=== PATIENT | male | born 1960 | race Caucasian/White ===

== ENCOUNTER 2023-06-09 08:07 | Outpatient (REF) | payer BC, SELFPAY ==
[2023-06-09] VITALS (11 sets, daily range): BP systolic 65–149; BP diastolic 70–89
[2023-06-09 08:32] LABS: % Basophils 0.7 % (0-2); % Eosinophils 7.8 % (0-6); % Immature Granulocytes 0.9 % (0-0.5); % Lymphocytes 23.5 % (20.5-51.1); % Monocytes 7.9 % (1.7-9.3); % Neutrophils 59.2 % (42.2-75.2); Absolute Basophils 0.1 10^3/uL (0-0.2); Absolute Eosinophils 0.7 10^3/uL (0-0.7); Absolute Immature Granulocytes 0.1 10^3/uL (0-0.05); Absolute Lymphocytes 2.2 10^3/uL (1.2-3.4); Absolute Monocytes 0.7 10^3/uL (0.1-0.6); Absolute Neutrophils 5.6 10^3/uL (1.4-6.5); Hematocrit 36.2 % (39.0-52.0); Hemoglobin 13.1 g/dL (13.0-18.0); Mean Corp Hgb Conc. 36.2 g/dL (33.0-37.0); Mean Corpuscular Hgb 31.4 pg (27.0-31.0); Mean Corpuscular Volume 86.8 fL (80.0-94.0); Mean Platelet Volume 8.8 fL (7.4-10.4); Nucleated Red Blood Cells % 0 % (-); Platelet Count 173 10^3/uL (130-400); Red Blood Cell Count 4.17 10^6/uL (4.70-6.10); Red Cell Dist. Width 15.1 % (11.5-14.5); White Blood Cell Count 9.4 10^3/uL (4.8-10.8)
[2023-06-09 08:39] LABS: INR 0.99; PT 13.1 Sec (11.4-14.6)
[2023-06-09 08:46] LABS: Blood Urea Nitrogen 52 mg/dl (9-20); Calcium 9.4 mg/dl (8.4-10.2); Carbon Dioxide 24 mmol/L (22-30); Chloride 100 mmol/L (98-107); Glucose 200 mg/dl (70-99); Potassium 4.1 mmol/L (3.5-5.1); Sodium 131 mmol/L (135-145); eGFR 25.68
[2023-06-09 10:41] LABS: Glucose - Point of Care 241 mg/dl (70-99)
[2023-06-09] MEDS: NON-FORMULARY ITEM 1 MG PO (12:41)
[2023-06-09 14:29] LABS: Glucose - Point of Care 311 mg/dl (70-99)
[2023-06-09 14:35] LABS: Hematocrit 34.4 % (39.0-52.0); Hemoglobin 12.8 g/dL (13.0-18.0)
== END 2023-06-09 15:23 | disposition home or self-care (01) ==
LOC: RADI 08:07
PROVIDERS: Radiology Diagnostic Radiology; ATTENDING PHYSICIAN Specialist; FAMILY PHYSICIAN Family Medicine
DX: E11.22 Type 2 diabetes mellitus with diabetic chronic kidney disease (principal); N18.4 Chronic kidney disease, stage 4 (severe)
CPT/HCPCS: 36415; 50200; 76942; 80048; 82962; 85014; 85018; 85025; 85610; 99152; 99153

== ENCOUNTER 2023-12-20 18:26 | Inpatient (IN) | payer BC, SELFPAY ==
[2023-12-20] VITALS (7 sets, daily range): BP systolic 107–162; BP diastolic 55–104; BMI 38.7
--- NOTE | 2023-12-20 12:32 | ED.GENMED ---
History of Present Illness
General
Chief Complaint: Chest Pain
Source: patient, records and physician (PCP)
Exam Limitations: none
Time Seen by Provider: 12/20/23 12:20
Nursing documentation reviewed up to this point in time: agreed with
History of Present Illness
History of Present Illness:
63-year-old male with a past medical history of hypertension, hyperlipidemia, diabetes, SKELTON and hepatic failure status post liver transplant (2021, through [facility]) who presents to the emergency department for evaluation of multiple complaints
primary complaining of abdominal pain, lethargy also chest pain. Patient reports that he is been feeling unwell for about 2 weeks. He says initially he thought he could have a cold because he was feeling 'foggy' and very fatigued and lethargic.
However, he says that he never developed URI symptoms and his lethargy and fogginess did not improve and instead his symptoms started to worsen. He says a little over a week ago he started having abdominal pain he describes lower abdominal pain
constant 5/10 in intensity with occasional sharper episodes of cramping pain. He reports that he started having intermittent chest pains he says worse laying flat at night usually about 2-3 episodes daily of sharp substernal chest pain radiating
towards the left. Aside from being slightly worse at night no other clear triggering factors. He has not had any nausea or vomiting. He has been markedly constipated over the past week. He has not noted any fevers or chills. He has not had any
urinary symptoms. He has not had any cough, shortness of breath. He denies any other complaints. He said that he spoke with his PCP who referred him to the ER for assessment.
Past History
Past History
ED Past Medical History: Other
ED Past Surgical History: Appendectomy and Other
Social History
Tobacco: Former smoker
Alcohol: None
Personal:
Living: with family
Review of Systems
Review of Systems
All Other Systems: ROS reviewed and negative except as documented in HPI and ROS
Constitutional: Reports fatigue; Denies fever or chills
EENT: Denies sore throat or runny nose
Respiratory: Denies cough or trouble breathing
Cardiac: Reports chest pain; Denies palpitations or syncope
ABD/GI: Reports abdominal pain and constipated; Denies nausea, vomiting or diarrhea
: Denies dysuria, frequency or flank pain
Musculoskeletal: Denies neck pain or back pain
Neurological: Reports dizzy; Denies headache
Phy Exam
Physical Exam
Physical Exam:
General: Awake, alert, oriented x3; no acute distress
Head: Normocephalic, atraumatic
Eyes: Conjunctiva normal, pupils equal round reactive to light bilaterally, sclera anicteric
Throat: Airway intact, handling secretions
Neck: Trachea midline, supple without meningismus
Lungs: Clear to auscultation bilaterally, no wheezing, rales, rhonchi
Heart: Tachycardia with regular rhythm, no murmurs, gallops, or rubs
Abd: Obese but soft, non distended, diffusely tender worse in the left lower quadrant
Neuro: No gross deficit
Skin: no rash
Extremities: Trace lower extremity edema, equal pulses in all extremities
Scores
Heart Failure Risk
Heart Failure Risk Score: Not Applicable
Heart Score for Chest Pain Patients
STEMI patient?: No
History: Slightly or Non-Suspicious
ECG: Normal
Age: >45 - <65 years
Risk Factors: >/= 3 Risk Factors or History of CAD
Troponin: </= Normal Limit
Heart Score for Chest Pain Patients: 3
Heart Score Risk: 2.5% MACE over next 6 weeks
Withdrawal Assessment of Alcohol
Withdrawal Assessment Completed?: Not applicable
Course
Orders/Labs/Results
Orders:
Orders
12/20/23 12:04
Electrocardiogram (*1) Urgent
Reason for Study: Chest Pain
EKG- Treatment ONCE
12/20/23 12:21
CR Chest - 2 Views Urgent
Comment:
Reason For Exam: cp
12/20/23 12:31
CT Abd/pel Without Iv Or Oral Urgent
Reason For Exam: LLQ abd pain,elevated labs
12/20/23 12:32
0.9% Sodium Chloride 500 ml [Nss] 500 ml IV BOLUS
12/20/23 12:40
COVID-19 Antigen Urgent
Source: Nasal Swab
Complete Blood Count/With Diff Urgent
Comprehensive Metabolic Panel Urgent
TSH Reflex To Free T4 Urgent
Troponin I Urgent
12/20/23 13:35
Bladder Scan- Treatment ONCE
12/20/23 13:51
Urinalysis Reflex To Culture Urgent
Date Specimen was Collected: 12/20/23
Time Specimen was Collected: 13:42
Urine Microscopic Reflex Cult Urgent
Urine Culture Urgent
MARISOL Source: U
Specimen Description:
Date Specimen was Collected: 12/20/23
Time Specimen was Collected: 13:42
12/20/23 15:18
Urine Protein/Creat Ratio (Random) [Protein/Creat Ratio (Random)] Urgent
Urine Sodium Urgent
0.9% Sodium Chloride 500 ml [Nss] 500 ml IV BOLUS
Potassium Chloride [KCl] 40 meq PO NOW STA
12/20/23 15:20
Add On- LAB Urgent
Tests Added?: urine protein, urine sodium
Abnormal Lab Results
12/20/23 12/20/23
12:40 13:51
WBC 12.8 H 10^3/uL
(4.8-10.8)
RBC 3.85 L 10^6/uL
(4.70-6.10)
Hgb 12.2 L g/dL
(13.0-18.0)
Hct 33.0 L %
(39.0-52.0)
MCH 31.7 H pg
(27.0-31.0)
RDW 14.7 H %
(11.5-14.5)
Abs Immat Gran (auto) 0.1 H 10^3/uL
(0-0.05)
Absolute Neuts (auto) 8.6 H 10^3/uL
(1.4-6.5)
Absolute Monos (auto) 0.9 H 10^3/uL
(0.1-0.6)
Immature Gran % 0.9 H %
(0-0.5)
Potassium 3.1 L mmol/L
(3.5-5.1)
BUN 33 H mg/dl
(9-20)
Creatinine 3.2 H mg/dL
(0.7-1.3)
Glucose 202 H mg/dl
(70-99)
Total Protein 5.9 L g/dl
(6.3-8.2)
Albumin 3.4 L g/dl
(3.5-5.0)
Ur Occult Blood Reflex 1+ A
(Negative)
Urine RBC 3-6 A /HPF
(0-2)
Urine Bacteria (Reflex) Many A
(Negative)
Urine Glucose 2+ A
(Negative)
Urine Albumin (Reflex) 3+ A
(Neg - Trace)
12/20/23 12:40
12/20/23 12:40
Vital Signs
Initial and Last Documented VS:
Initial Vital Signs
Temp Pulse Resp BP Pulse Ox
36.7 C 114 18 149/104 99
12/20/23 12:14 12/20/23 12:14 12/20/23 12:14 12/20/23 12:14 12/20/23 12:14
Last Documented Vital Signs
Temp Pulse Resp BP Pulse Ox
36.7 C 92 20 130/66 97
12/20/23 12:14 12/20/23 15:21 12/20/23 15:21 12/20/23 15:00 12/20/23 15:15
MDM/Problems Addressed
Differential Diagnosis Includes:
Fatigue: Viral syndrome, UTI, pneumonia, intra-abdominal infection, anemia, uremia, CHF
Chest pain: Costochondritis, gastritis/GERD, pneumonia, pericarditis, ACS less likely clinically
Abdominal pain: Colitis, diverticulitis, constipation, SBP, symptomatic ascites, bowel obstruction somewhat less likely
MDM/Problems Addressed:
63-year-old male with history as documented notable for cirrhosis status-post transplant who presents to the ER for evaluation of fatigue and lethargy over the past 2 weeks associated with lower abdominal pain and also occasional chest pains.
Hypertensive and tachycardic on arrival here. Physical exam as above. Place an IV check labs including a CBC and a CMP, thyroid studies, troponin. Swab for COVID. Check chest x-ray and urinalysis. Check CT abdomen pelvis. Will provide some
fluids. Monitor closely reassess after the above.
Labs reviewed: CBC shows leukocytosis 12.8 of unclear clinical significance. Hemoglobin stable at 12. Acceptable. CMP shows renal insufficiency with a creatinine of 3.2 and BUN of 33�renal function was normal in 2019, most recent creatinine was
in May baseline was 2.7. He has mild hypokalemia with a potassium of 3.1�will replete p.o. Troponin is undetectable, thyroid studies normal. Urinalysis no infection. Chest x-ray unremarkable, CT abdomen/pelvis unremarkable. Certainly brain
fog and fatigue/lethargy could be related to worsening renal function/uremia. We did bladder scan�no postvoid residual urine retention. Abdominal pain could be related to constipation. Will provide some IV fluids potassium admit for nephrology
consultation and trend labs. Discussed with hospitalist.
Chronic conditions affecting care:
Cirrhosis status-post transplant
Acute Exacerbation and/or Progression of Chronic Illness:
Acutely hypertensive
Acute Exacerbation and/or Progression of Chronic Illness: HTN
*Radiology
Radiology exam reviewed: radiology read reviewed
*Pulse Oximetry
Patient hypoxic: no
*EKG
Interpreted by ED Provider?: Yes
Heart Rate: 106
Rate: tachycardiac
Rhythm: sinus and sinus tachycardia
[place]: normal axis
Interval: normal interval
QRS Pattern: normal QRS
Ischemia: no ischemia
*Critical Care Note
Total Time (30-74mins, 75-104mins- exclusive of procedures): Not Applicable
Data Reviewed
Review of Other/Old Records Reveals: Labs and Records
Source: patient, records and physician
Patient Management
Discussion with other providers: Hospitalist (Discussed with hospitalist)
Escalation/DeEscalation of care consider admission/obs:
Admission indicated
ED Attending Note
-
Portions of this chart may have been created with voice recognition software.� Occasional wrong word or��sound alike� substitutions may have occurred due to the inherent limitations of voice recognition software.
Discharge Plan
Departure
Patient Disposition: Admit
Date of Disposition: 12/20/23
Time of Disposition: 15:23
Admit to doctor: Sander
Presentation/result/management discussed w/ accepting MD/DO: Hospitalist
Discharge Problem:
Renal insufficiency, Hypokalemia, Chest pain, Constipation
Prescriptions:
No Action
carvedilol 25 mg Tablet
25 mg PO BID
alprazolam 1 mg Tablet
1 mg PO BIDPRN PRN (Reason: Anxiety)
fexofenadine 180 mg Tablet
180 mg PO DAILY
aspirin 81 mg Tablet,Delayed Release (Dr/Ec)
81 mg PO DAILY
amlodipine 10 mg Tablet
10 mg PO DAILY
allopurinol 300 mg Tablet
300 mg PO DAILY
furosemide 20 mg Tablet
60 mg PO BID
gabapentin 100 mg Capsule
100 mg PO TID
tacrolimus 1 mg Capsule
1 mg PO Q12H
spironolactone 50 mg Tablet
50 mg PO BID
Centrum Silver Tablet
1 tab PO DAILY
ezetimibe 10 mg Tablet
10 mg PO DAILY
insulin glargine U-300 conc [Toujeo SoloStar U-300 Insulin] 300 unit/mL (1.5 mL) Insulin Pen
60 unit SC DAILY
levothyroxine [Synthroid] 88 mcg Tablet
88 mcg PO DAILY
sodium bicarbonate 650 mg Tablet
650 mg PO BID
Ozempic 1 mg/dose (4 mg/3 mL) Pen Injector
1 mg SC ZAMBRANO
famotidine [Pepcid] 20 mg Tablet
20 mg PO DAILY
insulin aspart U-100 [Novolog PenFill U-100 Insulin] 100 unit/mL Cartridge
22 sliding scale dose SC AC
Referrals:
Jaya English MD [Family Provider] -
Interventions
Interventions:
*Risk Screen - Suicide Last Done: 12/20/23 12:14
*General Assessment Last Done: 12/20/23 12:14
*Neglect/Abuse Screening Last Done: 12/20/23 12:14
ED- Fall Risk Assessment Last Done: 12/20/23 13:58
*ED COVID-19 Vaccine History Last Done: 12/20/23 12:14
ED- Cardiac Assessment Last Done: 12/20/23 13:58
ED- Neurological Assessment Last Done: 12/20/23 13:58
Discharge Date and Time
Print Language: CYMRO
[2023-12-20] MEDS: NSS 500 IV ×2 (12:42→16:03)
[2023-12-20 12:57] LABS: % Basophils 0.7 % (0-2); % Eosinophils 3.2 % (0-6); % Immature Granulocytes 0.9 % (0-0.5); % Lymphocytes 20.7 % (20.5-51.1); % Monocytes 7.1 % (1.7-9.3); % Neutrophils 67.4 % (42.2-75.2); Absolute Basophils 0.1 10^3/uL (0-0.2); Absolute Eosinophils 0.4 10^3/uL (0-0.7); Absolute Immature Granulocytes 0.1 10^3/uL (0-0.05); Absolute Lymphocytes 2.7 10^3/uL (1.2-3.4); Absolute Monocytes 0.9 10^3/uL (0.1-0.6); Absolute Neutrophils 8.6 10^3/uL (1.4-6.5); Hemoglobin 12.2 g/dL (13.0-18.0); Mean Corpuscular Hgb 31.7 pg (27.0-31.0); Mean Corpuscular Volume 85.7 fL (80.0-94.0); Nucleated Red Blood Cells % 0 % (-); Platelet Count 216 10^3/uL (130-400); Red Blood Cell Count 3.85 10^6/uL (4.70-6.10); Red Cell Dist. Width 14.7 % (11.5-14.5); White Blood Cell Count 12.8 10^3/uL (4.8-10.8)
[2023-12-20 13:08] LABS: COVID-19 Antigen Negative (Negative)
[2023-12-20 13:09] LABS: ALT (SGPT) 25 U/L (0-50); AST (SGOT) 29 U/L (17-59); Albumin 3.4 g/dl (3.5-5.0); Alkaline Phosphatase 108 U/L (38-126); Blood Urea Nitrogen 33 mg/dl (9-20); Calcium 8.6 mg/dl (8.4-10.2); Carbon Dioxide 26 mmol/L (22-30); Chloride 99 mmol/L (98-107); Glucose 202 mg/dl (70-99); Potassium 3.1 mmol/L (3.5-5.1); Sodium 137 mmol/L (135-145); Total Bilirubin 0.4 mg/dl (0.2-1.3); Total Protein 5.9 g/dl (6.3-8.2); eGFR 20.81
[2023-12-20 13:20] LABS: Troponin I < 0.012 ng/ml
[2023-12-20 13:40] LABS: TSH Reflex To Free T4 4.18 uIU/ml (0.47-4.68)
[2023-12-20 14:23] LABS: Urine Albumin 3+ (Neg - Trace); Urine Bilirubin Negative (Negative); Urine Character Clear (Clear); Urine Color Yellow; Urine Glucose 2+ (Negative); Urine Ketone Negative (Negative); Urine Leukocyte Negative (Negative); Urine Nitrite Negative (Negative); Urine Occult Blood 1+ (Negative); Urine Specific Gravity 1.015 (<1.030); Urine Urobilinogen Negative (Neg - 1+)
[2023-12-20 15:04] LABS: Urine Squamous Cell 0-2 /LPF (Few)
[2023-12-20 15:05] LABS: Urine White Cell 0-2 /HPF (0-5)
[2023-12-20 15:06] LABS: Urine Bacteria Many (Negative)
--- NOTE | 2023-12-20 15:51 | HPS.HSE ---
Family Physician
-
Family Physician: Jaya English
Chief Complaint
-
generalized bodyaches/pain
History of Present Illness
63M HTN, HLD, DM, SKELTON cirrhosis liver transplant 2021 Smooth p/w multiple complaints, primarily complaining of intermittent Abd pain, lethargy, chest pain, and dyspnea on exertion. Reports progressive general malaise 2 wks. Reported initially
consider he had a cold because he was feeling 'foggy,' very fatigued, and lethargic. Denied coughing sneezing. Abdominal pain started 1 wk ago 5/10 in intensity with occasional sharper episodes of cramping pain- associate intermittent nausea.
Denied vomiting. Endorsed poor oral intake appetite. He also reported intermittent chest pains worse laying flat at night, 2-3 episodes daily sharp substernal chest pain radiating towards the left. Pt also has been constipated over the past week.
Denies fever chills or urinary symptoms
Medical History
Past Medical History
Past Medical History: Reports Other (as above)
Past Surgical History: Reports Other (as above)
Social History
Tobacco: Non-smoker
Alcohol: Occasional
Drug: None
Personal:
Living: With Family
Family History
Family History: Not pertinent (reviewed)
Allergies / Home Medications
Allergies reflects when Allergies were last updated in [facility].
Home Medications with original date entered in [facility]
Allergy/Medication List:
Allergies
Allergy/AdvReac Type Severity Reaction Status Date / Time
atorvastatin calcium Allergy Unknown Verified 12/20/23 12:18
[From Lipitor]
codeine Allergy Unknown Verified 12/20/23 12:18
lisinopril Allergy Unknown Verified 12/20/23 12:18
simvastatin [From Zocor] Allergy Unknown Verified 12/20/23 12:18
Mwbtceb-GOU-TwI Reductase Allergy muscle Verified 12/20/23 12:18
Inhibitor cramps
[Qfhxonm-Dof-Ddb Reductase
Inhibitor]
Home Medications
allopurinol 300 mg tablet 300 mg PO DAILY gout 06/07/23
alprazolam 1 mg tablet 1 mg PO BIDPRN PRN Anxiety 06/07/23
amlodipine 10 mg tablet 10 mg PO DAILY Blood Pressure 06/07/23
aspirin 81 mg tablet,delayed release 81 mg PO DAILY Blood Clot Prevention/Tx 06/07/23
carvedilol 25 mg tablet 25 mg PO BID Blood Pressure 06/07/23
ezetimibe 10 mg tablet 10 mg PO DAILY High Cholesterol 06/07/23
fexofenadine 180 mg tablet 180 mg PO DAILY Allergies 06/07/23
furosemide 20 mg tablet 60 mg PO BID Fluid Retention/Swelling 06/07/23
gabapentin 100 mg capsule 100 mg PO TID pain 06/07/23
insulin glargine U-300 conc 300 unit/mL (1.5 mL) subcutaneous pen (Toujeo SoloStar U-300 Insulin) 60 unit SC DAILY diabetes 06/07/23
qpnhbdpvecbo-vruvnmwp-dcrlyd tablet 1 tab PO DAILY Supplement 06/07/23
spironolactone 50 mg tablet 50 mg PO BID Blood Pressure 06/07/23
tacrolimus 1 mg capsule, immediate-release 1 mg PO Q12H liver transplant 202106/07/23
famotidine 20 mg tablet (Pepcid) 20 mg PO DAILY Gastrointestinal Issue 12/20/23
insulin aspart U-100 100 unit/mL subcutaneous cartridge (Novolog PenFill U-100 Insulin aspart) 22 sliding scale dose SC AC diabetes 12/20/23
levothyroxine 88 mcg tablet (Synthroid) 88 mcg PO DAILY Thyroid 12/20/23
semaglutide 1 mg/dose (4 mg/3 mL) subcutaneous pen injector (Ozempic) 1 mg SC ZAMBRANO Diabetes 12/20/23
sodium bicarbonate 650 mg tablet 650 mg PO BID Electrolyte Repletion 12/20/23
Review of Systems
-
A 12 point ROS was completed and negative except as noted: Yes
Constitutional: Reports Other (as below)
Physical Exam
Vital Signs
Vital Signs
Temp Pulse Resp BP Pulse Ox
98.0 F 92 20 130/66 97
12/20/23 12:14 12/20/23 15:21 12/20/23 15:21 12/20/23 15:00 12/20/23 15:15
Physical Exam
General: Other (as below)
Laboratory Results
-
12/20/23 12:40
12/20/23 12:40
Laboratory Results
Total Bilirubin 0.4 mg/dl (0.2-1.3) 12/20/23 12:40
AST 29 U/L (17-59) 12/20/23 12:40
ALT 25 U/L (0-50) 12/20/23 12:40
Alkaline Phosphatase 108 U/L (38-126) 12/20/23 12:40
Troponin I < 0.012 ng/ml 12/20/23 12:40
Impression/Plan
-
ROS
General: Denies fever chills night sweats unexpected weight loss, reports weight gain since improved following increase in Lasix outpt
Neuro: Denies seizure shaking loss of consciousness dizziness vertigo
Psych: denies depression hallucinations confusion manic episodes
Endocrine: Denies polyuria polydipsia polyphagia heat/cold intolerance
HEENT: Denies blindness visual disturbances epistaxis
Pulmonary: denies coughing hemoptysis sneezing reports dyspnea on exertion
Cardiovascular: reports intermittent chest pain denies palpitations reports chronic leg swelling b/l but improved from prior
Hematology: denies signs symptoms of anemia easy bruising/bleeding
Gastrointestinal: reports constipation nausea loss of appetite denies vomiting diarrhea hematemesis hematochezia melena
Genito-Urinary: denies retention incontinence dysuria
Musculoskeletal: reports generalized body-aches pain
Dermatology: denies rash laceration bruising
Physical Exam
General: No pallor, cyanosis, or jaundice. Appears Obese
HEENT: Throat clear. PERRLA Normocephalic atraumatic
NECK: Supple. No JVD Carotid Bruits
RESPIRATORY: Lungs clear to auscultation. No crackles wheezes stridor
CVS: S1, S2 normal. RRR. No murmur, rub or gallop.
ABDOMEN: Soft, non-tender. No distension. BS+/normal.
EXTREMITIES: +1 pitting edema lower ext's b/l no calf tenderness
CONCAVER: AOx3. No focal deficits.
IMPRESSION:
63M HTN, HLD, DM, Gout, SKELTON cirrhosis liver transplant 2021 Smooth p/w multiple complaints, primarily complaining of intermittent Abd pain, lethargy, chest pain, and dyspnea on exertion. Reports progressive general malaise 2 wks. Reported
initially consider he had a cold because he was feeling 'foggy,' very fatigued, and lethargic. Denied coughing sneezing. Abdominal pain started 1 wk ago 5/10 in intensity with occasional sharper episodes of cramping pain- associate intermittent
nausea. Denied vomiting. Endorsed poor oral intake appetite. He also reported intermittent chest pains worse laying flat at night, 2-3 episodes daily sharp substernal chest pain radiating towards the left. Pt also has been constipated over the
past week. Denies fever chills or urinary symptoms
PLAN:
#Progressive EDUARDO/CKD
#possible symptomatic uremia
Tele admit
Received IVF bolus in ED, possible prerenal etiology EDUARDO (poor appetite continued home lasix use w/ dose recently increased)
hold off on further IVF or diuresis for now
monitor renal function
Nephro eval
daily weight I/O
Bladder scan prn
follow up Bladder renal ultrasound
#MOTTA
#Lower ext swelling pitting edema, chronic and improved as per patient
check D-Dimery
Venous duplex
#intermittent chest pain
initial trop neg, follow up repeat
EKG unremarkable
#HTN
Cont Amlodipine Spironolactone with holding parameters
Hold on Lasix as above
#DM
Relatively high insulin requirement home regimen noted
reduced dose for now given poor appetite
moderate sliding scale
Lantus 20U HS Novolog 5U AC
follow up A1c in AM
#SKELTON cirrhosis s/p Liver Transplant 2021 Smooth
LFTs wnl
cont home tacrolimus, check level
CT abd/pelvis unremarkable but limited d/t lack of contrast
#Gout
Uric acid wnl
hold home allopurinol for now
#Constipation
bowel regimen miralax senna docusate started
#GERD
home pepcid reduced to 10 mg daily d/t Cr clearance
dvt ppx heparin
Full Code
I spent a total of 80 minutes with the patient or on the floor. More than 50% of this time involved counseling and coordination of care.
[2023-12-20] MEDS: KCL 40 MEQ PO (16:03)
[2023-12-20 16:34] LABS: Uric Acid 5.8 mg/dl (3.5-8.5)
[2023-12-20 16:57] LABS: Urine Sodium 35 mmol/L (30-90)
[2023-12-20 18:38] LABS: Urine Protein > 2000 mg/dl (0-12)
[2023-12-20 18:40] LABS: Lipase 82 U/L (23-300)
[2023-12-20 19:34] LABS: NT-proBNP 394 pg/ml
[2023-12-20 20:18] LABS: D-Dimer 2.96 ug/mlFEU (0.00-0.50)
[2023-12-20 20:32] LABS: Troponin I 0.013 ng/ml
[2023-12-20] MEDS: COREG 25 MG PO (21:24)
[2023-12-20] MEDS: SENOKOT-S 1 TABLET PO (21:25)
[2023-12-20] MEDS: ALDACTONE 50 MG PO (21:25)
[2023-12-20 21:26] LABS: Glucose - Point of Care 242 mg/dl (70-99)
[2023-12-20] MEDS: LANTUS 0.2 UNITS SC (21:26)
[2023-12-20] MEDS: PROGRAF 1 MG PO (21:26)
[2023-12-20] MEDS: HEPARIN 5000 UNITS SC (21:27)
[2023-12-20] MEDS: NEURONTIN 100 MG PO (21:27)
[2023-12-20] MEDS: SODIUM BICARBONATE 650 MG PO (21:32)
[2023-12-20] MEDS: XANAX 1 MG PO (21:32)
--- NOTE | 2023-12-20 22:00 | PTCARENOTE ---
Patient received from ED via stretcher. Patient ambulated independently to bed, steady gait noted. Patient states he has occasional 'cramping' in abdomen but denies any discomfort at this time. Patient placed on tele monitor. Call gabriel with in
reach. Fall precautions reviewed along with room orientation. Care ongoing. Will monitor.
[2023-12-21] VITALS (7 sets, daily range): BP systolic 112–152; BP diastolic 57–84; PULSE 82–85
[2023-12-21] MEDS: SYNTHROID 88 MCG PO (05:15)
[2023-12-21 07:06] LABS: Glucose - Point of Care 157 mg/dl (70-99)
[2023-12-21 08:06] LABS: % Basophils 0.7 % (0-2); % Eosinophils 5.4 % (0-6); % Lymphocytes 25.8 % (20.5-51.1); % Monocytes 7.8 % (1.7-9.3); % Neutrophils 59.3 % (42.2-75.2); Absolute Basophils 0.1 10^3/uL (0-0.2); Absolute Eosinophils 0.4 10^3/uL (0-0.7); Absolute Immature Granulocytes 0.1 10^3/uL (0-0.05); Absolute Lymphocytes 1.9 10^3/uL (1.2-3.4); Absolute Monocytes 0.6 10^3/uL (0.1-0.6); Absolute Neutrophils 4.2 10^3/uL (1.4-6.5); Hematocrit 27.7 % (39.0-52.0); Hemoglobin 10.3 g/dL (13.0-18.0); Mean Corp Hgb Conc. 37.2 g/dL (33.0-37.0); Mean Corpuscular Hgb 32.8 pg (27.0-31.0); Mean Corpuscular Volume 88.2 fL (80.0-94.0); Mean Platelet Volume 9.2 fL (7.4-10.4); Nucleated Red Blood Cells % 0 % (-); Platelet Count 163 10^3/uL (130-400); Red Blood Cell Count 3.14 10^6/uL (4.70-6.10); Red Cell Dist. Width 14.7 % (11.5-14.5); White Blood Cell Count 7.2 10^3/uL (4.8-10.8)
[2023-12-21 08:07] LABS: Blood Urea Nitrogen 29 mg/dl (9-20); Carbon Dioxide 21 mmol/L (22-30); Chloride 105 mmol/L (98-107); Estimated Creatinine Clearance 36 ml/min; Glucose 141 mg/dl (70-99); Magnesium 1.4 mg/dl (1.6-2.3); Sodium 136 mmol/L (135-145); eGFR 23.42
[2023-12-21 08:19] LABS: Potassium 3.4 mmol/L (3.5-5.1)
--- NOTE | 2023-12-21 09:19 | W.PN.HOSP.TC ---
Today's Communication/Plan
-
monitor renal function
resume home PO lasix
glycemic control
replete K Mg
Assessment / Plan
Assessment / Plan
Physical Exam
General: No pallor, cyanosis, or jaundice. Appears Obese
HEENT: Throat clear. PERRLA Normocephalic atraumatic
NECK: Supple. No JVD Carotid Bruits
RESPIRATORY: Lungs clear to auscultation. No crackles wheezes stridor
CVS: S1, S2 normal. RRR. No murmur, rub or gallop.
ABDOMEN: Soft, non-tender. No distension. BS+/normal.
EXTREMITIES: +1 pitting edema lower ext's b/l no calf tenderness
DIRECTOR OF ACCOUNTS PAYABLE: AOx3. No focal deficits.
IMPRESSION:
63M HTN, HLD, DM, Gout, SKELTON cirrhosis liver transplant 2021 Smooth p/w multiple complaints, primarily complaining of intermittent Abd pain, lethargy, chest pain, and dyspnea on exertion. Reports progressive general malaise 2 wks. Reported
initially consider he had a cold because he was feeling 'foggy,' very fatigued, and lethargic. Denied coughing sneezing. Abdominal pain started 1 wk ago 5/10 in intensity with occasional sharper episodes of cramping pain- associate intermittent
nausea. Denied vomiting. Endorsed poor oral intake appetite. He also reported intermittent chest pains worse laying flat at night, 2-3 episodes daily sharp substernal chest pain radiating towards the left. Pt also has been constipated over the
past week. Denies fever chills or urinary symptoms
PLAN:
#Progressive EDUARDO/CKD
#intermittent 'fogginess' lightheadedness dizzy headache
#possible symptomatic uremia
Tele admit
Received IVF bolus in ED, possible prerenal etiology EDUARDO (poor appetite continued home lasix use w/ dose recently increased)
monitor renal function
Nephro eval appreciated
PO lasix 60 mg BID resumed
daily weight I/O
Bladder scan prn
follow up Bladder renal ultrasound
CT head appreciated no acute abn's
#MOTTA
#Lower ext swelling pitting edema, chronic and improved as per patient
D-Dimer elevated
Venous duplex neg for DVT, MISHA wrap compression therapy ordered for Lower ext's b/l
VQ scan low probability PE
#intermittent chest pain
initial trop neg, follow up repeat
EKG unremarkable
#HTN
Cont Amlodipine Spironolactone with holding parameters
Hold on Lasix as above
#DM
Relatively high insulin requirement home regimen noted
reduced dose for now given poor appetite
moderate sliding scale
Lantus 20U HS Novolog 5U AC
Updated A1c 6.6 Diabetes but at goal DM A1c <7
#SKELTON cirrhosis s/p Liver Transplant 2021 Smooth
LFTs wnl
cont home tacrolimus, check level
CT abd/pelvis unremarkable but limited d/t lack of contrast
#Gout
Uric acid wnl
hold home allopurinol for now d/t EDUARDO as above
#Constipation
bowel regimen miralax senna docusate started
#GERD
home pepcid reduced to 10 mg daily d/t Cr clearance
#Hypokalemia
#Hypomagnesemia
monitor and replete as necessary
dvt ppx heparin
Full Code
I spent a total of 55 minutes with the patient or on the floor. More than 50% of this time involved counseling and coordination of care.
Anticipated Discharge: > 48 hours
Subjective/Interval History
-
Date of Service: December 21, 2023
Notes some improvement in overall symptoms since admission. Continues to endorse intermittent lightheadedness 'fogginess'
Objective Data
-
Labs:
Laboratory Results
12/21/23
06:52
WBC 7.2
Hgb 10.3 L
Hct 27.7 L
Plt Count 163 D
Sodium 136
Potassium 3.4 L
Chloride 105
Carbon Dioxide 21 L
BUN 29 H
Creatinine 2.9 H
Glucose 141 H
Calcium 8.0 L
Vital Signs:
Vital Signs
Temp Pulse Resp BP Pulse Ox
97.9 F 83 17 135/71 96
12/21/23 07:42 12/21/23 07:42 12/21/23 07:42 12/21/23 07:42 12/21/23 07:42
I&O
12/20/23 12/21/23 12/22/23
06:59 06:59 06:59
Intake Total 480 / 480
Balance 480 / 480
[2023-12-21 09:27] LABS: Glycohemoglobin (HgbA1c) 6.6 % (4.0-5.6)
[2023-12-21] MEDS: NOVOLOG FLEXPEN 5 UNITS SC ×3 (09:34→17:51)
[2023-12-21] MEDS: NOVOLOG FLEXPEN-MODERATE RESISTANCE 1 UNITS SC ×2 (09:34→17:50)
[2023-12-21] MEDS: PROGRAF 1 MG PO ×2 (09:35→22:33)
[2023-12-21] MEDS: ZETIA 10 MG PO (09:35)
[2023-12-21] MEDS: SENOKOT-S 1 TABLET PO ×2 (09:35→22:41)
[2023-12-21] MEDS: CLARITIN 10 MG PO (09:35)
[2023-12-21] MEDS: SODIUM BICARBONATE 650 MG PO ×2 (09:35→23:26)
[2023-12-21] MEDS: MIRALAX 17 GRAMS PO (09:35)
[2023-12-21] MEDS: PEPCID 10 MG PO (09:35)
[2023-12-21] MEDS: ASPIR LOW (ENTERIC COATED) 81 MG PO (09:35)
[2023-12-21] MEDS: NEURONTIN 100 MG PO ×3 (09:35→22:33)
[2023-12-21] MEDS: HEPARIN 5000 UNITS SC ×3 (09:35→23:29)
[2023-12-21] MEDS: COREG 25 MG PO ×2 (09:36→22:34)
[2023-12-21] MEDS: ALDACTONE 50 MG PO ×2 (09:36→22:34)
[2023-12-21] MEDS: NORVASC 10 MG PO (09:36)
[2023-12-21] MEDS: THERAGRAN 1 TABLET PO (09:37)
--- NOTE | 2023-12-21 11:07 | CM ---
CM met with Soto at bedside to complete IA this morning. He lives with his in a 2 story townhouse; He is (I) amb and adl's.
History of liver transplant in 2021, admitted to for progressive EDUARDO/CKD with dyspnea.
CM to follow to determine needs for discharge baed on hospitalization.
PCP: Gopal Land
Pharm: [facility] in [place]
[2023-12-21] MEDS: KCL 40 MEQ PO (11:17)
[2023-12-21 11:18] LABS: Glucose - Point of Care 231 mg/dl (70-99)
[2023-12-21] MEDS: MAGNESIUM SULFATE 50 IV (11:18)
--- NOTE | 2023-12-21 12:53 | W.CON.NEPH ---
Consultation
-
Date/Time Consultation Requested: 12/20/23 1837
Date/Time Consultation Performed: 12/21/23 1030
Requesting Provider: Conrad Carrillo
Performing Provider: Maki Powell
Reason for Consultation: CKD4
Medical History
-
Chief Complaint: Gen weakness, body aches, abd pain
History of Present Illness:
63M HTN on coreg, Amlodpine, Spironolactone, CKD4 biopsy proven diabetic nephropathy follows Dr Gomez, baseline cr low 3 range, chr met acidosis on po bicarb therapy, IDDM on Ozempic, HLD/hypertriglyceridemia on Ezetimibe, RYAN cirrhosis s/p liver
transplant 2021 [place] p/w multiple complaints, primarily complaining of intermittent Abd pain, lethargy, chest pain, and dyspnea on exertion. Reports progressive general malaise 2-3 wks. Reported initially consider he had a cold. Denied
coughing sneezing or chills or dysuria. Abdominal pain started 1 wk ago 5/10 in intensity with occasional sharper episodes of cramping pain- associate intermittent nausea. Denied vomiting. Endorsed poor oral intake appetite. He also reported
intermittent bilat lower chest pains worse laying flat at night, 2-3 episodes daily sharp substernal chest pain radiating towards the left. Pt also has been constipated over the past week. CT abd with out contrast was with out acute findings. His
cr was at 3.2, s/p 1lit of NS in ER. cr down to 2.9. Lasix held since admit. Pt reports seeing Transplant service, nephro endo, recently while he was having symptoms. Saw PCP yesterday wh sent to ER for further eval.
Tac levels reportedly were in the range.
Past Medical History
CKD4
Diabetic nephropathy, biopsy-proven May 2023
Hyperlipidemia
History of gastric bypass with reversal At the time of liver transplant
Hypertension
Liver transplant-cirrhosis from [facility]
Complex left renal cyst
Osteopenia
Statin intolerance
Nephrotic range proteinuria
History of hepatocellular cancer prior liver transplant
Gout
Hypothyroidism
Obesity
Past Surgical History: Other ( appendectomy, left knee arthroscopic, lap band bariatric procedure 2010,LAFJI L4-L5 and S1, liver transplant April 2021, hepatic mass ablation, kidney biopsy May 2023)
Social History
former smoker, lives with and son, no alcohol
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
Tobacco: Former Smoker
Alcohol: None
Personal:
Living: With Family
Employment: Disabled
Family History
Father age of 64 with a heart failure, mother age of 84 with diabetes. Sister alive with ovarian cancer, another sister with type 2 diabetes and another sister with CHF
Allergies / Home Medications
Allergy/AdvReac Type Severity Reaction Status Date / Time
atorvastatin calcium Allergy Unknown Verified 12/20/23 12:18
[From Lipitor]
codeine Allergy Unknown Verified 12/20/23 12:18
lisinopril Allergy Unknown Verified 12/20/23 12:18
simvastatin [From Zocor] Allergy Unknown Verified 12/20/23 12:18
Ymuhapg-IBF-HfN Reductase Allergy muscle Verified 12/20/23 12:18
Inhibitor cramps
[Zvsbcpz-Ilg-Wxe Reductase
Inhibitor]
�Medication �Instructions �Recorded �Confirmed �Type
allopurinol 300 mg tablet 300 mg PO DAILY gout 06/07/23 12/20/23 History
alprazolam 1 mg tablet 1 mg PO BIDPRN PRN Anxiety 06/07/23 12/20/23 History
amlodipine 10 mg tablet 10 mg PO DAILY Blood Pressure 06/07/23 12/20/23 History
aspirin 81 mg tablet,delayed 81 mg PO DAILY Blood Clot 06/07/23 12/20/23 History
release Prevention/Tx
carvedilol 25 mg tablet 25 mg PO BID Blood Pressure 06/07/23 12/20/23 History
ezetimibe 10 mg tablet 10 mg PO DAILY High Cholesterol 06/07/23 12/20/23 History
fexofenadine 180 mg tablet 180 mg PO DAILY Allergies 06/07/23 12/20/23 History
furosemide 20 mg tablet 60 mg PO BID Fluid 06/07/23 12/20/23 History
Retention/Swelling
gabapentin 100 mg capsule 100 mg PO TID pain 06/07/23 12/20/23 History
insulin glargine U-300 conc 300 60 unit SC DAILY diabetes 06/07/23 12/20/23 History
unit/mL (1.5 mL) subcutaneous pen
(Toujeo SoloStar U-300 Insulin)
houcatvmpykz-xpebocgd-vemkhj tablet 1 tab PO DAILY Supplement 06/07/23 12/20/23 History
spironolactone 50 mg tablet 50 mg PO BID Blood Pressure 06/07/23 12/20/23 History
tacrolimus 1 mg capsule, 1 mg PO Q12H liver transplant 202106/07/23 12/20/23 History
immediate-release
famotidine 20 mg tablet (Pepcid) 20 mg PO DAILY Gastrointestinal 12/20/23 12/20/23 History
Issue
insulin aspart U-100 100 unit/mL 22 sliding scale dose SC AC 12/20/23 12/20/23 History
subcutaneous cartridge (Novolog diabetes
PenFill U-100 Insulin aspart)
levothyroxine 88 mcg tablet 88 mcg PO DAILY Thyroid 12/20/23 12/20/23 History
(Synthroid)
semaglutide 1 mg/dose (4 mg/3 mL) 1 mg SC ZAMBRANO Diabetes 12/20/23 12/20/23 History
subcutaneous pen injector (Ozempic)
sodium bicarbonate 650 mg tablet 650 mg PO BID Electrolyte Repletion 12/20/23 12/20/23 History
Review of Systems
-
All compelte 12 point ROS have been inquired and found negative other than state din HPI
Physical Exam
Vital Signs
Vital Signs
Temp Pulse Resp BP Pulse Ox
97.9 F 83 16 150/82 98
12/21/23 07:42 12/21/23 11:59 12/21/23 11:59 12/21/23 11:59 12/21/23 11:59
Lab Results
WBC 7.2 10^3/uL (4.8-10.8) 12/21/23 06:52
RBC 3.14 10^6/uL (4.70-6.10) L 12/21/23 06:52
Hgb 10.3 g/dL (13.0-18.0) L 12/21/23 06:52
Hct 27.7 % (39.0-52.0) L 12/21/23 06:52
Plt Count 163 10^3/uL (130-400) D 12/21/23 06:52
Sodium 136 mmol/L (135-145) 12/21/23 06:52
Potassium 3.4 mmol/L (3.5-5.1) L 12/21/23 06:52
Chloride 105 mmol/L (98-107) 12/21/23 06:52
Carbon Dioxide 21 mmol/L (22-30) L 12/21/23 06:52
BUN 29 mg/dl (9-20) H 12/21/23 06:52
Creatinine 2.9 mg/dL (0.7-1.3) H 12/21/23 06:52
eGFR 23.42 12/21/23 06:52
Glucose 141 mg/dl (70-99) H 12/21/23 06:52
Calcium 8.0 mg/dl (8.4-10.2) L 12/21/23 06:52
Eqg-M-Inrfhfumhes Pept 394 pg/ml 12/20/23 12:40
Albumin 3.4 g/dl (3.5-5.0) L 12/20/23 12:40
renal US:
There is only a small amount of urine within the bladder, with estimated volume of 33 cc. No focal abnormality of the bladder. Left ureteral jet is visualized. Right ureteral jet is not visualized.
Right kidney length is 13.2 cm and left kidney length is 13.9 cm. There is no evidence for pelvicalyceal dilation bilaterally. In the lateral mid right kidney, there is a small simple cyst, measuring 1.0 x 1.1 x 1.1 cm.
In the upper central left kidney, there is a parapelvic cyst measuring 3.2 x 2.6 x 2.1 cm.
There is no evidence for solid mass or calculus involving either kidney.
IMPRESSION: There is only a small amount of urine within the bladder, with no focal abnormality demonstrated. Left ureteral jet only is visualized.
Bilateral renal cysts. No evidence for pelvicalyceal dilation bilaterally.
CT abd .pelvis with out contrast:
IMPRESSION:
Small umbilical hernia containing fat, small volume fluid and mild stranding.
Limited evaluation of intestinal tract without oral or intravenous contrast with sigmoid diverticulosis noted. No intestinal obstruction or free air.
Small simple parapelvic left renal cyst. Symmetric renal excretion.
Mild splenomegaly.
Prior cholecystectomy.
CXR:
IMPRESSION:
No acute cardiopulmonary process.
Physical Exam
General: Awake, Alert, Oriented, AOx3, No Distress and Nontoxic
HEENT: EOMI, Anicteric, Conjunctivae Clear, Facial Symmetry, Neck Supple and Trachea Midline
Respiratory: Clear, Normal Excursion and Nonlabored Respirations
Cardiac: S1/S2 and Regular Rate/Rhythm
Breast: Deferred by me
Abdomen: Soft and Other (Obese abdomen, generalized TTP)
Musculoskeletal: No Cyanosis and Edema (left leg 1+, right leg 2+)
Skin: No Rash
Neuro: Nonfocal/Grossly Intact
Psych: Mood/afflect pleasant, Insight/judgement good and Appropriate
Assessment/Plan
-
IMP:
CKD4-baseline cr 3.2
Nephrotic range proteinuria(11grams/gm of cr) confirmed diabetic nephropathy on kidney biopsy May 2023
MOTTA
Lower ext swelling pitting edema, chronic and improved as per patient
intermittent chest pain
hypokalemia
Anemia
HTN
IDDM
RYAN cirrhosis s/p Liver Transplant 2021 [place]
Chr met acidosis on po bicarb
Gout
Constipation
GERD
Plan:
A/w gen weakness, aches, abd pain
no clear etiology, CT abd neg. UA with out UTI
cr seem to be at baseline
He is aware of future progression of CKD and likely need of HD
current symp likely not from uremia, BUN only 29
replace k
VQ scan pending, no DVT On US legs
cont IS meds for liver transplant
cont po bicarb for met acidosis
BP stable-cont anti HTN meds
would resume lasix as wt start to increase or edema worsens
replace mg
monitor h/h-decreasing
d/w pt
[2023-12-21] MEDS: NOVOLOG FLEXPEN-MODERATE RESISTANCE 3 UNITS SC (13:36)
[2023-12-21 16:34] LABS: Glucose - Point of Care 177 mg/dl (70-99)
[2023-12-21] MEDS: LASIX 60 MG PO (17:48)
[2023-12-21] MEDS: TYLENOL 650 MG PO (18:14)
--- NOTE | 2023-12-21 19:30 | PTCARENOTE ---
Pt c/o worsening 'fogginess', lightheadedness, blurry vision, facial numbness, facial flushing. Dr Cruz notified via [facility] @15:45. CT head, carotid US, ECHO ordered. Orthostatic VS taken.
[2023-12-21 21:28] LABS: Glucose - Point of Care 202 mg/dl (70-99)
[2023-12-21] MEDS: XANAX 1 MG PO (22:33)
[2023-12-21] MEDS: KCL 20 MEQ PO (22:34)
[2023-12-21] MEDS: LANTUS 0.2 UNITS SC (22:37)
[2023-12-22 03:00] VITALS: BP 111/51
[2023-12-22] MEDS: SYNTHROID 88 MCG PO (05:45)
[2023-12-22 06:00] VITALS: BMI 38.6
[2023-12-22 06:50] LABS: % Eosinophils 5.9 % (0-6); % Immature Granulocytes 1.1 % (0-0.5); % Lymphocytes 22.8 % (20.5-51.1); % Monocytes 8.2 % (1.7-9.3); Absolute Basophils 0.1 10^3/uL (0-0.2); Absolute Eosinophils 0.5 10^3/uL (0-0.7); Absolute Immature Granulocytes 0.1 10^3/uL (0-0.05); Absolute Lymphocytes 1.9 10^3/uL (1.2-3.4); Absolute Monocytes 0.7 10^3/uL (0.1-0.6); Absolute Neutrophils 5.1 10^3/uL (1.4-6.5); Hematocrit 32.2 % (39.0-52.0); Hemoglobin 11.8 g/dL (13.0-18.0); Mean Corp Hgb Conc. 36.6 g/dL (33.0-37.0); Mean Corpuscular Hgb 32.8 pg (27.0-31.0); Mean Corpuscular Volume 89.4 fL (80.0-94.0); Mean Platelet Volume 9.4 fL (7.4-10.4); Nucleated Red Blood Cells % 0 % (-); Platelet Count 181 10^3/uL (130-400); Red Cell Dist. Width 14.7 % (11.5-14.5); White Blood Cell Count 8.3 10^3/uL (4.8-10.8)
[2023-12-22 06:51] LABS: Lactic Acid 0.7 mmol/L (0.7-2.0)
[2023-12-22 07:03] LABS: Troponin I 0.012 ng/ml
--- NOTE | 2023-12-22 07:23 | W.PN.HOSP.TC ---
Today's Communication/Plan
-
discharge
Assessment / Plan
Assessment / Plan
Physical Exam
General: No pallor, cyanosis, or jaundice. Appears Obese
HEENT: Throat clear. PERRLA Normocephalic atraumatic
NECK: Supple. No JVD Carotid Bruits
RESPIRATORY: Lungs clear to auscultation. No crackles wheezes stridor
CVS: S1, S2 normal. RRR. No murmur, rub or gallop.
ABDOMEN: Soft, non-tender. No distension. BS+/normal.
EXTREMITIES: +1 pitting edema lower ext's b/l no calf tenderness
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 No focal deficits.
IMPRESSION:
63M HTN, HLD, DM, Gout, SKELTON cirrhosis liver transplant 2021 [place] p/w multiple complaints, primarily complaining of intermittent Abd pain, lethargy, chest pain, and dyspnea on exertion. Reports progressive general malaise 2 wks. Reported
initially consider he had a cold because he was feeling 'foggy,' very fatigued, and lethargic. Denied coughing sneezing. Abdominal pain started 1 wk ago 5/10 in intensity with occasional sharper episodes of cramping pain- associate intermittent
nausea. Denied vomiting. Endorsed poor oral intake appetite. He also reported intermittent chest pains worse laying flat at night, 2-3 episodes daily sharp substernal chest pain radiating towards the left. Pt also has been constipated over the
past week. Denies fever chills or urinary symptoms
PLAN:
#Progressive EDUARDO/CKD
#intermittent 'fogginess' lightheadedness dizzy headache
#possible symptomatic uremia
Tele admit
Received IVF bolus in ED, possible prerenal etiology EDUARDO (poor appetite continued home lasix use w/ dose recently increased)
monitor renal function
Nephro eval appreciated
PO lasix 60 mg BID to resume next day following discharge.
daily weight I/O
Bladder scan prn
Bladder Renal US appreciated no acute abn's
CT head appreciated no acute abn's
Carotid US appreciated no acute abn's
ECHO appreciated EF 60-65% no significant valve abn's noted
#MOTTA
#Lower ext swelling pitting edema, chronic and improved as per patient
D-Dimer elevated
Venous duplex neg for DVT, MISHA wrap compression therapy ordered for Lower ext's b/l
VQ scan low probability PE
#intermittent chest pain
trop neg x3
EKG unremarkable
Cardio eval appreciated outpt follow up for possible benefit stress test atypical chest pain
#HTN
Cont Amlodipine Spironolactone with holding parameters
Hold on Lasix as above (resume next day following discharge)
#DM
Relatively high insulin requirement home regimen noted
reduced dose for now given poor appetite
moderate sliding scale
Lantus 20U HS Novolog 5U AC
Updated A1c 6.6 Diabetes but at goal DM A1c <7
#SKELTON cirrhosis s/p Liver Transplant 2021 [place]
LFTs wnl
cont home tacrolimus, check level
CT abd/pelvis unremarkable but limited d/t lack of contrast
#Gout
Uric acid wnl
hold home allopurinol for now d/t EDUARDO as above
cont hold on home allopurinol follow up with nephrology or primary care provider to determine when safe to resume
#Constipation
bowel regimen miralax senna docusate started
#GERD
home pepcid reduced to 10 mg daily d/t Cr clearance
#Hypokalemia
#Hypomagnesemia
monitor and replete as necessary
dvt ppx heparin
Full Code
Medically stable for discharge home with outpatient follow up recommendations.
I spent a total of 50 minutes with the patient or on the floor. More than 50% of this time involved counseling and coordination of care.
Anticipated Discharge: Today
Subjective/Interval History
-
Date of Service: December 22, 2023
Overall reports improvement in symptoms. Denies new acute issues. eager to go home.
Objective Data
-
Labs:
Laboratory Results
12/21/23 12/22/23
15:49 06:19
WBC 8.3
Hgb 11.8 L
Hct 32.2 L
Plt Count 181
Sodium Cancelled Pending
Potassium Cancelled Pending
Chloride Cancelled Pending
Carbon Dioxide Cancelled Pending
BUN Cancelled Pending
Creatinine Cancelled Pending
Glucose Cancelled Pending
Calcium Cancelled Pending
Vital Signs:
Vital Signs
Temp Pulse Resp BP Pulse Ox
98.1 F 79 18 111/51 96
12/22/23 03:00 12/22/23 03:00 12/22/23 03:00 12/22/23 03:00 12/22/23 03:00
I&O
12/21/23 12/22/23 12/23/23
06:59 06:59 06:59
Intake Total 480 / 480 1200 / 1200
Balance 480 / 480 1200 / 1200
[2023-12-22 07:29] LABS: Blood Urea Nitrogen 30 mg/dl (9-20); Calcium 8.7 mg/dl (8.4-10.2); Carbon Dioxide 24 mmol/L (22-30); Chloride 103 mmol/L (98-107); Estimated Creatinine Clearance 35 ml/min; Glucose 139 mg/dl (70-99); Magnesium 1.8 mg/dl (1.6-2.3); Phosphorus 3.6 mg/dl (2.5-4.5); Potassium 4.1 mmol/L (3.5-5.1); Sodium 139 mmol/L (135-145); eGFR 22.49
[2023-12-22 07:51] VITALS: BP 144/82
[2023-12-22 08:09] LABS: Glucose - Point of Care 225 mg/dl (70-99)
[2023-12-22] MEDS: NOVOLOG FLEXPEN 5 UNITS SC ×2 (09:02→12:29)
[2023-12-22] MEDS: NOVOLOG FLEXPEN-MODERATE RESISTANCE 3 UNITS SC (09:03)
[2023-12-22] MEDS: CLARITIN 10 MG PO (09:07)
[2023-12-22] MEDS: MIRALAX 17 GRAMS PO (09:07)
[2023-12-22] MEDS: THERAGRAN 1 TABLET PO (09:08)
[2023-12-22] MEDS: KCL 20 MEQ PO (09:08)
[2023-12-22] MEDS: SENOKOT-S 1 TABLET PO (09:08)
[2023-12-22] MEDS: PEPCID 10 MG PO (09:08)
[2023-12-22] MEDS: SODIUM BICARBONATE 650 MG PO (09:08)
[2023-12-22] MEDS: ALDACTONE 50 MG PO (09:08)
[2023-12-22] MEDS: NEURONTIN 100 MG PO ×2 (09:08→17:23)
[2023-12-22] MEDS: ZETIA 10 MG PO (09:08)
[2023-12-22] MEDS: COREG 25 MG PO (09:22)
[2023-12-22] MEDS: LASIX 60 MG PO (09:22)
[2023-12-22] MEDS: ASPIR LOW (ENTERIC COATED) 81 MG PO (09:22)
[2023-12-22] MEDS: HEPARIN 5000 UNITS SC (09:22)
[2023-12-22] MEDS: PROGRAF 1 MG PO (09:23)
[2023-12-22] MEDS: NORVASC 10 MG PO (09:23)
[2023-12-22] MEDS: XANAX 1 MG PO (09:43)
[2023-12-22 11:41] LABS: Glucose - Point of Care 185 mg/dl (70-99)
[2023-12-22 11:44] VITALS: BP 144/87
--- NOTE | 2023-12-22 12:09 | W.PN.NEPH.PH ---
Today's Communication / Plan
-
follow labs, ortho vitals-TEDs
likely resume lasix soon
Assessment/Plan
-
IMP:
CKD4-baseline cr 3.2
Nephrotic range proteinuria(11grams/gm of cr) confirmed diabetic nephropathy on kidney biopsy May 2023
MOTTA
Lower ext swelling pitting edema, chronic and improved as per patient
intermittent chest pain
hypokalemia
Anemia
HTN
IDDM
SKELTON cirrhosis s/p Liver Transplant 2021 [place]
Chr met acidosis on po bicarb
Gout
Constipation
GERD
Plan:
A/w gen weakness, aches, abd pain
no clear etiology, CT abd neg. UA with out UTI
cr seem to be at baseline
He is aware of future progression of CKD and likely need of HD
current symp likely not from uremia, BUN only 30
VQ scan low probability, no DVT On US legs
edema still which seem chronic-currently lasix on hold-resume soon
reportedly felt facial numbness and dizzy last night-carotid US, echo pending, CT head neg
cont IS meds for liver transplant
cont po bicarb for met acidosis
BP stable-cont anti HTN meds , mild orthostatic, cont TEDs
d/w pt
-
-
Date of Service: December 22, 2023
CC / HPI / ROS
-
Chief Complaint:
CKD
History of Present Illness:
cr stable 3, wt same
hb stable 11.8
mild ortho vitals last night.
no fever
Review of Systems:
improving lower cp, no sob
edema still
over all feels better today and wants to go home
Labs
-
Labs:
WBC 8.3 10^3/uL (4.8-10.8) 12/22/23 06:19
RBC 3.60 10^6/uL (4.70-6.10) L 12/22/23 06:19
Hgb 11.8 g/dL (13.0-18.0) L 12/22/23 06:19
Hct 32.2 % (39.0-52.0) L 12/22/23 06:19
Plt Count 181 10^3/uL (130-400) 12/22/23 06:19
Sodium 139 mmol/L (135-145) 12/22/23 06:19
Potassium 4.1 mmol/L (3.5-5.1) 12/22/23 06:19
Chloride 103 mmol/L (98-107) 12/22/23 06:19
Carbon Dioxide 24 mmol/L (22-30) 12/22/23 06:19
BUN 30 mg/dl (9-20) H 12/22/23 06:19
Creatinine 3.0 mg/dL (0.7-1.3) H 12/22/23 06:19
eGFR 22.49 12/22/23 06:19
Glucose 139 mg/dl (70-99) H 12/22/23 06:19
Calcium 8.7 mg/dl (8.4-10.2) 12/22/23 06:19
Phosphorus 3.6 mg/dl (2.5-4.5) 12/22/23 06:19
Oie-U-Pwllbfhoipd Pept 394 pg/ml 12/20/23 12:40
Albumin 3.4 g/dl (3.5-5.0) L 12/20/23 12:40
Physical Exam
-
Vital Signs:
Vital Signs
Temp Pulse Resp BP Pulse Ox
97.5 F 79 18 144/87 98
12/22/23 11:44 12/22/23 11:44 12/22/23 11:44 12/22/23 11:44 12/22/23 11:44
Cardiovascular:: Regular rate and rhythm
Respiratory:: Bilateral: CTA
Lung Excursion:: Normal
Abdomen:: Nontender and Soft
Extremity Edema:: +1: Bilateral:
Baptiste Catheter: No
[2023-12-22 12:11] LABS: Glucose - Point of Care 194 mg/dl (70-99)
[2023-12-22] MEDS: NOVOLOG FLEXPEN-MODERATE RESISTANCE 1 UNITS SC (12:30)
[2023-12-22 12:35] VITALS: O2SAT 98
--- NOTE | 2023-12-22 13:11 | CON.CAR ---
Addendum entered and electronically signed by Jesus Israel MD (Ellie) 12/22/23 14:47:
I saw and examined the patient.
The APPLIQUE CUTTER's note was reviewed and I agree with the note.
Comment:
63-year-old male with multiple risk factors including hypertension, dyslipidemia, diabetes, SKELTON status post liver transplant, and CKD 4 who is hospitalized for abdominal pain. Cardiology is consulted for chest pain. Patient reports that he has
paroxysms of chest pain up to 10 times per day. They are stabbing in nature, left-sided and last a few seconds. They resolve on their own. They are not associated with exertion. There is no radiation, shortness of breath, palpitations,
presyncope, or syncope associated. He has had multiple troponins checked which are negative. His ECG is nonischemic.
He should have outpatient follow-up with cardiology with possible stress test for his atypical chest pain. Pain does not sound anginal in nature but he does have many risk factors for coronary artery disease. He also needs help with lipid
management given that he is unable to take statins due to history of liver transplant. We will schedule follow-up with our office.
Original Note:
Consultation
Consultation Request
Date/Time Consultation Requested: 12/22/23 1231
Date/Time Consultation Performed: 12/22/23 1300
Requesting Provider: Dr. Cruz
Performing Provider: Pennie LENNON for Dr. Israel
Reason for Consultation: chest pain
Medical History
-
Chief Complaint: chest pain
History of Present Illness:
63 y/o male with hypertension, dyslipidemia, diabetes, SKELTON with liver failure s/p transplant 2021 ([facility]), CKD4, and anxiety who is here for evaluation of 3 weeks of light-headedness and abdominal pain that became severe. He was also have chest
pains intermittently. He was sent to the ER by his primary physician. Abdominal symptoms improved. We are consulted for chest discomfort. It is sharp and intermittent and lasts seconds. In fact, it happened while I was in the room, then resolved. It
happens in different spots on his chest. It is not associated with exertion. It happens about 3-4 times per day for the past 3 weeks. EKG and troponin are unremarkable. Echo showed normal LV function.
Past Medical History
Past Medical History: HTN, Hypercholesterolemia, IDDM (type 2), Renal Failure and Other (as above)
Past Surgical History: Other (liver tx)
Social History
Tobacco: Former Smoker (25 years ago)
Family History
Family History: CAD (sister of [place])
Allergies / Home Medications
Allergy/AdvReac Type Severity Reaction Status Date / Time
atorvastatin calcium Allergy Unknown Verified 12/20/23 12:18
[From Lipitor]
codeine Allergy Unknown Verified 12/20/23 12:18
lisinopril Allergy Unknown Verified 12/20/23 12:18
simvastatin [From Zocor] Allergy Unknown Verified 12/20/23 12:18
Bdoeexs-FBU-KqL Reductase Allergy muscle Verified 12/20/23 12:18
Inhibitor cramps
[Qyczedr-Bqp-Dxm Reductase
Inhibitor]
�Medication �Instructions �Recorded �Confirmed �Type
allopurinol 300 mg tablet 300 mg PO DAILY gout 06/07/23 12/20/23 History
alprazolam 1 mg tablet 1 mg PO BIDPRN PRN Anxiety 06/07/23 12/20/23 History
amlodipine 10 mg tablet 10 mg PO DAILY Blood Pressure 06/07/23 12/20/23 History
aspirin 81 mg tablet,delayed 81 mg PO DAILY Blood Clot 06/07/23 12/20/23 History
release Prevention/Tx
carvedilol 25 mg tablet 25 mg PO BID Blood Pressure 06/07/23 12/20/23 History
ezetimibe 10 mg tablet 10 mg PO DAILY High Cholesterol 06/07/23 12/20/23 History
fexofenadine 180 mg tablet 180 mg PO DAILY Allergies 06/07/23 12/20/23 History
furosemide 20 mg tablet 60 mg PO BID Fluid 06/07/23 12/20/23 History
Retention/Swelling
gabapentin 100 mg capsule 100 mg PO TID pain 06/07/23 12/20/23 History
insulin glargine U-300 conc 300 60 unit SC DAILY diabetes 06/07/23 12/20/23 History
unit/mL (1.5 mL) subcutaneous pen
(Toujeo SoloStar U-300 Insulin)
dhmncxnohcvv-ptzjtfnx-rhzmtf tablet 1 tab PO DAILY Supplement 06/07/23 12/20/23 History
spironolactone 50 mg tablet 50 mg PO BID Blood Pressure 06/07/23 12/20/23 History
tacrolimus 1 mg capsule, 1 mg PO Q12H liver transplant 202106/07/23 12/20/23 History
immediate-release
famotidine 20 mg tablet (Pepcid) 20 mg PO DAILY Gastrointestinal 12/20/23 12/20/23 History
Issue
insulin aspart U-100 100 unit/mL 22 sliding scale dose SC AC 12/20/23 12/20/23 History
subcutaneous cartridge (Novolog diabetes
PenFill U-100 Insulin aspart)
levothyroxine 88 mcg tablet 88 mcg PO DAILY Thyroid 12/20/23 12/20/23 History
(Synthroid)
semaglutide 1 mg/dose (4 mg/3 mL) 1 mg SC ZAMBRANO Diabetes 12/20/23 12/20/23 History
subcutaneous pen injector (Ozempic)
sodium bicarbonate 650 mg tablet 650 mg PO BID Electrolyte Repletion 12/20/23 12/20/23 History
Review of Systems
-
History Source: Patient
All other systems: Negative unless noted
Constitutional: Other (light-headedness)
Cardiac: Chest Pain
Abdomen/GI: Abdominal Pain
Musculoskeletal: Edema (mild BLE edema)
Physical Exam
Vital Signs
Temp Pulse Resp BP Pulse Ox
97.5 F 79 18 144/87 98
12/22/23 11:44 12/22/23 11:44 12/22/23 11:44 12/22/23 11:44 12/22/23 11:44
Lab Results
12/22/23 06:19
12/22/23 06:19
Troponin I 0.012 ng/ml 12/22/23 06:19
Ngq-L-Virofcibgxn Pept 394 pg/ml 12/20/23 12:40
Physical Exam
General: Well Developed, Well Nourished and No Apparent Distress
HEENT: Normocephalic and Anicteric
Respiratory: Clear and Non Labored Respirations
Cardiac: Regular Rhythm, Murmur (II/ systolic) and Peripheral Edema (mild BLE edema)
Musculoskeletal: Edema
Skin: Warm and Dry
Neuro: AO x 3
Psych: Calm
Impression / Plan
-
Chest pain:
-CP is atypical and EKG, troponin, tele unremarkable
-does not sound cardiac, but plenty of risk factors- can consider OP stress. He reports his stress two years ago was fine.
Mild :
-monitor over time
HTN:
-stable overall
-continue meds and monitor
Hx liver tx:
-per IM
-on anti-rejection meds
-continue to follow with transplant team
DM:
-on insulin
CKD4:
-nephrology is following
LE edema:
-managed with Lasix as OP, held- per nephro- to resume soon
Dyslipidemia:
-reports he is intolerant to statin, also on anti-rejection meds
-he is on Zetia
-OP follow-up
Data Reviewed
-
EKG: Tracing Personally Visualized and interpreted (ST at 106 BPM)
Radiology: Report Reviewed by me (CXR: No acute cardiopulmonary process.)
Medical Tests (Nuc Med, Echo etc): Report Reviewed by me (echo : Normal left ventricular size and systolic function. LVEF 60-65%. Mild LV concentric hypertrophy. Normal RV size and function. Mild aortic stenosis (peak/mean gradient
28/16 mmHg, URIEL 1.4 cm2). Top normal aortic root (SOV 3.8 cm). )
Labs: Labs Reviewed by me
[2023-12-22 15:24] VITALS: BP 137/76
[2023-12-22 16:35] LABS: Glucose - Point of Care 158 mg/dl (70-99)
[2023-12-22] MEDS: NOVOLOG FLEXPEN SC (17:26)
[2023-12-22] MEDS: NOVOLOG FLEXPEN-MODERATE RESISTANCE SC (17:26)
[2023-12-22] MEDS: HEPARIN SC (17:26)
--- NOTE | 2023-12-22 17:26 | W.DCSUMMARY ---
Discharge Summary
Discharge Data
Date of Admission: 12/20/23
Date of Discharge: 12/22/23
-
Pending Results: No
Discharge Plan
-
Patient Disposition: Home (Routine Discharge)
Discharge Diagnosis/Procedures: Acute Kidney Injury vs progressive Chronic Kidney Disease
Atypical Chest Pain
Hypertension
Diabetes
History SKELTON cirrhosis status post Liver Transplant 2021 Smooth
Gout
GERD
Hypokalemia
Hypomagnesemia
Condition: Fair
Diet: Low Cholesterol, 2 Gram Sodium and Diabetic, Carb Controlled
Activity: As tolerated
Driving Restrictions: Not until seen by your Dr
Bathing Restrictions: None
Blood Work: Repeat BMP and Magnesium Level 1 day after discharge (Tuesday) and on Tuesday, results to be forwarded to primary care provider and your Cloth Bin Packer. Scripts have been provided to facilitate.
Other Services: PT
Specialty Instructions: Weigh Daily- Call MD for wt gain/loss 3 lbs overnight/5 lbs in 1 week
Activity Restrictions/Additional Instructions:
Follow up with primary care provider and Nephrology in 1 week of discharge. Follow up with Cardiology in 2-4 weeks of discharge.
Pepcid has been reduced to 10 mg due to worsening kidney function.
Allopurinol also on hold due to worsening kidney function, follow up with Nephrology or Primary care provider to determine when safe to resume.
Given GI discomfort, hold ozempic for now and follow up with Endocrinology or your primary care provider to determine when safe to resume.
Please take medications as prescribed/recommended and follow up with primary care provider and/or other healthcare provider involved in your care for refills and/or further adjustment to your medication regimen as necessary.
Referrals:
Jesus Israel MD (Ellie) [Active] - in two to four weeks
Jaya English MD [Family Provider] - in one week
Nadia Gomez MD [Active] - in one week
Prescriptions:
New
famotidine 20 mg Tablet
10 mg PO DAILY 30 Days Qty: 15 0RF
Continued
carvedilol 25 mg Tablet
25 mg PO BID
alprazolam 1 mg Tablet
1 mg PO BIDPRN PRN (Reason: Anxiety)
fexofenadine 180 mg Tablet
180 mg PO DAILY
aspirin 81 mg Tablet,Delayed Release (Dr/Ec)
81 mg PO DAILY
amlodipine 10 mg Tablet
10 mg PO DAILY
gabapentin 100 mg Capsule
100 mg PO TID
tacrolimus 1 mg Capsule
1 mg PO Q12H
spironolactone 50 mg Tablet
50 mg PO BID
rgclalecpenj-wvwzccrl-bdhgjs Tablet
1 tab PO DAILY
ezetimibe 10 mg Tablet
10 mg PO DAILY
insulin glargine U-300 conc [Toujeo SoloStar U-300 Insulin] 300 unit/mL (1.5 mL) Insulin Pen
60 unit SC DAILY
levothyroxine [Synthroid] 88 mcg Tablet
88 mcg PO DAILY
sodium bicarbonate 650 mg Tablet
650 mg PO BID
insulin aspart U-100 [Novolog PenFill U-100 Insulin] 100 unit/mL Cartridge
22 sliding scale dose SC AC
Held
allopurinol 300 mg Tablet
300 mg PO DAILY
Hold Instructions: Follow up with Nephrology or Primary care provider to determine when safe to resume.
furosemide 20 mg Tablet
60 mg PO BID
Hold Instructions: Resume on 12/23/23.
Ozempic 1 mg/dose (4 mg/3 mL) Pen Injector
1 mg SC ZAMBRANO
Hold Instructions: Follow up with your Realty Loan Specialist or Primary care provider to determine when safe to resume
Discontinued
famotidine [Pepcid] 20 mg Tablet
20 mg PO DAILY
Discharge Orders:
Discharge Patient (As Directed); Ordered 12/22/23
Ordered By: Paulie-Willy Sheu
Discharge Date and Time
Print Language: ERITREAN
== END 2023-12-22 18:18 | disposition home or self-care (01) | DRG 699 ==
LOC: 3 WEST ACU 18:26
PROVIDERS: ADMITTING PHYSICIAN Internal Medicine; CONSULT PHYSICIAN Student in an Organized Health Care Education/Training Program; EMERGENCY PHYSICIAN Emergency Medicine; FAMILY PHYSICIAN Family Medicine; OTHER PHYSICIAN Internal Medicine
DX: E11.22 Type 2 diabetes mellitus with diabetic chronic kidney disease (principal); E87.20 Acidosis, unspecified; Z94.4 Liver transplant status; Z87.891 Personal history of nicotine dependence; N17.9 Acute kidney failure, unspecified; N18.4 Chronic kidney disease, stage 4 (severe); Z11.52 Encounter for screening for COVID-19; K59.00 Constipation, unspecified; E87.6 Hypokalemia; N28.1 Cyst of kidney, acquired; K74.60 Unspecified cirrhosis of liver; K75.81 Nonalcoholic steatohepatitis (NASH); M10.9 Gout, unspecified; K21.9 Gastro-esophageal reflux disease without esophagitis; E83.42 Hypomagnesemia; Z98.84 Bariatric surgery status
CPT/HCPCS: 70450; 71046; 74176; 76770; 78582; 80048; 80053; 80197; 81003; 81015; 82962; 83036; 83605; 83690; 83735; 83880; 84100; 84156; 84300; 84443; 84484; 84550; 85025; 85379; 87086; 87811; 93005; 93306; 93880; 93970; 96360; 96361; 97116; 97163; 97167; 99285; A9540; A9567

== ENCOUNTER 2024-01-04 17:17 | Inpatient (IN) | payer BC, SELFPAY ==
[2024-01-04 13:42] VITALS: BP 175/94
--- NOTE | 2024-01-04 13:58 | ED.GENMED ---
ED Provider Triage
-
Attestation: A medical screening examination has been initiated by a qualified medical provider. Based on the assessment performed at this time, it has been determined that an emergent medical condition may exist and the patient has been informed
that further medical evaluation and possible additional diagnostic testing may be needed.
HPI: 63 yo male sent in from PCP office for swelling of extremities and 15 lb weight gain. Had liver transplant 2021.
GENERAL: Alert , in no apparent distress
EYE: No visual abnormalities.
ENT: No visible abnormalities.
LUNGS: No acute respiratory distress
NEUROLOGICAL: Alert and oriented
SKIN: Skin intact. No visible changes.
MUSCULOSKELETAL: Swelling bilateral LE's and hands noted.
PSYCH: Normal and appropriate interaction.
This is a medical evaluation conducted in person to initiate diagnostic evaluation and provide initial therapeutics. Please see further documentation by the treating clinician.
History of Present Illness
General
Chief Complaint: Swelling
Source: patient
Exam Limitations: none
Time Seen by Provider: 01/04/24 13:58
Nursing documentation reviewed up to this point in time: agreed with
History of Present Illness
History of Present Illness:
63 yo male w h/o HTN, HLD, ascites, esophageal varices, IDDM, hepatocellular carcinoma with liver transplant 2021, lap band surgery, appendectomy sent in from Cardiology office for swelling of extremities, abdomen and 15 lb weight gain. States on
discharge 12/21 he taken off Lasix due to his kidney functions and no replacement diuretic. He re started his Lasix 8 days ago due to his swelling. He denies CP, SOB.
Past History
Past History
ED Past Medical History: Cancer (Hepatocellular carcinoma), HTN, Hypercholesterolemia, IDDM and Psychiatric (Anxiety)
ED Past Surgical History: Appendectomy, Orthopedic, Tonsilectomy and Other (Liver transplant 2021, Lap-Band surgery 2010)
Social History
Tobacco: Former smoker
Alcohol: None
Personal:
Living: with family
Review of Systems
Review of Systems
Allergies reviewed?: Yes
All Other Systems: ROS reviewed and negative except as documented in HPI and ROS
Constitutional: Reports fatigue; Denies fever
Respiratory: Denies trouble breathing
Cardiac: Denies chest pain
ABD/GI: Reports other (post liver transplant saw surgeon at [place] 3 weeks ago, MRI was 'good'); Denies abdominal pain, nausea, vomiting, diarrhea, constipated or anorexia
: Denies dysuria or difficulty voiding
Musculoskeletal: Reports edema
Skin: Reports no symptoms
Neurological: Reports no symptoms
Phy Exam
Physical Exam
Physical Exam:
GENERAL: No acute distress. A&Ox3.
CONSTITUTIONAL: Afebrile.
EYES: Clear, conjunctivae normal
ENMT: moist mucus membranes, Pharynx nl
RESPIRATORY: Regular respirations, nonlabored, lungs clear.
CARDIOVASCULAR: Regular rate and rhythm, no murmurs, no rubs.
GI: Obese, semi firm, nontender, normal BS
MUSCULOSKELETAL: Hands puffy, bilateral +1-2 pitting edema LEs. Well perfused.
SKIN: Warm, dry, pink
PSYCH: Normal mood and affect. Well kept, interactive and appropriate
NEUROLOGIC: Awake, alert and oriented. No focal neurological deficits
Scores
Heart Failure Risk
Heart Failure Risk Score: Not Applicable
Course
Orders/Labs/Results
Orders:
Orders
01/04/24 Lunch
Cholesterol Lowering
At Your Request: Full Participation
Does patient need a safe tray?: No
Fluid Restriction: 1200 mL/day (40 oz)
Cholesterol Lowering: Sodium, 2 Gram
Potassium, 2 gram
01/04/24 13:49
EKG [Electrocardiogram (*1)] Urgent
Reason for Study: Fatigue / Weakness
EKG- Treatment ONCE
01/04/24 13:56
Chest [CR Chest - 2 Views ] Urgent
Comment:
Reason For Exam: SOB
01/04/24 14:00
Complete Blood Count/With Diff Urgent
Comprehensive Metabolic Panel Urgent
NT-proBNP Urgent
Troponin I Urgent
01/04/24 15:53
Furosemide [Lasix] 60 mg IV NOW STA
01/04/24 16:35
Admit/Transfer Patient As Directed
Co-Sign Provider:
Level of Care: Inpatient admission
Assign to:: Telemetry
Physician / Group: [email or web address]
Diagnosis: Progressive CKD,Proven Diabetic Nephropathy HX Nephrotic syndromme
Reason for Telemetry: Subacute Heart Failure
Date to Stop Telemetry: 01/06/24
Time to Stop Telemetry: 11:00
Reason for Hospitalization: Progressive CKD, Proven Diabetic Nephropathy HX Nephrotic syndrome
Volume overload
Expected length of stay greater than two midnights?: Yes
ELOS- Estimated Length of Stay in days: 5
I certify the patient meets the requirements for IP care: Yes
01/04/24 16:39
Code Status As Directed
Resuscitation Status: Full Code
01/04/24 18:27
Acetaminophen [Tylenol] 650 mg PO Q4HPRN PRN
Bisacodyl [Dulcolax] 10 mg RECTAL [id number] PRN
Docusate W/Senna [Senokot-S] 1 tablet PO BIDPRN PRN
Polyethylene Glycol Powder [Miralax] 17 grams PO DAILYPRN PRN
01/04/24 18:27
NEPHROLOGY CONSULT Routine
Consulting Provider: Casper Love V.
Was physician already notified: Yes
Reason for consult: Progressive CKD,Proven Diabetic Nephropathy HX Nephrotic syndromme
Activity As Directed
Activity Level: With Assistance
Intake/ Output As Directed
Frequency: Per unit guidelines
Vital Signs As Directed
Frequency: Per unit guidelines
Weight As Directed
Frequency: Daily
DX Deep Vein Thrombosis Video Routine
01/04/24 19:01
Artificial Tears (Pf) [Refresh Eye Drops (Pf)] 1 drops BOTH EYES TIDPRN PRN
01/04/24 20:00
Alprazolam [Xanax] 1 mg PO BID
Carvedilol [Coreg] 12.5 mg PO BID
Heparin 5,000 units SC Q12
Sodium Bicarbonate 650 mg PO BID
Tacrolimus [Prograf] 1 mg PO Q12
01/04/24 22:00
Gabapentin [Neurontin] 100 mg PO TID
01/05/24 06:00
Basic Metabolic Panel IN AM
Cardiovascular Evaluation IN AM
Complete Blood Count/No Diff IN AM
TSH IN AM
Levothyroxine [Synthroid] 88 mcg PO DAILY @ 0600
01/05/24 08:00
Amlodipine [Norvasc] 10 mg PO DAILY
Aspirin Low Dose EC [Aspir Low (Enteric Coated)] 81 mg PO DAILY
Ezetimibe [Zetia] 10 mg PO DAILY
Famotidine [Pepcid] 20 mg PO DAILY
Furosemide [Lasix] 80 mg IV DAILY
Loratadine [Claritin] 10 mg PO DAILY
Multivitamin [Theragran] 1 tablet PO DAILY
insulin degludec [Tresiba FlexTouch U-100] 30 unit SC DAILY
01/06/24 06:00
Basic Metabolic Panel IN AM
01/06/24 11:00
DC Protocol for Telemetry ONCE
01/07/24 06:00
Basic Metabolic Panel IN AM
Abnormal Lab Results
01/04/24
14:00
RBC 3.27 L 10^6/uL
(4.70-6.10)
Hgb 10.8 L g/dL
(13.0-18.0)
Hct 29.7 L %
(39.0-52.0)
MCH 33.0 H pg
(27.0-31.0)
Abs Immat Gran (auto) 0.1 H 10^3/uL
(0-0.05)
Immature Gran % 1.3 H %
(0-0.5)
Eosinophils % 7.0 H %
(0-6)
BUN 35 H mg/dl
(9-20)
Creatinine 3.3 H mg/dL
(0.7-1.3)
Glucose 226 H mg/dl
(70-99)
Total Protein 5.8 L g/dl
(6.3-8.2)
Albumin 3.3 L g/dl
(3.5-5.0)
01/04/24 14:00
01/04/24 14:00
Vital Signs
Initial and Last Documented VS:
Initial Vital Signs
Temp Pulse Resp BP Pulse Ox
98.1 F 81 18 175/94 99
01/04/24 13:42 01/04/24 13:42 01/04/24 13:42 01/04/24 13:42 01/04/24 13:42
Last Documented Vital Signs
Temp Pulse Resp BP Pulse Ox
97.8 F 87 17 171/88 98
01/04/24 18:28 01/04/24 20:32 01/04/24 18:28 01/04/24 20:32 01/04/24 18:28
MDM/Problems Addressed
Differential Diagnosis Includes:
CHF,
MDM/Problems Addressed:
63 yo male w h/o HTN, HLD, ascites, esophageal varices, IDDM, hepatocellular carcinoma with liver transplant 2021, lap band surgery, appendectomy sent in from Cardiology office for swelling of extremities, abdomen and 15 lb weight gain. States on
discharge 12/21 he taken off Lasix due to his kidney functions and no replacement diuretic. He re started his Lasix 8 days ago due to his swelling. He denies CP, SOB.
Afebrile, NAD
CBC: No clinically significant abnormality
CMP: BUN/creat trending up 35/3.3. Close to his baseline. Glucose 226 otherwise unremarkable
Troponin within normal limits
BNP 665
CXR: Unremarkable
3:40 p.m.
Consulted Nephrology Dr. Love who recommends restarting Lasix
Will admit to monitor kidney function
Hospitalist notified of admission.
Case discussed with Dr. Rosario who agrees with plan
Dr. Love in to see pt. ]
*Critical Care Note
Total Time (30-74mins, 75-104mins- exclusive of procedures): Not Applicable
ED Attending Note
-
Portions of this chart may have been created with voice recognition software.� Occasional wrong word or��sound alike� substitutions may have occurred due to the inherent limitations of voice recognition software.
Discharge Plan
Departure
Patient Disposition: Admit
Date of Disposition: 01/04/24
Time of Disposition: 15:50
Presentation/result/management discussed w/ accepting MD/DO: Hospitalist
Condition: Fair
Discharge Problem:
Volume overload
Interventions
Interventions:
*Risk Screen - Suicide Last Done: 01/04/24 13:47
*General Assessment Last Done: 01/04/24 13:47
*Neglect/Abuse Screening Last Done: 01/04/24 13:47
ED- Fall Risk Assessment Last Done: 01/04/24 17:42
*ED COVID-19 Vaccine History Last Done: 01/04/24 13:48
*Nursing Disposition Last Done: 01/04/24 18:17
ED- Cardiac Assessment Last Done: 01/04/24 14:45
ED- Pulmonary Assessment Last Done: 01/04/24 14:45
ED-Skin Assessment Last Done: 01/04/24 14:45
Discharge Date and Time
Discharge Date/Time: 01/04/24 18:17
[2024-01-04 14:10] LABS: % Basophils 0.7 % (0-2); % Immature Granulocytes 1.3 % (0-0.5); % Lymphocytes 20.7 % (20.5-51.1); % Monocytes 6.4 % (1.7-9.3); % Neutrophils 63.9 % (42.2-75.2); Absolute Basophils 0.1 10^3/uL (0-0.2); Absolute Eosinophils 0.6 10^3/uL (0-0.7); Absolute Immature Granulocytes 0.1 10^3/uL (0-0.05); Absolute Lymphocytes 1.7 10^3/uL (1.2-3.4); Absolute Monocytes 0.5 10^3/uL (0.1-0.6); Absolute Neutrophils 5.3 10^3/uL (1.4-6.5); Hematocrit 29.7 % (39.0-52.0); Hemoglobin 10.8 g/dL (13.0-18.0); Mean Corp Hgb Conc. 36.4 g/dL (33.0-37.0); Mean Corpuscular Volume 90.8 fL (80.0-94.0); Mean Platelet Volume 9.1 fL (7.4-10.4); Nucleated Red Blood Cells % 0 % (-); Platelet Count 178 10^3/uL (130-400); Red Blood Cell Count 3.27 10^6/uL (4.70-6.10); Red Cell Dist. Width 14.2 % (11.5-14.5); White Blood Cell Count 8.3 10^3/uL (4.8-10.8)
[2024-01-04 14:30] LABS: ALT (SGPT) 21 U/L (0-50); AST (SGOT) 22 U/L (17-59); Albumin 3.3 g/dl (3.5-5.0); Alkaline Phosphatase 89 U/L (38-126); Blood Urea Nitrogen 35 mg/dl (9-20); Calcium 8.5 mg/dl (8.4-10.2); Carbon Dioxide 23 mmol/L (22-30); Chloride 104 mmol/L (98-107); Glucose 226 mg/dl (70-99); Potassium 4.3 mmol/L (3.5-5.1); Sodium 138 mmol/L (135-145); Total Bilirubin 0.3 mg/dl (0.2-1.3); Total Protein 5.8 g/dl (6.3-8.2); eGFR 20.06
[2024-01-04 14:31] LABS: NT-proBNP 665 pg/ml; Troponin I < 0.012 ng/ml
[2024-01-04 14:45] VITALS: BP 148/82
[2024-01-04 15:00] VITALS: BP 143/81
--- NOTE | 2024-01-04 16:07 | W.CON.NEPH ---
Consultation
-
Date/Time Consultation Requested: 01/04/24 3:45 PM
Date/Time Consultation Performed: 01/04/24, 4:00 PM
Requesting Provider: Stacie Villela
Performing Provider: Dr. Love
Reason for Consultation: CKD 4
Medical History
-
Chief Complaint: Chronic kidney disease stage IV/volume overload
History of Present Illness:
63M HTN on coreg, Amlodpine, Spironolactone, CKD4 biopsy proven diabetic nephropathy follows Dr Gomez, baseline cr low 3 range, chr met acidosis on po bicarb therapy, IDDM on Ozempic, HLD/hypertriglyceridemia on Ezetimibe, RYAN cirrhosis s/p liver
transplant 2021 Smooth The patient was just admitted to the hospital at the end of November 2023 with congestive heart failure exacerbation at which point he was given diuresis and then discharged on 60 mg twice daily of Lasix. He is now
gaining 15 pounds and cardiology sent him over to the emergency room from their office for volume overload. His creatinine is at 3.3 off its previous 3.0 baseline from 12/22/23 and we were asked to see the patient.He denies shortness of breath. He
has extensive pitting edema.
Past Medical History
CKD4
Diabetic nephropathy, biopsy-proven May 2023
Hyperlipidemia
History of gastric bypass with reversal At the time of liver transplant
Hypertension
Liver transplant-cirrhosis from [facility]
Complex left renal cyst
Osteopenia
Statin intolerance
Nephrotic range proteinuria
History of hepatocellular cancer prior liver transplant
Gout
Hypothyroidism
Obesity
Past Surgical History: Other ( appendectomy, left knee arthroscopic, lap band bariatric procedure 2010,LAFJI L4-L5 and S1, liver transplant April 2021, hepatic mass ablation, kidney biopsy May 2023)
Social History
former smoker, lives with and son, no alcohol
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
Tobacco: Former Smoker
Alcohol: None
Personal:
Living: With Family
Employment: Disabled
Family History
Father age of 64 with a heart failure, mother age of 84 with diabetes. Sister alive with ovarian cancer, another sister with type 2 diabetes and another sister with CHF
Allergies / Home Medications
Allergy/AdvReac Type Severity Reaction Status Date / Time
atorvastatin calcium Allergy Unknown Verified 01/04/24 13:48
[From Lipitor]
codeine Allergy Unknown Verified 01/04/24 13:48
lisinopril Allergy Unknown Verified 01/04/24 13:48
simvastatin [From Zocor] Allergy Unknown Verified 01/04/24 13:48
Qzfemgp-WXQ-DyU Reductase Allergy muscle Verified 01/04/24 13:48
Inhibitor cramps
[Xhkejtw-Rab-Qbg Reductase
Inhibitor]
�Medication �Instructions �Recorded �Confirmed �Type
allopurinol 300 mg tablet 150 mg PO DAILY gout 06/07/23 01/04/24 History
alprazolam 1 mg tablet 1 mg PO BID 06/07/23 01/04/24 History
amlodipine 10 mg tablet 10 mg PO DAILY Blood Pressure 06/07/23 01/04/24 History
aspirin 81 mg tablet,delayed 81 mg PO DAILY Blood Clot 06/07/23 01/04/24 History
release Prevention/Tx
carvedilol 25 mg tablet 12.5 mg PO BID Blood Pressure 06/07/23 01/04/24 History
ezetimibe 10 mg tablet 10 mg PO DAILY High Cholesterol 06/07/23 01/04/24 History
fexofenadine 180 mg tablet 180 mg PO DAILY Allergies 06/07/23 01/04/24 History
furosemide 20 mg tablet 60 mg PO BID Fluid 06/07/23 01/04/24 History
Retention/Swelling
gabapentin 100 mg capsule 100 mg PO TID pain 06/07/23 01/04/24 History
ymaqgpmofskt-zlmklfcd-oyruox tablet 1 tab PO DAILY Supplement 06/07/23 01/04/24 History
spironolactone 50 mg tablet 50 mg PO BID Blood Pressure 06/07/23 01/04/24 History
tacrolimus 1 mg capsule, 1 mg PO Q12H liver transplant 202106/07/23 01/04/24 History
immediate-release
insulin aspart U-100 100 unit/mL 22 sliding scale dose SC AC 12/20/23 01/04/24 History
subcutaneous cartridge (Novolog diabetes
PenFill U-100 Insulin aspart)
levothyroxine 88 mcg tablet 88 mcg PO DAILY Thyroid 12/20/23 01/04/24 History
(Synthroid)
sodium bicarbonate 650 mg tablet 650 mg PO BID Electrolyte Repletion 12/20/23 01/04/24 History
acetaminophen 500 mg tablet 1,000 mg PO Q6HPRN PRN mild pain 01/04/24 01/04/24 History
(Tylenol Extra Strength)
famotidine 20 mg tablet 20 mg PO DAILY 01/04/24 01/04/24 History
fluticasone propionate 50 2 spray intranasal DAILYPRN PRN 01/04/24 01/04/24 History
mcg/actuation nasal congestion
spray,suspension
insulin degludec 100 unit/mL (3 60 unit SC DAILY 01/04/24 01/04/24 History
mL) subcutaneous pen (Tresiba
FlexTouch U-100 insulin)
polyvinyl alcohol-povidone 0.5 1 drp BOTH EYES TIDPRN PRN dry eyes 01/04/24 01/04/24 History
%-0.6 % eye drops (Clear Eyes
Natural Tears)
Review of Systems
-
History Source: Patient
All other systems: Negative unless noted
Constitutional: Other (15 pound weight gain)
Musculoskeletal: Edema
Physical Exam
Vital Signs
Vital Signs
Temp Pulse Resp BP Pulse Ox
98.1 F 77 16 148/82 98
01/04/24 13:42 01/04/24 14:45 01/04/24 14:47 01/04/24 14:45 01/04/24 14:47
Lab Results
01/04/24 14:00
01/04/24 14:00
WBC 8.3 10^3/uL (4.8-10.8) 01/04/24 14:00
RBC 3.27 10^6/uL (4.70-6.10) L 01/04/24 14:00
Hgb 10.8 g/dL (13.0-18.0) L 01/04/24 14:00
Hct 29.7 % (39.0-52.0) L 01/04/24 14:00
Plt Count 178 10^3/uL (130-400) 01/04/24 14:00
Sodium 138 mmol/L (135-145) 01/04/24 14:00
Potassium 4.3 mmol/L (3.5-5.1) 01/04/24 14:00
Chloride 104 mmol/L (98-107) 01/04/24 14:00
Carbon Dioxide 23 mmol/L (22-30) 01/04/24 14:00
BUN 35 mg/dl (9-20) H 01/04/24 14:00
Creatinine 3.3 mg/dL (0.7-1.3) H 01/04/24 14:00
eGFR 20.06 01/04/24 14:00
Glucose 226 mg/dl (70-99) H 01/04/24 14:00
Calcium 8.5 mg/dl (8.4-10.2) 01/04/24 14:00
Zfd-G-Nqxgtqqgmho Pept 665 pg/ml 01/04/24 14:00
Albumin 3.3 g/dl (3.5-5.0) L 01/04/24 14:00
Physical Exam
General: Awake, Alert, Oriented, AOx3, No Distress and Nontoxic,obese
HEENT: EOMI, Anicteric, Conjunctivae Clear, Facial Symmetry, Neck Supple and Trachea Midline
Respiratory: Clear, Normal Excursion and Nonlabored Respirations
Cardiac: S1/S2 and Regular Rate/Rhythm
Breast: Deferred by me
Abdomen: Soft and Other (Obese abdomen, generalized TTP)
Musculoskeletal: No Cyanosis and Edema (left leg 2+, right leg 2+)
Skin: No Rash
Neuro: Nonfocal/Grossly Intact, no asterixis
Psych: Mood/afflect pleasant, Insight/judgement good and Appropriate
Data Reviewed
-
Radiology: Image Personally Visualized and interpreted (Chest x-ray reviewed by myself no evidence of congestive heart failure)
Labs: Labs Reviewed by me (. BMP, CBC)
Old Records: Reviewed ( reviewed. Creatinine from date 12/22/23, creatinine 3, Nephrology consultation reviewed from date 12/21/23)
Assessment/Plan
-
Impression:
CKD4-baseline cr 3.2
Nephrotic range proteinuria(11grams/gm of cr) confirmed diabetic nephropathy on kidney biopsy May 2023
MOTTA
Lower ext swelling pitting edema, chronic and improved as per patient
intermittent chest pain
hypokalemia
Anemia
HTN
IDDM
RYAN cirrhosis s/p Liver Transplant 2021 Smooth
Chr met acidosis on po bicarb
Gout
Constipation
GERD
Plan:
Patient with obvious hypervolemia.
Initiate Lasix 80 mg IV twice a day
Worsening edema, likely a function of advancing diabetic nephropathy
He is aware of future progression of CKD and likely need of HD, possibly even this admission iff IV diuresis is ineffective and or kidney function worsens
current symptoms likely not from uremia, BUN only 35
Daily weights. Accurate I's and O's
continue Immunosuppression meds for liver transplant
cont po bicarb for met acidosis
BP stable-continue anti HTN meds
monitor h/h, we'll provide CLIFFORD if hemoglobin drops below 10
--- NOTE | 2024-01-04 16:30 | HPS.HSE ---
Family Physician
-
Family Physician: Jaya English
Chief Complaint
-
wt gain and Leg swelling
History of Present Illness
63M HTN, HLD, DM, Gout, Ascites, Esophagea; varices, SKELTON cirrhosis liver, transplant 2021 [facility] for [facility] sent in from PCP/ Card office to ER for mickey Arguello;
- Worsening swelling of extremities
- Noted 15 lb weight gain over last 13-14 days
- He was admiited on 12/19 , discharged 12/21 , Lasix DC'd due to kidney function, he restarted it 8 days ago
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
- HX Bipsy proven diabetic nephropathy
ROS
He denies CP, SOB.
Afebrile, NAD
Medical History
Past Medical History
Past Medical History: Reports Other (as above)
Past Surgical History: Reports Other (as above)
Social History
Tobacco: Non-smoker
Alcohol: Occasional
Drug: None
Personal:
Living: With Family
Family History
Family History: Not pertinent (reviewed)
Allergies / Home Medications
Allergies reflects when Allergies were last updated in [facility] [facility]
Home Medications with original date entered in [facility]
Allergy/Medication List:
Allergies
Allergy/AdvReac Type Severity Reaction Status Date / Time
atorvastatin calcium Allergy Unknown Verified 12/20/23 12:18
[From Lipitor]
codeine Allergy Unknown Verified 12/20/23 12:18
lisinopril Allergy Unknown Verified 12/20/23 12:18
simvastatin [From Zocor] Allergy Unknown Verified 12/20/23 12:18
Kcotnhz-HYX-VjT Reductase Allergy muscle Verified 12/20/23 12:18
Inhibitor cramps
[Gppbrkr-Vse-Twm Reductase
Inhibitor]
Home Medications
allopurinol 300 mg tablet 300 mg PO DAILY gout 06/07/23
alprazolam 1 mg tablet 1 mg PO BIDPRN PRN Anxiety 06/07/23
amlodipine 10 mg tablet 10 mg PO DAILY Blood Pressure 06/07/23
aspirin 81 mg tablet,delayed release 81 mg PO DAILY Blood Clot Prevention/Tx 06/07/23
carvedilol 25 mg tablet 25 mg PO BID Blood Pressure 06/07/23
ezetimibe 10 mg tablet 10 mg PO DAILY High Cholesterol 06/07/23
fexofenadine 180 mg tablet 180 mg PO DAILY Allergies 06/07/23
furosemide 20 mg tablet 60 mg PO BID Fluid Retention/Swelling 06/07/23
gabapentin 100 mg capsule 100 mg PO TID pain 06/07/23
insulin glargine U-300 conc 300 unit/mL (1.5 mL) subcutaneous pen (Toujeo SoloStar U-300 Insulin) 60 unit SC DAILY diabetes 06/07/23
ynrfkmetamgn-uoydknuw-rcirqy tablet 1 tab PO DAILY Supplement 06/07/23
spironolactone 50 mg tablet 50 mg PO BID Blood Pressure 06/07/23
tacrolimus 1 mg capsule, immediate-release 1 mg PO Q12H liver transplant 202106/07/23
famotidine 20 mg tablet (Pepcid) 20 mg PO DAILY Gastrointestinal Issue 12/20/23
insulin aspart U-100 100 unit/mL subcutaneous cartridge (Novolog PenFill U-100 Insulin aspart) 22 sliding scale dose SC AC diabetes 12/20/23
levothyroxine 88 mcg tablet (Synthroid) 88 mcg PO DAILY Thyroid 12/20/23
semaglutide 1 mg/dose (4 mg/3 mL) subcutaneous pen injector (Ozempic) 1 mg SC ZAMBRANO Diabetes 12/20/23
sodium bicarbonate 650 mg tablet 650 mg PO BID Electrolyte Repletion 12/20/23
Review of Systems
-
A 12 point ROS was completed and negative except as noted: Yes
Constitutional: Reports Other (as below)
Physical Exam
Vital Signs
Vital Signs
Temp Pulse Resp BP Pulse Ox
98.1 F 77 16 148/82 98
01/04/24 13:42 01/04/24 14:45 01/04/24 14:47 01/04/24 14:45 01/04/24 14:47
Physical Exam
General: No Apparent Distress and Conversant; No Respiratory Distress
HEENT: Anicteric and Moist mucous membranes
Respiratory: Clear; No Wheezes
Cardiac: S1/S2 and Regular Rhythm; No Murmur
Breast: Deferred by me
GI: Soft and Non Tender
Genito-urinary: Deferred by me
Musculoskeletal: Edema, Left Upper Extremity (puffy hand ), Edema, Right Upper Extremity (puffy hand ), Edema, Left Lower Extremity, Edema, Right Lower Extremity and Other (Hands puffy, bilateral +1-2 pitting edema LEs. Well perfused.)
Neuro: AO x 3
Psych: Calm and Intact Judgment/Insight
Laboratory Results
-
01/04/24 14:00
01/04/24 14:00
Laboratory Results
Total Bilirubin 0.3 mg/dl (0.2-1.3) 01/04/24 14:00
AST 22 U/L (17-59) 01/04/24 14:00
ALT 21 U/L (0-50) 01/04/24 14:00
Alkaline Phosphatase 89 U/L (38-126) 01/04/24 14:00
Troponin I < 0.012 ng/ml 01/04/24 14:00
Data Reviewed
-
Diagnostic Radiology: Report Reviewed by me
Medical Tests (Nuc Med, Echo, EKG etc): Report Reviewed by me
Lab Data: Labs Reviewed by me
Old Records: Reviewed
Impression/Plan
-
Reviewed VS: unremarkable VS
Gained 6.5 kg over 13- 14 days ( 129.047 kg ==> 135.5 kg)
Selected Entries
10/31/24
06:00 01/04/24
14:45
Actual Weight 129.047 kg 135.5 kg
Laboratory Tests
12/21/23 12/22/23 01/04/24
06:52 06:19 14:00
Hgb 10.3 L 11.8 L 10.8 L
MCV 90.8
Potassium 4.3
Carbon Dioxide 23
BUN 35 H
Creatinine 3.0 H 3.3 H
Troponin I < 0.012
Wwx-V-Lyvfhyzsfrq Pept 665
Albumin 3.3 L
CXR: unremarkable
EKG
NORMAL SINUS RHYTHM
NORMAL ECG
WHEN COMPARED WITH ECG OF 20-DEC-2023 12:08,
NO SIGNIFICANT CHANGE WAS FOUND
Confirmed by DANIEL MARTINEZ MD ([id number]) on 01/04/2024 3:04:25 PM
12/22/23: TTE
Normal LVEF 60-65%.
Mild LV concentric hypertrophy.
Normal RV size and function.
Mild aortic stenosis (peak/mean gradient 28/16 mmHg, URIEL 1.4 cm2).
Top normal aortic root (SOV 3.8 cm). )
Last hospitalist admission: Date of Admission: 12/20/23 -Date of Discharge: 12/22/23
DC DX:
Acute Kidney Injury vs progressive Chronic Kidney Disease
Atypical Chest Pain
Hypertension
Diabetes
History SKELTON cirrhosis status post Liver Transplant 2021 [facility]
Gout
GERD
Hypokalemia
Hypomagnesemia
ASSESSMENT & PLAN
Volume overload with Motta with anasarca
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
Proven Diabetic Nephropathy
HX Nephrotic range proteinuria(11grams/gm of cr) confirmed diabetic nephropathy on kidney biopsy May 2023
Lower ext swelling pitting edema, chronic
Patient is aware of future progression of CKD and likely need of HD
Normokalemia, Nl HCO3 on Na HCO3
- Renal consulted
- IV Lasix 80 daily
- f/u Wt and IOs
- Daily BMP
MOTTA
Lower ext swelling pitting edema, chronic and improved as per patient
- Recent NEG Venous duplex neg for DVT
- Recent VQ scan low probability PE
- MISHA wrap compression
HX intermittent chest pain
NEG TPNI
EKG unremarkable
[facility] HTN
Cont Amlodipine Spironolactone with holding parameters
Hold on Lasix as above (resume next day following discharge)
IDDM : Updated A1c 6.6 Diabetes but at goal DM A1c <7
- Relatively high insulin requirement home regimen noted
- moderate ISS
SKELTON cirrhosis s/p Liver Transplant 2021 [facility]
LFTs wnl
- cont home tacrolimus, check level
Gout
- hold home allopurinol for now d/t EDUARDO as above
HX Constipation
bowel regimen miralax senna docusate started
HX GERD
home pepcid reduced to 10 mg daily d/t Cr clearance
DVT Px: SQH
Full code
IP MS
[2024-01-04] MEDS: LASIX 60 MG IV (17:19)
[2024-01-04 18:28] VITALS: BP 174/90
[2024-01-04 18:52] LABS: Glucose - Point of Care 300 mg/dl (70-99)
[2024-01-04] MEDS: NOVOLOG FLEXPEN-MODERATE RESISTANCE 7 UNITS SC (20:18)
[2024-01-04] MEDS: HEPARIN 5000 UNITS SC (20:32)
[2024-01-04] MEDS: COREG 12.5 MG PO (20:32)
[2024-01-04] MEDS: SODIUM BICARBONATE 650 MG PO (20:33)
[2024-01-04] MEDS: XANAX 1 MG PO (20:33)
[2024-01-04] MEDS: PROGRAF 1 MG PO (20:33)
[2024-01-04] MEDS: NEURONTIN 100 MG PO (22:23)
[2024-01-04 22:38] LABS: Glucose - Point of Care 286 mg/dl (70-99)
[2024-01-04 23:21] VITALS: BP 148/88
[2024-01-05 03:25] VITALS: BP 139/77
[2024-01-05 03:53] LABS: Glucose - Point of Care 205 mg/dl (70-99)
[2024-01-05 06:00] VITALS: BMI 39.7
[2024-01-05] MEDS: SYNTHROID 88 MCG PO (06:28)
[2024-01-05 07:20] LABS: Hematocrit 31.7 % (39.0-52.0); Hemoglobin 11.3 g/dL (13.0-18.0); Mean Corp Hgb Conc. 35.6 g/dL (33.0-37.0); Mean Corpuscular Hgb 32.7 pg (27.0-31.0); Mean Corpuscular Volume 91.6 fL (80.0-94.0); Mean Platelet Volume 9.2 fL (7.4-10.4); Platelet Count 223 10^3/uL (130-400); Red Blood Cell Count 3.46 10^6/uL (4.70-6.10); Red Cell Dist. Width 14.4 % (11.5-14.5); White Blood Cell Count 7.4 10^3/uL (4.8-10.8)
[2024-01-05 07:23] LABS: Blood Urea Nitrogen 36 mg/dl (9-20); Calcium 8.9 mg/dl (8.4-10.2); Carbon Dioxide 22 mmol/L (22-30); Chloride 105 mmol/L (98-107); Estimated Creatinine Clearance 31 ml/min; Glucose 170 mg/dl (70-99); HDL Cholesterol 28 mg/dl; Potassium 4.1 mmol/L (3.5-5.1); Sodium 139 mmol/L (135-145); Total Cholesterol 233 mg/dl (50-199); eGFR 20.06
[2024-01-05 07:24] LABS: Triglyceride 470 mg/dl (10-149)
[2024-01-05 07:46] LABS: LDL Cholesterol, Direct 118 mg/dl
[2024-01-05 07:49] LABS: Glucose - Point of Care 195 mg/dl (70-99)
[2024-01-05 07:51] LABS: TSH 4.34 uIU/ml (0.47-4.68)
[2024-01-05 08:13] VITALS: BP 159/79
--- NOTE | 2024-01-05 08:47 | W.PN.HOSP.TC ---
Today's Communication/Plan
-
see A/P
Assessment / Plan
Assessment / Plan
HPI: 63 yo M PMH HTN, HLD, DM, Gout, Ascites, Esophagea, varices, SKELTON cirrhosis transplant in 2021 [facility] for HCC; sent in from PCP/ Card office for worsening swelling of extremities.
He also had weight gain 15 lb over the last 13-14 days.
He is here for progression of CKD 4/5.
HX Biopsy proven diabetic nephropathy
A/P:
# Volume overload with anasarca due to EDUARDO on CKD stage 4/5
# Acute on chronic Lower ext swelling
# h/o Diabetic Nephropathy with proteinuria
Recent BL LE US negative for DVT, Recent VQ scan low probability PE
Cont IV Lasix 80 daily, follow Wt and I/Os, daily BMP
Renal consult
Cont MISHA wrap compression
# intermittent chest pain
NEG Troponin
EKG unremarkable
# [facility] HTN
Cont PIECE DYEING MACHINE TENDER Amlodipine, Coreg with holding parameters
Holding PIECE DYEING MACHINE TENDER Spironolactone with EDUARDO/CKD
Renal CS as above
# IDDM
Recent A1c 6.6%
Continue decreased dose Insulin: Lantus 30 units daily
moderate ISS
# SKELTON cirrhosis s/p Liver Transplant 2021 [facility]
cont home tacrolimus, check level
# Gout
hold home allopurinol for now d/t EDUARDO as above
# HX Constipation
bowel regimen miralax senna docusate started
# HX GERD
home pepcid reduced to 10 mg daily d/t Cr clearance
DVT Px: SQH
Full code
Anticipated Discharge: > 48 hours
Subjective/Interval History
-
Date of Service: January 05, 2024
Objective Data
-
Labs:
Laboratory Results
01/05/24
06:19
WBC 7.4
Hgb 11.3 L
Hct 31.7 L
Plt Count 223 D
Sodium 139
Potassium 4.1
Chloride 105
Carbon Dioxide 22
BUN 36 H
Creatinine 3.3 H
Glucose 170 H
Calcium 8.9
Vital Signs:
Vital Signs
Temp Pulse Resp BP Pulse Ox
36.6 C 73 18 159/79 99
01/05/24 08:13 01/05/24 08:13 01/05/24 03:25 01/05/24 08:13 01/05/24 08:13
I&O
01/04/24 01/05/24 01/06/24
06:59 06:59 06:59
Intake Total 480 / 480
Output Total 275 / 275
Balance 205 / 205
Review of Systems
-
All other systems: Reviewed and negative
Physical Exam
-
General: Well Developed, Well Nourished, No Apparent Distress, Comfortable, Conversant and Morbidly Obese; Negative Respiratory Distress
HEENT: Normocephalic, Atraumatic, Nose Appears Normal and Ears Appear Normal; Negative Oxygen
Respiratory: Clear to Auscultation and Non Labored Respirations; Negative Accessory Resp Muscle Use
Cardiac: Regular Rhythm and S1/S2
GI: Soft, Nontender, Nondistended and Normal Bowel Sounds
Musculoskeletal: Edema, Right Lower Extrem and Edema, Left Lower Extrem
Skin: Warm and Dry
Neuro: Awake, Alert, Oriented and AO x 3
Psych: Calm and Intact Judgement/Insight
Data Reviewed
-
Labs: Labs Reviewed by me
[2024-01-05] MEDS: NOVOLOG FLEXPEN-MODERATE RESISTANCE 1 UNITS SC (09:51)
[2024-01-05] MEDS: ASPIR LOW (ENTERIC COATED) 81 MG PO (09:53)
[2024-01-05] MEDS: PROGRAF 1 MG PO ×2 (09:57→21:37)
[2024-01-05] MEDS: NEURONTIN 100 MG PO ×3 (09:58→21:37)
[2024-01-05] MEDS: CLARITIN 10 MG PO (09:59)
[2024-01-05] MEDS: PEPCID 20 MG PO (10:00)
[2024-01-05] MEDS: HEPARIN 5000 UNITS SC ×2 (10:01→21:38)
[2024-01-05] MEDS: SODIUM BICARBONATE 650 MG PO ×2 (10:01→21:37)
[2024-01-05] MEDS: XANAX 1 MG PO ×2 (10:03→21:38)
[2024-01-05] MEDS: ZETIA 10 MG PO (10:03)
[2024-01-05] MEDS: THERAGRAN 1 TABLET PO (10:03)
[2024-01-05] MEDS: LANTUS 0.3 UNITS SC (10:04)
[2024-01-05] MEDS: LASIX 80 MG IV ×2 (10:05→17:01)
[2024-01-05] MEDS: NORVASC 10 MG PO (10:07)
[2024-01-05] MEDS: COREG 12.5 MG PO ×2 (10:08→21:37)
[2024-01-05 11:30] VITALS: BP 153/95
[2024-01-05 11:37] LABS: Glucose - Point of Care 258 mg/dl (70-99)
--- NOTE | 2024-01-05 11:44 | W.PN.NEPH.PH ---
Today's Communication / Plan
-
Escalate diuresis to Lasix 80 mg IV twice daily
Assessment/Plan
-
Impression:
CKD4-baseline cr 3.2
Nephrotic range proteinuria(11grams/gm of cr) confirmed diabetic nephropathy on kidney biopsy May 2023
MOTTA
Lower ext swelling pitting edema, chronic and improved as per patient
intermittent chest pain
hypokalemia
Anemia
HTN
IDDM
SKELTON cirrhosis s/p Liver Transplant 2021 [facility]
Chr met acidosis on po bicarb
Gout
Constipation
GERD
Plan:
Patient with obvious hypervolemia.
increase Lasix 80 mg IV twice a day
Worsening edema, likely a function of advancing diabetic nephropathy
He is aware of future progression of CKD and likely need of HD, possibly even this admission iff IV diuresis is ineffective and or kidney function worsens
current symptoms likely not from uremia, BUN only 35
Daily weights. Accurate I's and O's
continue Immunosuppression meds for liver transplant
continue po bicarb for met acidosis
BP stable-continue anti HTN meds
monitor h/h, we'll provide CLIFFORD if hemoglobin drops below 10
-
-
Date of Service: January 05, 2024
CC / HPI / ROS
-
Chief Complaint:
Chronic kidney disease stage IV
History of Present Illness:
Creatinine unchanged at 3.3
Hemodynamically stable
Weights down with IV diuresis
Review of Systems:
Nonoliguric
Weights down
Continued edema without resting shortness of breath or chest
Labs
-
Labs:
WBC 7.4 10^3/uL (4.8-10.8) 01/05/24 06:19
RBC 3.46 10^6/uL (4.70-6.10) L 01/05/24 06:19
Hgb 11.3 g/dL (13.0-18.0) L 01/05/24 06:19
Hct 31.7 % (39.0-52.0) L 01/05/24 06:19
Plt Count 223 10^3/uL (130-400) D 01/05/24 06:19
Sodium 139 mmol/L (135-145) 01/05/24 06:19
Potassium 4.1 mmol/L (3.5-5.1) 01/05/24 06:19
Chloride 105 mmol/L (98-107) 01/05/24 06:19
Carbon Dioxide 22 mmol/L (22-30) 01/05/24 06:19
BUN 36 mg/dl (9-20) H 01/05/24 06:19
Creatinine 3.3 mg/dL (0.7-1.3) H 01/05/24 06:19
eGFR 20.06 01/05/24 06:19
Glucose 170 mg/dl (70-99) H 01/05/24 06:19
Calcium 8.9 mg/dl (8.4-10.2) 01/05/24 06:19
Tdw-B-Bgfckbfxgmx Pept 665 pg/ml 01/04/24 14:00
Albumin 3.3 g/dl (3.5-5.0) L 01/04/24 14:00
Physical Exam
-
Vital Signs:
Vital Signs
Temp Pulse Resp BP Pulse Ox
97.9 F 73 18 159/79 99
01/05/24 08:13 01/05/24 08:13 01/05/24 03:25 01/05/24 08:13 01/05/24 08:13
Cardiovascular:: Regular rate and rhythm
Respiratory:: Bilateral: CTA
Lung Excursion:: Normal
Abdomen:: Nontender
Bowel Sounds:: Normal
Extremity Edema:: +2: Bilateral:
Baptiste Catheter: No
[2024-01-05] MEDS: NOVOLOG FLEXPEN-MODERATE RESISTANCE 5 UNITS SC ×2 (12:35→16:59)
[2024-01-05 15:49] VITALS: BP 170/92
--- NOTE | 2024-01-05 16:05 | CM ---
Alert awake oriented patient who lives with his Anabel who lives in a 2 story home with 0 step to enter and 11 steps to bed and bathroom. He is independent in driving and in all activities of daily living.He was offered VN he declined need.
No VN hx / [facility] history
Pharmacy [facility] - [place], [place]
PCP DR English
PLAN Home Declined VN
[2024-01-05 16:39] LABS: Glucose - Point of Care 279 mg/dl (70-99)
[2024-01-05 19:15] VITALS: BP 165/85
[2024-01-05 21:36] LABS: Glucose - Point of Care 197 mg/dl (70-99)
[2024-01-05 23:06] VITALS: BP 167/86
[2024-01-06 03:05] VITALS: BP 141/79
[2024-01-06 05:45] LABS: Blood Urea Nitrogen 36 mg/dl (9-20); Calcium 8.4 mg/dl (8.4-10.2); Carbon Dioxide 24 mmol/L (22-30); Chloride 106 mmol/L (98-107); Estimated Creatinine Clearance 31 ml/min; Glucose 162 mg/dl (70-99); Potassium 3.8 mmol/L (3.5-5.1); Sodium 139 mmol/L (135-145); eGFR 20.06
[2024-01-06] MEDS: SYNTHROID 88 MCG PO (05:54)
[2024-01-06 06:00] VITALS: BMI 38.9
[2024-01-06 07:23] LABS: Glucose - Point of Care 165 mg/dl (70-99)
[2024-01-06 07:47] VITALS: BP 180/89
--- NOTE | 2024-01-06 07:59 | PN.CDI ---
CDI
- -
CDI:
Physician Documentation Request
Admit Date: 01/04/24 17:17
Dear Doctor Sp,
Please review the following and provide your response in the progress notes.
Clinical Indicators:
Documentation in the record on _01/04 PN_ includes the diagnosis of EDUARDO.
- 01/04 Nephrology 'CKD 4-baseline 3.2'
- 01/04 PN 'Volume overload with anasarca due to EDUARDO on CKD stage 4/5'
Laboratory Tests
01/04/24 01/05/24 01/06/24
14:00 06:19 05:11
Creatinine 3.3 H 3.3 H 3.3 H
eGFR 20.06 20.06 20.06
Please clarify in the Progress Notes which of the following most accurately represents the patient's renal status:
CKD 4/5, EDUARDO ruled out
Other (please specify)
Criteria for EDUARDO*
1 Increase in serum creatinine by > or = to 0.3 mg/dL (> or = to 26.5 micromol/L) within 48 hours, OR
2 Increase in serum creatinine to > or = to 1.5 times baseline, which is known or presumed to have occurred within 7 days, OR
3 Urine volume < 0.5 nL/kg/hour for six hours
Stages of Chronic Kidney Disease*
Level Description GFR
G1 Normal or High >90
G2 Mildly decreased 60-89
G3a Mildly to moderately decreased 45-59
G3b Moderately to severely decreased 30-44
G4 Severely decreased 15-29
G5 Kidney failure <15
Use of terms such as suspected, likely, concern for, or probable (associated with a specific diagnosis that is being evaluated, monitored, or treated as if it exists) are acceptable and can be coded in the inpatient setting, when documented at the
time of discharge.
Thank you,
Juan Francisco Nova RN
CDI Specialist
Please use your independent medical judgment in providing your response.
*Source: Kidney Disease: Improving Global Outcomes (KDIGO) 2012
[2024-01-06] MEDS: COREG 12.5 MG PO ×2 (08:03→20:38)
[2024-01-06] MEDS: NEURONTIN 100 MG PO ×3 (08:03→21:37)
[2024-01-06] MEDS: ASPIR LOW (ENTERIC COATED) 81 MG PO (08:03)
[2024-01-06] MEDS: NORVASC 10 MG PO (08:03)
[2024-01-06] MEDS: THERAGRAN 1 TABLET PO (08:03)
[2024-01-06] MEDS: XANAX 1 MG PO ×2 (08:03→20:39)
[2024-01-06] MEDS: ZETIA 10 MG PO (08:03)
[2024-01-06] MEDS: SODIUM BICARBONATE 650 MG PO ×2 (08:03→20:39)
[2024-01-06] MEDS: CLARITIN 10 MG PO (08:04)
[2024-01-06] MEDS: HEPARIN 5000 UNITS SC ×2 (08:04→20:39)
[2024-01-06] MEDS: PEPCID 20 MG PO (08:04)
[2024-01-06] MEDS: PROGRAF 1 MG PO ×2 (08:04→20:39)
[2024-01-06] MEDS: LASIX 80 MG IV ×2 (08:06→17:33)
--- NOTE | 2024-01-06 08:07 | PN.CDI ---
CDI
- -
CDI:
Physician Documentation Request
Admit Date: 01/04/24 17:17
Dear Doctor Sp,
Please review the following and provide your response in the progress notes.
Clinical Indicators:
- per 01/03 H&P pmh liver transplant 2021
- Home medication tacrolimus
- 01/04 Nephrology 'continue Immunosuppression meds for liver transplant'
Please clarify a diagnosis associated with use of immunosuppression meds:
Immunosuppressed
Not immunosuppressed
Other (please specify)
Use of terms such as suspected, likely, concern for, or probable (associated with a specific diagnosis that is being evaluated, monitored, or treated as if it exists) are acceptable and can be coded in the inpatient setting, when documented at the
time of discharge.
Thank you,
Juan Francisco Nova RN
CDI Specialist
Please use your independent medical judgment in providing your response.
[2024-01-06] MEDS: LANTUS 0.3 UNITS SC (08:08)
[2024-01-06] MEDS: NOVOLOG FLEXPEN-MODERATE RESISTANCE 1 UNITS SC (08:10)
--- NOTE | 2024-01-06 09:40 | W.PN.NEPH.PH ---
Today's Communication / Plan
-
diurese
Assessment/Plan
-
Impression:
CKD4-baseline cr 3.2
Nephrotic range proteinuria(11grams/gm of cr) confirmed diabetic nephropathy on kidney biopsy May 2023
MOTTA
Lower ext swelling pitting edema, chronic and improved as per patient
intermittent chest pain
hypokalemia
Anemia
HTN
DM2
SKELTON cirrhosis s/p Liver Transplant 2021 [facility]
Chr met acidosis on po bicarb
Gout
Constipation
GERD
Plan:
continue lasix IV 80mg BID
follow BMP
needs another 10# off
continue Immunosuppression meds for liver transplant
continue po bicarb for met acidosis
discussed dietary restrictions with patient at length
-
-
Date of Service: January 06, 2024
CC / HPI / ROS
-
Chief Complaint:
Chronic kidney disease stage IV
History of Present Illness:
Creatinine unchanged at 3.3
Hemodynamically stable
Weights down with IV diuresis for hypervolemia
Review of Systems:
Nonoliguric
Weights down
Continued edema
Labs
-
Labs:
WBC 7.4 10^3/uL (4.8-10.8) 01/05/24 06:19
RBC 3.46 10^6/uL (4.70-6.10) L 01/05/24 06:19
Hgb 11.3 g/dL (13.0-18.0) L 01/05/24 06:19
Hct 31.7 % (39.0-52.0) L 01/05/24 06:19
Plt Count 223 10^3/uL (130-400) D 01/05/24 06:19
Sodium 139 mmol/L (135-145) 01/06/24 05:11
Potassium 3.8 mmol/L (3.5-5.1) 01/06/24 05:11
Chloride 106 mmol/L (98-107) 01/06/24 05:11
Carbon Dioxide 24 mmol/L (22-30) 01/06/24 05:11
BUN 36 mg/dl (9-20) H 01/06/24 05:11
Creatinine 3.3 mg/dL (0.7-1.3) H 01/06/24 05:11
eGFR 20.06 01/06/24 05:11
Glucose 162 mg/dl (70-99) H 01/06/24 05:11
Calcium 8.4 mg/dl (8.4-10.2) 01/06/24 05:11
Igk-J-Biidefeizun Pept 665 pg/ml 01/04/24 14:00
Albumin 3.3 g/dl (3.5-5.0) L 01/04/24 14:00
Physical Exam
-
Vital Signs:
Vital Signs
Temp Pulse Resp BP Pulse Ox
98.2 F 77 16 180/89 98
01/06/24 07:47 01/06/24 07:47 01/06/24 07:47 01/06/24 07:47 01/06/24 07:47
Cardiovascular:: Regular rate and rhythm
Respiratory:: Bilateral: CTA
Lung Excursion:: Normal
Abdomen:: Nontender and Soft
Bowel Sounds:: Normal
Extremity Edema:: +3: Bilateral:
--- NOTE | 2024-01-06 10:01 | W.PN.HOSP.TC ---
Addendum entered and electronically signed by Jasmin Snowden MD 01/06/24 13:57:
# CKD 4/5, EDUARDO ruled out
# Immunosuppressed state
Original Note:
Today's Communication/Plan
-
see A/P
Assessment / Plan
Assessment / Plan
HPI: 63 yo M PMH HTN, HLD, DM, Gout, Ascites, Esophagea, varices, SKELTON cirrhosis transplant in 2021 [facility] for HCC; sent in from PCP/ Card office for worsening swelling of extremities.
He also had weight gain 15 lb over the last 13-14 days.
He is here for progression of CKD 4/5.
HX Biopsy proven diabetic nephropathy
A/P:
# Volume overload with anasarca due to EDUARDO on CKD stage 4/5
# Acute on chronic Lower ext swelling
# h/o Diabetic Nephropathy with proteinuria
Recent BL LE US negative for DVT, Recent VQ scan low probability PE
Cont IV Lasix now 80 mg BID, follow Wt and I/Os, daily BMP
Renal on board
Cont MISHA wrap compression
# intermittent chest pain
NEG Troponin
EKG unremarkable
# [facility] HTN
Cont MAILING MACHINE OPERATOR Amlodipine, Coreg with holding parameters
IV hydralazine PRN for SBP > 160
Holding MAILING MACHINE OPERATOR Spironolactone with EDUARDO/CKD
Renal on board
# IDDM
Recent A1c 6.6%
Continue decreased dose Insulin: Lantus 30 units daily
moderate ISS
# SKELTON cirrhosis s/p Liver Transplant 2021 [facility]
cont home tacrolimus, check level
# Gout
hold home allopurinol for now d/t EDUARDO as above
# HX Constipation
bowel regimen miralax senna docusate started
# HX GERD
home pepcid reduced to 10 mg daily d/t Cr clearance
DVT Px: SQH
Full code
Anticipated Discharge: > 48 hours
Subjective/Interval History
-
Date of Service: January 06, 2024
Objective Data
-
Labs:
Laboratory Results
01/06/24
05:11
Sodium 139
Potassium 3.8
Chloride 106
Carbon Dioxide 24
BUN 36 H
Creatinine 3.3 H
Glucose 162 H
Calcium 8.4
Vital Signs:
Vital Signs
Temp Pulse Resp BP Pulse Ox
36.8 C 77 16 180/89 98
01/06/24 07:47 01/06/24 07:47 01/06/24 07:47 01/06/24 07:47 01/06/24 07:47
I&O
01/05/24 01/06/24 01/07/24
06:59 06:59 06:59
Intake Total 1919 / 1919
Output Total 275 / 275
Balance 1645 / 1645
Review of Systems
-
All other systems: Reviewed and negative
Physical Exam
-
General: Well Developed, Well Nourished, No Apparent Distress, Comfortable, Conversant and Morbidly Obese; Negative Respiratory Distress
HEENT: Normocephalic, Atraumatic, Nose Appears Normal and Ears Appear Normal; Negative Oxygen
Respiratory: Clear to Auscultation and Non Labored Respirations; Negative Accessory Resp Muscle Use
Cardiac: Regular Rhythm and S1/S2
GI: Soft, Nontender, Nondistended and Normal Bowel Sounds
Musculoskeletal: Edema, Right Lower Extrem (improved) and Edema, Left Lower Extrem (improved)
Skin: Warm and Dry
Neuro: Awake, Alert, Oriented and AO x 3
Psych: Calm and Intact Judgement/Insight
Data Reviewed
-
Labs: Labs Reviewed by me
[2024-01-06 11:15] LABS: Glucose - Point of Care 249 mg/dl (70-99)
[2024-01-06 11:26] VITALS: BP 184/93
[2024-01-06] MEDS: APRESOLINE 10 MG IV ×2 (11:33→17:15)
[2024-01-06] MEDS: NOVOLOG FLEXPEN-MODERATE RESISTANCE 3 UNITS SC ×2 (11:57→17:33)
[2024-01-06 15:39] VITALS: BP 170/94
[2024-01-06 16:48] LABS: Glucose - Point of Care 244 mg/dl (70-99)
--- NOTE | 2024-01-06 17:43 | CM ---
Pt remains on IV Lasix . Pt said his swelling has decreased.
Pt said will drive him home at dc.
Offered VN again He declined need for VN at dc.
PLAN Home no needs
[2024-01-06 19:45] VITALS: BP 147/87
[2024-01-06] MEDS: TYLENOL 650 MG PO (20:46)
[2024-01-06 21:22] LABS: Glucose - Point of Care 253 mg/dl (70-99)
[2024-01-06 23:37] VITALS: BP 117/65
[2024-01-07] MEDS: SYNTHROID 88 MCG PO (05:00)
[2024-01-07 05:04] VITALS: BP 142/80
[2024-01-07 06:00] VITALS: BMI 38.6
[2024-01-07 06:14] LABS: Blood Urea Nitrogen 36 mg/dl (9-20); Carbon Dioxide 24 mmol/L (22-30); Chloride 103 mmol/L (98-107); Estimated Creatinine Clearance 31 ml/min; Glucose 185 mg/dl (70-99); Magnesium 1.6 mg/dl (1.6-2.3); Potassium 3.9 mmol/L (3.5-5.1); Sodium 139 mmol/L (135-145); eGFR 20.06
[2024-01-07 07:55] LABS: Glucose - Point of Care 197 mg/dl (70-99)
[2024-01-07 08:01] VITALS: BP 163/85
[2024-01-07] MEDS: MAGNESIUM SULFATE 50 IV (08:49)
[2024-01-07] MEDS: LANTUS 0.3 UNITS SC (08:50)
[2024-01-07] MEDS: NOVOLOG FLEXPEN-MODERATE RESISTANCE 1 UNITS SC (08:50)
[2024-01-07] MEDS: THERAGRAN 1 TABLET PO (08:51)
[2024-01-07] MEDS: PROGRAF 1 MG PO (08:51)
[2024-01-07] MEDS: NEURONTIN 100 MG PO (08:51)
[2024-01-07] MEDS: SODIUM BICARBONATE 650 MG PO (08:51)
[2024-01-07] MEDS: ASPIR LOW (ENTERIC COATED) 81 MG PO (08:51)
[2024-01-07] MEDS: NORVASC 10 MG PO (08:51)
[2024-01-07] MEDS: CLARITIN 10 MG PO (08:51)
[2024-01-07] MEDS: COREG 12.5 MG PO (08:51)
[2024-01-07] MEDS: PEPCID 20 MG PO (08:51)
[2024-01-07] MEDS: ZETIA 10 MG PO (08:51)
[2024-01-07] MEDS: HEPARIN 5000 UNITS SC (08:52)
[2024-01-07] MEDS: XANAX 1 MG PO (08:52)
[2024-01-07] MEDS: LASIX 80 MG IV (08:56)
[2024-01-07] MEDS: APRESOLINE 10 MG IV (08:57)
--- NOTE | 2024-01-07 09:59 | W.PN.HOSP.TC ---
Addendum entered and electronically signed by Jasmin Snowden MD 01/07/24 15:00:
total DC time 36 min
Original Note:
Today's Communication/Plan
-
see A/P
Assessment / Plan
Assessment / Plan
HPI: 63 yo M PMH HTN, HLD, DM, Gout, Ascites, Esophagea, varices, SKELTON cirrhosis transplant in 2021 [facility] for HCC; sent in from PCP/ Card office for worsening swelling of extremities.
He also had weight gain 15 lb over the last 13-14 days.
He is here for progression of CKD 4/5.
HX Biopsy proven diabetic nephropathy
A/P:
# Volume overload with anasarca due CKD stage 4/5
# Acute on chronic Lower ext swelling
# h/o Diabetic Nephropathy with proteinuria
Recent BL LE US negative for DVT, Recent VQ scan low probability PE
Cont IV Lasix 80 mg BID, follow Wt and I/Os, daily BMP
Renal on board
Cont MISHA wrap compression
# intermittent chest pain
NEG Troponin
EKG unremarkable
# [facility] HTN
Cont NURSE PRACTITIONER PHYSICIANS ASSISTANT Amlodipine, Coreg with holding parameters
IV hydralazine PRN for SBP > 160
Cont NURSE PRACTITIONER PHYSICIANS ASSISTANT Spironolactone at 25 mg BID following discharge (NURSE PRACTITIONER PHYSICIANS ASSISTANT 50 BID)
Renal on board
# IDDM
Recent A1c 6.6%
Continue decreased dose Insulin: Adjust Lantus to 40 units daily (NURSE PRACTITIONER PHYSICIANS ASSISTANT 60 mg daily), Add Aspart 10 units AC
Cont moderate ISS
# SKELTON cirrhosis s/p Liver Transplant 2021 [facility]
cont home tacrolimus, tacrolimus level at 10
# Gout
hold home allopurinol for now d/t EDUARDO as above
# HX Constipation
bowel regimen miralax senna docusate started
# HX GERD
home pepcid reduced to 10 mg daily d/t Cr clearance
DVT Px: SQH
Full code
Dispo: outpt therapy per PT
DW Renal
Anticipated Discharge: Today
Subjective/Interval History
-
Date of Service: January 07, 2024
Objective Data
-
Labs:
Laboratory Results
01/07/24
05:21
Sodium 139
Potassium 3.9
Chloride 103
Carbon Dioxide 24
BUN 36 H
Creatinine 3.3 H
Glucose 185 H
Calcium 9.0
Vital Signs:
Vital Signs
Temp Pulse Resp BP Pulse Ox
36.6 C 80 16 163/85 96
01/07/24 08:01 01/07/24 08:01 01/07/24 08:01 01/07/24 08:01 01/07/24 08:01
I&O
01/06/24 01/07/24 01/08/24
06:59 06:59 06:59
Intake Total 1920 / 1920 1560 / 1560
Output Total 275 / 275
Balance 1645 / 1645 1560 / 1560
Review of Systems
-
All other systems: Reviewed and negative
Physical Exam
-
General: Well Developed, Well Nourished, No Apparent Distress, Comfortable, Conversant and Obese; Negative Respiratory Distress
HEENT: Normocephalic, Atraumatic, Nose Appears Normal and Ears Appear Normal; Negative Oxygen
Respiratory: Clear to Auscultation and Non Labored Respirations; Negative Accessory Resp Muscle Use
Cardiac: Regular Rhythm and S1/S2
GI: Soft, Nontender, Nondistended and Normal Bowel Sounds
Musculoskeletal: Edema, Right Lower Extrem (continue to improve) and Edema, Left Lower Extrem (continue to improve)
Skin: Warm and Dry
Neuro: Awake, Alert, Oriented and AO x 3
Psych: Calm and Intact Judgement/Insight
Data Reviewed
-
Labs: Labs Reviewed by me
--- NOTE | 2024-01-07 10:45 | W.PN.NEPH.PH ---
Today's Communication / Plan
-
po lasix
Assessment/Plan
-
Impression:
CKD4-baseline cr 3.2
Nephrotic range proteinuria(11grams/gm of cr) confirmed diabetic nephropathy on kidney biopsy May 2023
MOTTA
Lower ext swelling pitting edema, chronic and improved as per patient
intermittent chest pain
hypokalemia
Anemia
HTN
DM2
SKELTON cirrhosis s/p Liver Transplant 2021 [facility]
Chr met acidosis on po bicarb
Gout
Constipation
GERD
Plan:
convert to po lasix 80mg BID
follow BMP
needs another 10# off
continue Immunosuppression meds for liver transplant
continue po bicarb for met acidosis
restart lower spironolactone 25mg BID for now
dc planning
-
-
Date of Service: January 07, 2024
CC / HPI / ROS
-
Chief Complaint:
Chronic kidney disease stage IV
History of Present Illness:
Creatinine unchanged at 3.3
Hemodynamically stable
Weights down with IV diuresis for hypervolemia
K stable
Review of Systems:
Nonoliguric
Weights down
Continued edema
Labs
-
Labs:
WBC 7.4 10^3/uL (4.8-10.8) 01/05/24 06:19
RBC 3.46 10^6/uL (4.70-6.10) L 01/05/24 06:19
Hgb 11.3 g/dL (13.0-18.0) L 01/05/24 06:19
Hct 31.7 % (39.0-52.0) L 01/05/24 06:19
Plt Count 223 10^3/uL (130-400) D 01/05/24 06:19
Sodium 139 mmol/L (135-145) 01/07/24 05:21
Potassium 3.9 mmol/L (3.5-5.1) 01/07/24 05:21
Chloride 103 mmol/L (98-107) 01/07/24 05:21
Carbon Dioxide 24 mmol/L (22-30) 01/07/24 05:21
BUN 36 mg/dl (9-20) H 01/07/24 05:21
Creatinine 3.3 mg/dL (0.7-1.3) H 01/07/24 05:21
eGFR 20.06 01/07/24 05:21
Glucose 185 mg/dl (70-99) H 01/07/24 05:21
Calcium 9.0 mg/dl (8.4-10.2) 01/07/24 05:21
Xga-G-Dgdqmhyiwcy Pept 665 pg/ml 01/04/24 14:00
Albumin 3.3 g/dl (3.5-5.0) L 01/04/24 14:00
Physical Exam
-
Vital Signs:
Vital Signs
Temp Pulse Resp BP Pulse Ox
98 F 80 16 163/85 96
01/07/24 08:01 01/07/24 08:01 01/07/24 08:01 01/07/24 08:01 01/07/24 08:01
Cardiovascular:: Regular rate and rhythm
Respiratory:: Bilateral: Coarse
Lung Excursion:: Normal
Abdomen:: Nontender and Soft
Bowel Sounds:: Normal
Extremity Edema:: +2: Bilateral:
[2024-01-07] MEDS: LANTUS 0.1 UNITS SC (11:00)
[2024-01-07 11:30] LABS: Glucose - Point of Care 292 mg/dl (70-99)
[2024-01-07 11:36] VITALS: BP 164/79
--- NOTE | 2024-01-07 14:42 | W.DCSUMMARY ---
Discharge Summary
Discharge Data
Date of Admission: 01/04/24
Date of Discharge: 01/07/24
-
Pending Results: No
Hospital Course
Principal Diagnosis:
Acute on chronic lower extremities swelling due to volume overload with anasarca, secondary to chronic kidney disease stage 4/5
Chronic Diagnoses:�
History of diabetic nephropathy with proteinuria
Essential hypertension
Insulin-dependent diabetes
SKELTON cirrhosis s/p Liver Transplant 2021 at [place]
Gout
History of GERD
Consultations:�
Nephrology
Procedures:�
None
Clinical course:�
This is a 63-year-old male, with past medical history as stated above, who presented with worsening lower extremity edema, associated with weight gain of 15 pounds.
Problem 1:
Acute on chronic lower extremities swelling due to volume overload with anasarca, secondary to chronic kidney disease stage 4/5.
His recent lower extremity ultrasound was negative for deep vein thrombosis.
His recent VQ scan showed low probability of PE.
His was treated with IV Lasix 80 mg twice daily while in the hospital, and he can continue with oral Lasix 80 mg twice daily following discharge.
He can check repeat BMP outpatient with result to his PCP/managing principal.
He can continue Jak wrap compression to help with his leg swelling.
As for the rest of his medical problems, they were stable during his hospital stay.
Discharge Plan
-
Patient Disposition: Home with Home Care
Discharge Diagnosis/Procedures: Volume overload with anasarca due chronic kidney disease stage 4/5 with acute on chronic lower extremity swelling
Condition: Fair
Diet: As tolerated
Activity: As tolerated
Driving Restrictions: As prior to admission
Blood Work: BMP in 3 days with result to your PCP/managing principal
Referrals:
Jaya English MD [Family Provider] - in less than 1 week
Additional Discharge Medication Instructions: Continue Lasix at 80 mg twice daily (from 60 mg twice daily)
Continue Spironolactone at 25 mg twice daily (from 50 mg twice daily)
Prescriptions:
New
furosemide [Lasix] 80 mg tablet
80 mg PO BID Qty: 60 0RF
spironolactone [Aldactone] 25 mg tablet
25 mg PO BID Qty: 60 0RF
Continued
carvedilol 25 mg Tablet
12.5 mg PO BID
alprazolam 1 mg Tablet
1 mg PO BID
fexofenadine 180 mg Tablet
180 mg PO DAILY
aspirin 81 mg Tablet,Delayed Release (Dr/Ec)
81 mg PO DAILY
amlodipine 10 mg Tablet
10 mg PO DAILY
allopurinol 300 mg Tablet
150 mg PO DAILY
gabapentin 100 mg Capsule
100 mg PO TID
tacrolimus 1 mg Capsule
1 mg PO Q12H
binrxeiapqep-ysrltwrd-zbffog Tablet
1 tab PO DAILY
ezetimibe 10 mg Tablet
10 mg PO DAILY
levothyroxine [Synthroid] 88 mcg Tablet
88 mcg PO DAILY
sodium bicarbonate 650 mg Tablet
650 mg PO BID
insulin aspart U-100 [Novolog PenFill U-100 Insulin] 100 unit/mL Cartridge
22 sliding scale dose SC AC
acetaminophen [Tylenol Extra Strength] 500 mg Tablet
1,000 mg PO Q6HPRN PRN (Reason: mild pain)
fluticasone propionate 50 mcg/actuation [place],Suspension
2 spray INTRANASAL DAILYPRN PRN (Reason: congestion)
Clear Eyes Natural Tears 0.5-0.6 % Drops
1 drp BOTH EYES TIDPRN PRN (Reason: dry eyes)
insulin degludec [Tresiba FlexTouch U-100] 100 unit/mL (3 mL) Insulin Pen
60 unit SC DAILY
famotidine 20 mg tablet
20 mg PO DAILY
Discontinued
furosemide 20 mg Tablet
60 mg PO BID
spironolactone 50 mg Tablet
50 mg PO BID
Discharge Orders:
Discharge Patient (As Directed); Ordered 01/07/24
Ordered By: Jasmin Snowden
Discharge Date and Time
Discharge Date/Time: 01/07/24 12:39
Print Language: CHINESE
--- NOTE | 2024-01-07 16:53 | CM ---
Met with patient who was preparing for discharge.
The patient says he feels ready for discharge home today.
He says he uses a Jhonatan 3 to monitor his blood sugar levels at home.
The patient plans on driving himself home today.
No CM d/c needs identified.
Plan home today.
== END 2024-01-07 12:39 | disposition home or self-care (01) | DRG 699 ==
LOC: 3 WEST ACU 17:17
PROVIDERS: Emergency Medicine; ADMITTING PHYSICIAN Internal Medicine; ATTENDING PHYSICIAN Internal Medicine; CONSULT PHYSICIAN Specialist; EMERGENCY PHYSICIAN Emergency Medicine; FAMILY PHYSICIAN Family Medicine
DX: E11.22 Type 2 diabetes mellitus with diabetic chronic kidney disease (principal); D84.821 Immunodeficiency due to drugs; E87.20 Acidosis, unspecified; I13.0 Hypertensive heart and chronic kidney disease with heart failure and stage 1 through stage 4 chronic kidney disease, or unspecified chronic kidney disease; Z94.4 Liver transplant status; N18.4 Chronic kidney disease, stage 4 (severe); Z87.891 Personal history of nicotine dependence; E87.6 Hypokalemia; K75.81 Nonalcoholic steatohepatitis (NASH); K74.60 Unspecified cirrhosis of liver; Z79.60 Long term (current) use of unspecified immunomodulators and immunosuppressants; M10.9 Gout, unspecified; I50.9 Heart failure, unspecified; M79.89 Other specified soft tissue disorders; E87.70 Fluid overload, unspecified
CPT/HCPCS: 71046; 80048; 80053; 80061; 80197; 82962; 83721; 83735; 83880; 84443; 84484; 85025; 85027; 93005; 96374; 99285

== ENCOUNTER 2024-05-17 13:21 | Inpatient (IN) | payer BC, SELFPAY ==
[2024-05-17] VITALS (12 sets, daily range): BP systolic 83–168; BP diastolic 63–116
--- NOTE | 2024-05-17 09:10 | ED.GENMED ---
History of Present Illness
General
Chief Complaint: Swelling
Time Seen by Provider: 05/17/24 08:41
History of Present Illness
History of Present Illness:
63-year-old male with history of end-stage renal disease and high blood pressure presenting to the emergency department for concern of fluid retention. Notes that for the past several weeks he has had increased swelling to his legs, abdomen. Also
notes dyspnea. Feels like his right lower extremity is more swollen than his left. He follows with nephrology, Dr. Gomez, who told him to come to the hospital for admission to start dialysis. Patient does not have a graft, notes that he has an
appointment coming up with vascular to start the workup. Denies chest pain. Denies fever or cough. Reports compliance with his medications. Denies additional acute medical complaints
Past History
Past History
ED Past Medical History: Cancer (Hepatocellular carcinoma), HTN, Hypercholesterolemia, IDDM and Psychiatric (Anxiety)
ED Past Surgical History: Appendectomy, Orthopedic, Tonsilectomy and Other (Liver transplant 2021, Lap-Band surgery 2010)
Social History
Tobacco: Former smoker
Alcohol: None
Personal:
Living: with family
Phy Exam
Physical Exam
Physical Exam:
General: Well-appearing, no clinical signs of dehydration, nontoxic and in no acute distress
HEENT: protecting airway
Neck: appears supple
CV: Normal heart rate, regular rhythm
Resp: No accessory muscle use, no increased work of breathing, lungs clear to auscultation bilaterally
Abd: Soft and non-distended, no tenderness to palpation
Extremities: No deformities, moderate swelling bilaterally, right greater than left. No erythema or warmth.
Neuro: alert, no focal neurologic deficit
: deferred
Rectal: deferred
Psych: Normal affect
Skin: Intact
Scores
Heart Failure Risk
Heart Failure Risk Score: Not Applicable
Course
Orders/Labs/Results
Orders:
Orders
05/17/24
Electrocardiogram (*1) Stat
Reason for Study: Chest Pain
05/17/24 09:00
Legs, Right US [US Periph Venous LOWER Ext RT] Urgent
Comment:
Reason For Exam: swelling
05/17/24 09:01
CR Chest - 2 Views Urgent
Comment:
Reason For Exam: SOB
05/17/24 09:19
Electrocardiogram (*1) Urgent
Reason for Study: Chest Pain
EKG- Treatment ONCE
05/17/24 09:35
Complete Blood Count/With Diff Urgent
Comprehensive Metabolic Panel Urgent
NT-proBNP Urgent
05/17/24 12:21
Consult Interventional Radiology [IRAD CONSULT] Routine
Consulting Provider: Tam Sinha
Was physician already notified: Yes
Reason for Consult/Procedure: Permacath placement
Acknowledgement that appropriate orders are entered: Yes
05/17/24 12:36
Furosemide [Lasix] 160 mg IV NOW STA
05/17/24 12:37
Hemodialysis treatment As Directed
Treatment date:: 05/18/24
Treatment type: Hemodialysis
Ultrafiltration (kg): 2-3
Treatment time (duration): 2 hours 30 minutes
Use dialysis access:: Tunneled Cath
Dialyzer:: Optiflux 160
Blood flow rate minimum: 250
Blood flow rate maximum: 300
Dialysis flow rate: Other
Dialysis flow rate other:: 500
Dialysate temperature: 37 degrees Celsius
Sodium (Na): 135
Potassium (K): 2
Calcium (Ca): 2.5
Bicarbonate (HCO3): 35
05/17/24 12:43
Admit/Transfer Patient As Directed
Co-Sign Provider:
Level of Care: Inpatient admission
Assign to:: Telemetry
Physician / Group: jes/hospitalist
Diagnosis: anasarca/new onset HD
Reason for Telemetry: Other
Other Reason for Telemetry: BP/new onset of HD/Electrolyte abnormality expected
Date to Stop Telemetry: 05/19/24
Time to Stop Telemetry: 11:00
Reason for Hospitalization: anasarca/new onset HD
Expected length of stay greater than two midnights?: Yes
ELOS- Estimated Length of Stay in days: 3
I certify the patient meets the requirements for IP care: Yes
PRN Pain Medication Management As Directed
May give lesser potent ordered pain med per pt: Yes
preference::
Protocol:: Medication orders for pain may be administered in a
manner that supports deferring to patient preference
when the pt is:
- Requesting an ordered lesser potent pain medication.
Least to most potent pain medications are defined
as: acetaminophen < NSAID < tramadol < opioids
(morphine, oxycodone, hydromorphone).
- Requesting a lesser dose of the same medication IF
ORDERED.
- Requesting a less intrusive route of administration
if both routes are prescribed by the provider (PO <
IV).
05/17/24 12:47
Code Status As Directed
Resuscitation Status: Full Code
05/17/24 12:50
cycloSPORINE [SandIMMUNE] 100 mg PO NOW STA
05/18/24 06:00
Iron IN AM
Total Iron Binding IN AM
05/18/24 08:00
Epoetin Leroy-Epbx [Retacrit] 10,000 units IV HD-ONCE ONE
Mannitol 25% 12.5 grams IV HD-Q1HPRN PRN
05/19/24 11:00
DC Protocol for Telemetry ONCE
Abnormal Lab Results
05/17/24
09:35
RBC 2.62 L 10^6/uL
(4.70-6.10)
Hgb 8.5 L g/dL
(13.0-18.0)
Hct 24.4 L %
(39.0-52.0)
MCH 32.4 H pg
(27.0-31.0)
Abs Immat Gran (auto) 0.3 H 10^3/uL
(0-0.05)
Absolute Neuts (auto) 7.3 H 10^3/uL
(1.4-6.5)
Absolute Monos (auto) 0.7 H 10^3/uL
(0.1-0.6)
Immature Gran % 3.1 H %
(0-0.5)
Lymphocytes % 13.6 L %
(20.5-51.1)
Potassium 5.3 H mmol/L
(3.5-5.1)
Carbon Dioxide 19 L mmol/L
(22-30)
BUN 93 H mg/dl
(9-20)
Creatinine 7.2 H* mg/dL
(0.7-1.3)
Glucose 178 H mg/dl
(70-99)
05/17/24 09:35
05/17/24 09:35
Vital Signs
Initial and Last Documented VS:
Initial Vital Signs
Temp Pulse Resp BP Pulse Ox
97.8 F 84 16 168/78 96
05/17/24 08:35 05/17/24 08:35 05/17/24 08:35 05/17/24 08:35 05/17/24 08:35
Last Documented Vital Signs
Temp Pulse Resp BP Pulse Ox
98.0 F 83 16 145/71 97
05/17/24 14:20 05/17/24 14:20 05/17/24 14:20 05/17/24 14:20 05/17/24 14:20
MDM/Problems Addressed
MDM/Problems Addressed:
63-year-old male with history of chronic kidney disease and hypertension presenting for concern of volume overload state. Vital signs on arrival significant for hypertension.
On exam patient is resting comfortably, no acute distress or discomfort. He does have significant swelling to the lower extremities, without any signs of respiratory distress. Suspect chronic issue, known chronic kidney disease. Will obtain
laboratory analysis, chest x-ray imaging, EKG. Right lower extremity is more swollen than the left, so for this reason we will screen with ultrasound imaging to ensure no DVT. No infectious findings. Will discuss with nephrology
10:20 -Labs show significantly worsened renal disease. Chest x-ray without significant signs of pulmonary edema. Patient with anemia, suspect anemia from chronic kidney disease. No indication for transfusion. Nephrology to bedside. Plan for
admission for tunneled catheter and likely initiation of hemodialysis
*Critical Care Note
Total Time (30-74mins, 75-104mins- exclusive of procedures): Not Applicable
ED Attending Note
-
Portions of this chart may have been created with voice recognition software.� Occasional wrong word or��sound alike� substitutions may have occurred due to the inherent limitations of voice recognition software.
Discharge Plan
Departure
Patient Disposition: Admit
Date of Disposition: 05/17/24
Time of Disposition: 10:23
Presentation/result/management discussed w/ accepting MD/DO: Hospitalist
Condition: Fair
Discharge Problem:
Acute on chronic kidney failure, Volume overload
Interventions
Interventions:
*Risk Screen - Suicide Last Done: 05/17/24 08:35
*General Assessment Last Done: 05/17/24 08:52
*Neglect/Abuse Screening Last Done: 05/17/24 08:35
*ED- Fall Risk Assessment Last Done: 05/17/24 08:54
*ED COVID-19 Vaccine History Last Done: 05/17/24 08:54
ED- Cardiac Assessment Last Done: 05/17/24 08:55
ED- Pulmonary Assessment Last Done: 05/17/24 08:55
ED-Skin Assessment Last Done: 05/17/24 08:55
[2024-05-17 09:51] LABS: % Basophils 0.8 % (0-2); % Eosinophils 5.4 % (0-6); % Immature Granulocytes 3.1 % (0-0.5); % Lymphocytes 13.6 % (20.5-51.1); % Monocytes 6.9 % (1.7-9.3); % Neutrophils 70.2 % (42.2-75.2); Absolute Basophils 0.1 10^3/uL (0-0.2); Absolute Eosinophils 0.6 10^3/uL (0-0.7); Absolute Immature Granulocytes 0.3 10^3/uL (0-0.05); Absolute Lymphocytes 1.4 10^3/uL (1.2-3.4); Absolute Monocytes 0.7 10^3/uL (0.1-0.6); Absolute Neutrophils 7.3 10^3/uL (1.4-6.5); Hematocrit 24.4 % (39.0-52.0); Hemoglobin 8.5 g/dL (13.0-18.0); Mean Corp Hgb Conc. 34.8 g/dL (33.0-37.0); Mean Corpuscular Hgb 32.4 pg (27.0-31.0); Mean Corpuscular Volume 93.1 fL (80.0-94.0); Mean Platelet Volume 9.3 fL (7.4-10.4); Nucleated Red Blood Cells % 0 % (-); Platelet Count 186 10^3/uL (130-400); Red Blood Cell Count 2.62 10^6/uL (4.70-6.10); Red Cell Dist. Width 14.3 % (11.5-14.5); White Blood Cell Count 10.4 10^3/uL (4.8-10.8)
[2024-05-17 10:02] LABS: NT-proBNP 1640 pg/ml
[2024-05-17 10:05] LABS: ALT (SGPT) 15 U/L (0-50); AST (SGOT) 17 U/L (17-59); Albumin 4.1 g/dl (3.5-5.0); Alkaline Phosphatase 111 U/L (38-126); Blood Urea Nitrogen 93 mg/dl (9-20); Calcium 9.2 mg/dl (8.4-10.2); Carbon Dioxide 19 mmol/L (22-30); Chloride 100 mmol/L (98-107); Glucose 178 mg/dl (70-99); Potassium 5.3 mmol/L (3.5-5.1); Sodium 136 mmol/L (135-145); Total Bilirubin 0.5 mg/dl (0.2-1.3); Total Protein 6.7 g/dl (6.3-8.2); eGFR 7.87
--- NOTE | 2024-05-17 12:25 | W.CON.NEPH ---
Consultation
-
Date/Time Consultation Requested: 05/17/2024 at 9 AM
Date/Time Consultation Performed: 05/17/2024 at 10
Requesting Provider: Dr. Solorzano
Performing Provider: Dr. Sinha
Reason for Consultation: Progressive end-stage renal disease
Medical History
-
Chief Complaint: End-stage renal disease volume overload
History of Present Illness:
63M HTN CKD4 biopsy proven diabetic nephropathy follows Dr Gomez, , chr met acidosis on po bicarb therapy, IDDM , HLD/hypertriglyceridemia, RYAN cirrhosis s/p liver transplant 2021 [facility] The patient was just admitted to the hospital at the
end of November 2023 with congestive heart failure exacerbation at which point he was given diuresis and then discharged on 60 mg twice daily of Lasix. He had another admission December 2023 with CHF again. He is on high doses of torsemide and now
presents the hospital with volume overload unresponsive to current diuretics with a creatinine of 6 he was sent from our office for initiation of hemodialysis.
Past Medical History
CKD4
Diabetic nephropathy, biopsy-proven May 2023
Hyperlipidemia
History of gastric bypass with reversal At the time of liver transplant
Hypertension
Liver transplant-cirrhosis from [facility]
Complex left renal cyst
Osteopenia
Statin intolerance
Nephrotic range proteinuria
History of hepatocellular cancer prior liver transplant
Gout
Hypothyroidism
Obesity
Past Surgical History: Other ( appendectomy, left knee arthroscopic, lap band bariatric procedure 2010,LAFJI L4-L5 and S1, liver transplant April 2021, hepatic mass ablation, kidney biopsy May 2023)
Social History
former smoker, lives with and son, no alcohol
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
Tobacco: Former Smoker
Alcohol: None
Personal:
Living: With Family
Employment: Disabled
Family History
Father age of 64 with a heart failure, mother age of 84 with diabetes. Sister alive with ovarian cancer, another sister with type 2 diabetes and another sister with CHF
Allergies / Home Medications
Allergy/AdvReac Type Severity Reaction Status Date / Time
atorvastatin calcium Allergy Unknown Verified 05/17/24 08:37
[From Lipitor]
codeine Allergy Unknown Verified 05/17/24 08:37
lisinopril Allergy Unknown Verified 05/17/24 08:37
simvastatin [From Zocor] Allergy Unknown Verified 05/17/24 08:37
Eckpbht-CTB-UzS Reductase Allergy muscle Verified 05/17/24 08:37
Inhibitor cramps
[Beisudb-Yav-Jeu Reductase
Inhibitor]
�Medication �Instructions �Recorded �Confirmed �Type
allopurinol 300 mg tablet 150 mg PO DAILY gout 06/07/23 05/17/24 History
alprazolam 1 mg tablet 1 mg PO BIDPRN PRN anxiety 06/07/23 05/17/24 History
amlodipine 10 mg tablet 10 mg PO DAILY Blood Pressure 06/07/23 05/17/24 History
aspirin 81 mg tablet,delayed 81 mg PO DAILY Blood Clot 06/07/23 05/17/24 History
release Prevention/Tx
carvedilol 25 mg tablet 12.5 mg PO BID Blood Pressure 06/07/23 05/17/24 History
ezetimibe 10 mg tablet 10 mg PO DAILY High Cholesterol 06/07/23 05/17/24 History
fexofenadine 180 mg tablet 180 mg PO DAILY Allergies 06/07/23 05/17/24 History
gabapentin 100 mg capsule 100 mg PO TID pain 06/07/23 05/17/24 History
insulin aspart U-100 100 unit/mL 19 - 20 sliding scale dose SC AC 12/20/23 05/17/24 History
subcutaneous cartridge (Novolog diabetes
PenFill U-100 Insulin aspart)
sodium bicarbonate 650 mg tablet 650 mg PO BID Electrolyte Repletion 12/20/23 05/17/24 History
famotidine 20 mg tablet 20 mg PO DAILY Gastrointestinal 01/04/24 05/17/24 History
Issue
fluticasone propionate 50 2 spray intranasal DAILYPRN PRN 01/04/24 05/17/24 History
mcg/actuation nasal congestion
spray,suspension
insulin degludec 100 unit/mL (3 60 unit SC DAILY Diabetes 01/04/24 05/17/24 History
mL) subcutaneous pen (Tresiba
FlexTouch U-100 insulin)
polyvinyl alcohol-povidone 0.5 1 drp BOTH EYES TIDPRN PRN dry eyes 01/04/24 05/17/24 History
%-0.6 % eye drops (Clear Eyes
Natural Tears)
cyclosporine modified 50 mg capsule 100 mg PO BID 05/17/24 05/17/24 History
furosemide 40 mg tablet 120 mg PO BID 05/17/24 05/17/24 History
levothyroxine 88 mcg tablet 88 mcg PO DAILY 05/17/24 05/17/24 History
metolazone 5 mg tablet 5 mg PO SUWE 05/17/24 05/17/24 History
spironolactone 50 mg tablet 25 mg PO BID 05/17/24 05/17/24 History
therapeutic multivitamin 1 tab PO DAILY 05/17/24 05/17/24 History
Review of Systems
-
Significant lower extremity swelling and abdominal swelling mild shortness of breath
All other systems: Negative unless noted
Physical Exam
Vital Signs
Vital Signs
Temp Pulse Resp BP Pulse Ox
97.8 F 84 19 149/83 98
05/17/24 08:35 05/17/24 12:01 05/17/24 11:45 05/17/24 12:01 05/17/24 12:01
Lab Results
WBC 10.4 10^3/uL (4.8-10.8) 05/17/24 09:35
RBC 2.62 10^6/uL (4.70-6.10) L 05/17/24 09:35
Hgb 8.5 g/dL (13.0-18.0) L 05/17/24 09:35
Hct 24.4 % (39.0-52.0) L 05/17/24 09:35
Plt Count 186 10^3/uL (130-400) 05/17/24 09:35
Sodium 136 mmol/L (135-145) 05/17/24 09:35
Potassium 5.3 mmol/L (3.5-5.1) H 05/17/24 09:35
Chloride 100 mmol/L (98-107) 05/17/24 09:35
Carbon Dioxide 19 mmol/L (22-30) L 05/17/24 09:35
BUN 93 mg/dl (9-20) H 05/17/24 09:35
Creatinine 7.2 mg/dL (0.7-1.3) H* 05/17/24 09:35
eGFR 7.87 05/17/24 09:35
Glucose 178 mg/dl (70-99) H 05/17/24 09:35
Calcium 9.2 mg/dl (8.4-10.2) 05/17/24 09:35
Egi-D-Ffjwzagrisa Pept 1640 pg/ml 05/17/24 09:35
Albumin 4.1 g/dl (3.5-5.0) 05/17/24 09:35
Physical Exam
General no acute distress
HEENT no cephalic atraumatic extraocular muscle intact no scleral icterus no JVD neck supple
lungs clear to auscultation bilateral
heart regular S1-S2 positive
abdomen soft nontender positive bowel sounds
extremities bilateral edema +3
Neurologically nonfocal alert and oriented x 3
Skin no lesions no abrasions no petechiae
Psych normal affect no bizarre behavior
Data Reviewed
-
Labs: Labs Reviewed by me, Discussed with Physician and Discussed with Patient
Assessment/Plan
-
Impression:
CKD 5/ESRD
Nephrotic range proteinuria(11grams/gm of cr) confirmed diabetic nephropathy on kidney biopsy May 2023
MOTTA
Hyperkalemia
Anemia
HTN
DM2
RYAN cirrhosis s/p Liver Transplant 2021 [facility]
Metabolic acidosis
Plan:
Patient will need to be started on dialysis via PermCath. Consult placed to interventional radiology.
I will give 160 mg IV Lasix now.
As discussed with interventional radiology on likely will be able to do a permacath today but will do tomorrow and first treatment and then.
There is no acute need for dialysis today from a electrolyte standpoint he is a volume overloaded but his lungs are clear and he is nonoliguric so should respond to high-dose IV diuretics.
Renal diet with 2 g potassium.
He will be going to [facility] to believe he has been already accepted but will need to correspond with social work.
Discussed with patient in detail and is comfortable with proceeding with the above plan with all questions answered.
Discussed the case with Dr. Gomez as well
Total Time Spent with Patient (in minutes): 35
--- NOTE | 2024-05-17 12:51 | HPS.HSE ---
Family Physician
-
Family Physician: Jaya English
Chief Complaint
-
SWELLING
History of Present Illness
64 male past medical history as below who is presenting from home with anasarca. Patient states of significant lower extremity swelling. States of significant joint pains associated with swelling. States of abdominal distention. States with
decreased appetite. Denies any nausea or vomiting. Denies any lightheadedness or dizziness. States of increasing urinary frequency overnight. States the amount of urination has decreased. States he has been in touch with his primary
physical instructor and has been recommended come to the ER for HD initiation for some time and patient finally decided to come in today. Also has been following outpatient with vascular surgery for AV graft/fistula. Also has been discussing outpatient
with hemodialysis coordination social work instructor. Currently staying with joint pains. Denies any headache, nausea, vomiting, lightheadedness, dizziness. States he did not take his a.m. medication. States he has been in touch with his transplant
nephrology and hepatology at [place] who recommended patient to be continued on cyclosporine for now. Patient was taken off tacrolimus.
Medical History
Past Medical History
Past Medical History: Reports Other
Additional Past Medical History:
Primary hypertension
CKD stage V
Metabolic acidosis
Hypothyroidism
Hyperlipidemia
Gout
Osteoarthritis
Past Surgical History: Reports Other
Additional Past Surgical History:
Liver transplant
Orthopedic surgery
Social History
Tobacco: Former Smoker
Alcohol: None
Family History
Family History: Not pertinent
Allergies / Home Medications
Allergies reflects when Allergies were last updated in [employer]
Home Medications with original date entered in [employer]
Allergy/Medication List:
Allergies
Allergy/AdvReac Type Severity Reaction Status Date / Time
atorvastatin calcium Allergy Unknown Verified 05/17/24 08:37
[From Lipitor]
codeine Allergy Unknown Verified 05/17/24 08:37
lisinopril Allergy Unknown Verified 05/17/24 08:37
simvastatin [From Zocor] Allergy Unknown Verified 05/17/24 08:37
Avquoxn-TIL-CiK Reductase Allergy muscle Verified 05/17/24 08:37
Inhibitor cramps
[Dzmnssl-Qqn-Axl Reductase
Inhibitor]
Home Medications
allopurinol 300 mg tablet 150 mg PO DAILY gout 06/07/23
alprazolam 1 mg tablet 1 mg PO BIDPRN PRN anxiety 06/07/23
amlodipine 10 mg tablet 10 mg PO DAILY Blood Pressure 06/07/23
aspirin 81 mg tablet,delayed release 81 mg PO DAILY Blood Clot Prevention/Tx 06/07/23
carvedilol 25 mg tablet 12.5 mg PO BID Blood Pressure 06/07/23
ezetimibe 10 mg tablet 10 mg PO DAILY High Cholesterol 06/07/23
fexofenadine 180 mg tablet 180 mg PO DAILY Allergies 06/07/23
gabapentin 100 mg capsule 100 mg PO TID pain 06/07/23
insulin aspart U-100 100 unit/mL subcutaneous cartridge (Novolog PenFill U-100 Insulin aspart) 19 - 20 sliding scale dose SC AC diabetes 12/20/23
sodium bicarbonate 650 mg tablet 650 mg PO BID Electrolyte Repletion 12/20/23
famotidine 20 mg tablet 20 mg PO DAILY Gastrointestinal Issue 01/04/24
fluticasone propionate 50 mcg/actuation nasal spray,suspension 2 spray intranasal DAILYPRN PRN congestion 01/04/24
insulin degludec 100 unit/mL (3 mL) subcutaneous pen (Tresiba FlexTouch U-100 insulin) 60 unit SC DAILY Diabetes 01/04/24
polyvinyl alcohol-povidone 0.5 %-0.6 % eye drops (Clear Eyes Natural Tears) 1 drp BOTH EYES TIDPRN PRN dry eyes 01/04/24
cyclosporine modified 50 mg capsule 100 mg PO BID 05/17/24
furosemide 40 mg tablet 120 mg PO BID 05/17/24
levothyroxine 88 mcg tablet 88 mcg PO DAILY 05/17/24
metolazone 5 mg tablet 5 mg PO SUWE 05/17/24
spironolactone 50 mg tablet 25 mg PO BID 05/17/24
therapeutic multivitamin 1 tab PO DAILY 05/17/24
Review of Systems
-
History Source: Patient
Constitutional: Reports Fatigue
EENT: Reports No Symptoms
Respiratory: Reports No Symptoms
Cardiac: Reports No Symptoms
Abdomen/GI: Reports See HPI
: Reports Frequency
Musculoskeletal: Reports Joint Pain, Joint Swelling and Edema
Skin: Denies Itching or Rash
Neurological: Reports No Symptoms
Endocrine: Reports No Symptoms
Hematologic/Lymphatic: Reports No Symptoms
Psych: Reports No Symptoms
Physical Exam
Vital Signs
Vital Signs
Temp Pulse Resp BP Pulse Ox
97.8 F 84 19 149/83 98
05/17/24 08:35 05/17/24 12:01 05/17/24 11:45 05/17/24 12:01 05/17/24 12:01
Physical Exam
General: Well Developed, Well Nourished and No Apparent Distress
HEENT: NormoCephalic, Moist mucous membranes and Atraumatic
Respiratory: Clear
Cardiac: S1/S2 and Regular Rhythm; No Murmur or Rub
GI: Soft, Non Tender, Normal Bowel Sounds and Distended; No Organomegaly
Rectal: Deferred by Provider
Musculoskeletal: No Clubbing, No Cyanosis, Edema, Left Lower Extremity and Edema, Right Lower Extremity
Skin: No Rash
Neuro: Awake, Alert, Oriented, AO x 3, No Motor Deficits and Nonfocal/grossly intact
Psych: Calm
Laboratory Results
-
05/17/24 09:35
05/17/24 09:35
Laboratory Results
Total Bilirubin 0.5 mg/dl (0.2-1.3) 05/17/24 09:35
AST 17 U/L (17-59) 05/17/24 09:35
ALT 15 U/L (0-50) 05/17/24 09:35
Alkaline Phosphatase 111 U/L (38-126) 05/17/24 09:35
Impression/Plan
-
#CKD 5/end-stage renal disease
#Diabetic nephropathy status post kidney biopsy
Anasarca secondary to above
Mild hyperkalemia
Plan for HD catheter placement by interventional radiology
Plan to start HD and monitor in the hospital
Case management for outpatient hemodialysis center
EPO and IV iron per physical instructor
Daily weights
Volume removal should help significant with anasarca
2 g potassium diet
Nephrology following
#Primary hypertension
Continue with carvedilol
Will defer diuretics to nephrology as patient getting started on hemodialysis (Lasix, Aldactone, Zaroxolyn)
#Diabetes mellitus
Reduce basal/bolus regimen as needed to dialysis.
Can increase dose of insulin as needed
Continue with insulin sliding scale
#SKELTON cirrhosis/liver lesion status post ablation status post liver transplant 2021 at [place]
Continue with cyclosporine
#Obesity due to excess calories
Affects all aspects of medical care
#Hyperlipidemia
Continue with Zetia
Continue with aspirin
#Neuropathy
Continue with gabapentin
On low-dose
#History of gout
On allopurinol. May need to be renally adjusted.
Hypothyroidism
Continue with Synthroid
DVT prophylaxis with heparin subcu
Full code
I spent a total of 80 minutes with the patient or on the floor. More than 50% of this time involved counseling and coordination of care.
[2024-05-17] MEDS: ANCEF 10 IV (15:05)
[2024-05-17] MEDS: LASIX 16 MG IV (16:19)
[2024-05-17] MEDS: SandIMMUNE 100 MG PO (16:22)
[2024-05-17 18:00] LABS: Glucose - Point of Care 210 mg/dl (70-99)
[2024-05-17] MEDS: NEURONTIN 100 MG PO ×2 (18:00→20:34)
[2024-05-17] MEDS: ZETIA 10 MG PO (18:00)
[2024-05-17] MEDS: NOVOLOG FLEXPEN 5 UNITS SC (18:03)
[2024-05-17] MEDS: NOVOLOG FLEXPEN-LOW RESISTANCE 2 UNITS SC (18:03)
--- NOTE | 2024-05-17 18:18 | PTCARENOTE ---
Patient admitted to . S. Patient AAOx3, self. Oriented to floor. at bedside.
[2024-05-17] MEDS: COREG 12.5 MG PO (20:31)
[2024-05-17] MEDS: HEPARIN 5000 UNITS SC (20:32)
[2024-05-17] MEDS: NEORAL 100 MG PO (20:33)
[2024-05-17] MEDS: SODIUM BICARBONATE 650 MG PO (20:34)
[2024-05-17] MEDS: ROXICODONE 5 MG PO (20:46)
[2024-05-17 22:00] LABS: Glucose - Point of Care 237 mg/dl (70-99)
[2024-05-17] MEDS: TYLENOL 650 MG PO (22:47)
[2024-05-17] MEDS: XANAX 1 MG PO (22:47)
[2024-05-18 03:15] VITALS: BP 123/64
[2024-05-18] MEDS: SYNTHROID 88 MCG PO (05:22)
[2024-05-18] MEDS: ROXICODONE 5 MG PO (05:24)
[2024-05-18 06:00] VITALS: BMI 41.4
[2024-05-18 07:39] VITALS: BP 134/74
[2024-05-18 07:44] LABS: Glucose - Point of Care 173 mg/dl (70-99)
[2024-05-18 08:38] LABS: Blood Urea Nitrogen 92 mg/dl (9-20); Calcium 9.1 mg/dl (8.4-10.2); Carbon Dioxide 22 mmol/L (22-30); Chloride 100 mmol/L (98-107); Estimated Creatinine Clearance 15 ml/min; Glucose 151 mg/dl (70-99); Iron 86 ug/dl (49-181); Potassium 4.8 mmol/L (3.5-5.1); Sodium 136 mmol/L (135-145); eGFR 7.87
[2024-05-18 08:42] LABS: Glycohemoglobin (HgbA1c) 8.1 % (4.0-5.6)
[2024-05-18 08:44] LABS: Percent Saturation 26 % (20-50); Total Iron Binding Capacity 326 ug/dl (261-462)
[2024-05-18] MEDS: ASPIR LOW (ENTERIC COATED) 81 MG PO (09:26)
[2024-05-18] MEDS: LANTUS 0.4 UNITS SC (09:26)
[2024-05-18] MEDS: SODIUM BICARBONATE 650 MG PO ×2 (09:26→20:45)
[2024-05-18] MEDS: ZETIA 10 MG PO (09:26)
[2024-05-18] MEDS: NEORAL 100 MG PO ×2 (09:27→20:45)
[2024-05-18] MEDS: NEURONTIN 100 MG PO ×3 (09:27→21:53)
[2024-05-18] MEDS: PEPCID 20 MG PO (09:27)
[2024-05-18] MEDS: ZYLOPRIM 150 MG PO (09:27)
[2024-05-18] MEDS: COREG 12.5 MG PO ×2 (09:27→20:45)
[2024-05-18] MEDS: HEPARIN 5000 UNITS SC ×2 (09:28→20:45)
[2024-05-18] MEDS: NOVOLOG FLEXPEN-LOW RESISTANCE 1 UNITS SC (09:29)
[2024-05-18] MEDS: NOVOLOG FLEXPEN 5 UNITS SC ×3 (09:29→17:45)
[2024-05-18 10:02] LABS: Vitamin B12 771 pg/ml (239-931)
--- NOTE | 2024-05-18 11:19 | W.PN.HOSP.TC ---
Today's Communication/Plan
-
HD today
monitor POC-adjust insulin prn
monitor BP -adjust meds if needed
Nephro recs
CM for OP HD center
Assessment / Plan
Assessment / Plan
General: Well Developed, Well Nourished and No Apparent Distress
HEENT: NormoCephalic, Moist mucous membranes and Atraumatic
Respiratory: Clear
Cardiac: S1/S2 and Regular Rhythm; No Murmur or Rub
GI: Soft, Non Tender, Normal Bowel Sounds and Distended; No Organomegaly
Rectal: Deferred by Provider
Musculoskeletal: No Clubbing, No Cyanosis, Edema, Left Lower Extremity and Edema, Right Lower Extremity
Skin: No Rash
Neuro: Awake, Alert, Oriented, AO x 3, No Motor Deficits and Nonfocal/grossly intact
Psych: Calm
#CKD 5/end-stage renal disease
#Diabetic nephropathy status post kidney biopsy
Anasarca secondary to above
Mild hyperkalemia
s/p HD catheter placement by interventional radiology on admission
Plan to start HD and monitor in the hospital
Case management for outpatient hemodialysis center
EPO and IV iron per wet silk hanger
Daily weights
Volume removal should help significant with anasarca
2 g potassium diet
Nephrology following
#Primary hypertension
Continue with carvedilol
hold additional bp meds norvasc, lasix, Aldactone, Zaroxolyn to allow for permissive blood pressure for HD. Can slowly restart meds if BP high.
#Diabetes mellitus
Reduce basal/bolus regimen as needed to dialysis.
Can increase dose of insulin as needed
Continue with insulin sliding scale
POC 173 am
#SKELTON cirrhosis/liver lesion status post ablation status post liver transplant 2021 at [place]
Continue with cyclosporine
#Obesity due to excess calories
Affects all aspects of medical care
#Hyperlipidemia
Continue with Zetia
Continue with aspirin
#Neuropathy
Continue with gabapentin
On low-dose
#History of gout
On allopurinol. May need to be renally adjusted.
Hypothyroidism
Continue with Synthroid
DVT prophylaxis with heparin subcu
Full code
Anticipated Discharge: > 48 hours
Subjective/Interval History
-
Date of Service: May 18, 2024
states of generalized weakness
Objective Data
-
Labs:
Laboratory Results
05/18/24
07:38
Sodium 136
Potassium 4.8
Chloride 100
Carbon Dioxide 22
BUN 92 H
Creatinine 7.2 H*
Glucose 151 H
Calcium 9.1
Vital Signs:
Vital Signs
Temp Pulse Resp BP Pulse Ox
98 F 75 18 134/74 98
05/18/24 07:39 05/18/24 09:27 05/18/24 07:39 05/18/24 09:27 05/18/24 07:39
I&O
05/17/24 05/18/24 05/19/24
06:59 06:59 06:59
Intake Total 1075 / 1075
Balance 1075 / 1075
Data Reviewed
-
Total Time Spent with Patient (in minutes): 55
[2024-05-18 11:49] VITALS: BP 145/85
[2024-05-18 12:06] LABS: Glucose - Point of Care 245 mg/dl (70-99)
[2024-05-18] MEDS: NOVOLOG FLEXPEN-LOW RESISTANCE 2 UNITS SC (12:58)
[2024-05-18] MEDS: RETACRIT 10000 UNITS IV (13:30)
--- NOTE | 2024-05-18 13:46 | CM ---
Reviewed the chart notes and spoke with the patient at the bedside. First HD session to begin today. Patient resides with his spouse in a two story home with no steps to enter. Patient reports only DME is a glucometer. The patient has had [facility] in the past after transplant. The patient reports no SNF. The patient confirmed his pharmacy of choice is [facility] [address] [place]. CM continues to be available to patient/family and is monitoring medical plan for needs at discharge.
Plan: Discharge to home after outpatient HD has been arranged.
[2024-05-18 14:33] LABS: Hepatitis B Surface Antibody Negative; Hepatitis B Surface Antigen Negative (Negative); Hepatitis C Antibody Negative (Negative)
--- NOTE | 2024-05-18 14:37 | W.PN.NEPH.HD ---
Assessment
-
Patient seen on first dialysis
Systolic blood pressure stable at 138 with 2 kg UF
HD again tomorrow
Progress Note - Hemodialysis
-
Date of Service: May 18, 2024
Duration: 30 minutes and 2 hours
Potassium Bath: 2
Calcium Bath: 2.5
Opti-Dialyzer: 160
Ultrafiltration: Other (2kg)
Blood Flow: 400
Dialysate Flow: 600
Heparin: none
EPO: 10,000
[2024-05-18 17:07] LABS: Glucose - Point of Care 147 mg/dl (70-99)
[2024-05-18] MEDS: NOVOLOG FLEXPEN-LOW RESISTANCE SC (17:20)
[2024-05-18 19:29] VITALS: BP 148/79
[2024-05-18] MEDS: ZOFRAN 4 MG IV (20:45)
[2024-05-18 22:13] LABS: Glucose - Point of Care 205 mg/dl (70-99)
[2024-05-18 23:28] VITALS: BP 156/72
[2024-05-19 03:11] VITALS: BP 145/72
[2024-05-19 06:00] VITALS: BMI 41.0
[2024-05-19] MEDS: SYNTHROID 88 MCG PO (06:23)
[2024-05-19 07:46] LABS: Glucose - Point of Care 161 mg/dl (70-99)
[2024-05-19 07:50] VITALS: BP 138/72
[2024-05-19] MEDS: NOVOLOG FLEXPEN SC ×2 (08:08→18:17)
[2024-05-19] MEDS: NOVOLOG FLEXPEN 7 UNITS SC ×3 (08:11→20:41)
[2024-05-19] MEDS: LANTUS 0.4 UNITS SC (08:11)
[2024-05-19] MEDS: ASPIR LOW (ENTERIC COATED) 81 MG PO (08:12)
[2024-05-19] MEDS: COREG 12.5 MG PO ×2 (08:12→20:40)
[2024-05-19] MEDS: ZETIA 10 MG PO (08:12)
[2024-05-19] MEDS: HEPARIN 5000 UNITS SC ×2 (08:12→20:40)
[2024-05-19] MEDS: NEURONTIN 100 MG PO ×3 (08:13→21:28)
[2024-05-19] MEDS: NEORAL 100 MG PO ×2 (08:14→20:40)
[2024-05-19] MEDS: ZYLOPRIM 150 MG PO (08:14)
[2024-05-19] MEDS: NOVOLOG FLEXPEN-LOW RESISTANCE 1 UNITS SC ×2 (08:15→12:44)
[2024-05-19] MEDS: SODIUM BICARBONATE 650 MG PO ×2 (08:15→20:40)
[2024-05-19] MEDS: XANAX 1 MG PO ×2 (08:19→21:28)
[2024-05-19 08:58] LABS: Blood Urea Nitrogen 58 mg/dl (9-20); Calcium 9.3 mg/dl (8.4-10.2); Carbon Dioxide 27 mmol/L (22-30); Chloride 100 mmol/L (98-107); Estimated Creatinine Clearance 20 ml/min; Glucose 149 mg/dl (70-99); Potassium 4.4 mmol/L (3.5-5.1); Sodium 137 mmol/L (135-145); eGFR 11.62
[2024-05-19] MEDS: ZOFRAN 4 MG IV (09:08)
[2024-05-19] MEDS: SENOKOT-S 1 TABLET PO ×2 (09:08→20:40)
--- NOTE | 2024-05-19 10:21 | W.PN.HOSP.TC ---
Today's Communication/Plan
-
HD today
monitor BP
Monitor POC
OP HD center set up-CM aware
Assessment / Plan
Assessment / Plan
General: Well Developed, Well Nourished and No Apparent Distress
HEENT: NormoCephalic, Moist mucous membranes and Atraumatic
Respiratory: Clear
Cardiac: S1/S2 and Regular Rhythm; No Murmur or Rub
GI: Soft, Non Tender, Normal Bowel Sounds and Distended; No Organomegaly
Rectal: Deferred by Provider
Musculoskeletal: No Clubbing, No Cyanosis, Edema, Left Lower Extremity and Edema, Right Lower Extremity
Skin: No Rash
Neuro: Awake, Alert, Oriented, AO x 3, No Motor Deficits and Nonfocal/grossly intact
Psych: Calm
#CKD 5/end-stage renal disease
#Diabetic nephropathy status post kidney biopsy
#Nausea? due to uremia
#Anasarca secondary to above
#Mild hyperkalemia
s/p HD catheter placement by interventional radiology on admission
Plan for repeat HD today.
Case management for outpatient hemodialysis center
EPO and IV iron per insole filler
Daily weights
Volume removal should help significant with anasarca
2 g potassium diet
Nephrology following
#Primary hypertension
Continue with carvedilol
hold additional bp meds norvasc, lasix, Aldactone, Zaroxolyn to allow for permissive blood pressure for HD. Can slowly restart meds if BP high.
BP 138/72 due for HD later today
#Diabetes mellitus
Reduce basal/bolus regimen as needed to dialysis.
Can increase dose of insulin as needed
Continue with insulin sliding scale
POC 161 am
#SKELTON cirrhosis/liver lesion status post ablation status post liver transplant 2021 at [place]
Continue with cyclosporine
#Obesity due to excess calories
Affects all aspects of medical care
#Hyperlipidemia
Continue with Zetia
Continue with aspirin
#Neuropathy
Continue with gabapentin
On low-dose
#History of gout
On allopurinol. per pharmacy okay to continue current dose
Hypothyroidism
Continue with Synthroid
DVT prophylaxis with heparin subcu
Full code
Anticipated Discharge: > 48 hours
Subjective/Interval History
-
Date of Service: May 19, 2024
states of nausea
Had some episodes yesterday
states of persistent swelling
Objective Data
-
Labs:
Laboratory Results
05/19/24
07:54
Sodium 137
Potassium 4.4
Chloride 100
Carbon Dioxide 27
BUN 58 H
Creatinine 5.2 H*
Glucose 149 H
Calcium 9.3
Vital Signs:
Vital Signs
Temp Pulse Resp BP Pulse Ox
97.2 F 72 16 138/72 96
05/19/24 07:50 05/19/24 08:12 05/19/24 07:50 05/19/24 08:12 05/19/24 07:50
I&O
05/18/24 05/19/24 05/20/24
06:59 06:59 06:59
Intake Total 1075 / 1075 1380 / 1380
Balance 1075 / 1075 1380 / 1380
Data Reviewed
-
Total Time Spent with Patient (in minutes): 55
[2024-05-19 11:23] LABS: Glucose - Point of Care 152 mg/dl (70-99)
[2024-05-19 11:30] VITALS: BP 134/66
--- NOTE | 2024-05-19 13:51 | W.PN.NEPH.PH ---
Today's Communication / Plan
-
Dialysis today
Assessment/Plan
-
Impression:
CKD 5/ESRD
Nephrotic range proteinuria(11grams/gm of cr) confirmed diabetic nephropathy on kidney biopsy May 2023
MOTTA
Hyperkalemia
Anemia
HTN
DM2
SKELTON cirrhosis s/p Liver Transplant 2021 [facility]
Metabolic acidosis
Plan:
Next dialysis will be planned for today, orders have been provided
Patient notes some nausea requiring antiemetic
He has not moved his bowels in several days and received laxative this morning
Renal diet with 2 g potassium.
He will be going to [facility] to believe he has been already accepted but will need to correspond with social work.
-
-
Date of Service: May 19, 2024
CC / HPI / ROS
-
Chief Complaint:
CKD
History of Present Illness:
Patient now ESRD to be on Tuesday schedule for now
Hemodynamically stable
Chronically on cyclosporine for liver transplant
Review of Systems:
Some nausea this morning
No chest pain or shortness of breath
Labs
-
Labs:
WBC 10.4 10^3/uL (4.8-10.8) 05/17/24 09:35
RBC 2.62 10^6/uL (4.70-6.10) L 05/17/24 09:35
Hgb 8.5 g/dL (13.0-18.0) L 05/17/24 09:35
Hct 24.4 % (39.0-52.0) L 05/17/24 09:35
Plt Count 186 10^3/uL (130-400) 05/17/24 09:35
Sodium 137 mmol/L (135-145) 05/19/24 07:54
Potassium 4.4 mmol/L (3.5-5.1) 05/19/24 07:54
Chloride 100 mmol/L (98-107) 05/19/24 07:54
Carbon Dioxide 27 mmol/L (22-30) 05/19/24 07:54
BUN 58 mg/dl (9-20) H 05/19/24 07:54
Creatinine 5.2 mg/dL (0.7-1.3) H* 05/19/24 07:54
eGFR 11.62 05/19/24 07:54
Glucose 149 mg/dl (70-99) H 05/19/24 07:54
Calcium 9.3 mg/dl (8.4-10.2) 05/19/24 07:54
Eyf-M-Mytggizjmck Pept 1640 pg/ml 05/17/24 09:35
Albumin 4.1 g/dl (3.5-5.0) 05/17/24 09:35
Physical Exam
-
Vital Signs:
Vital Signs
Temp Pulse Resp BP Pulse Ox
98.2 F 72 16 134/66 96
05/19/24 11:30 05/19/24 11:30 05/19/24 11:30 05/19/24 11:30 05/19/24 11:30
Cardiovascular:: Regular rate and rhythm
Respiratory:: Bilateral: Coarse
Lung Excursion:: Normal
Abdomen:: Nontender and Soft
Bowel Sounds:: Normal
Extremity Edema:: +2: Bilateral:
Baptiste Catheter: No
Other Findings::
CVC
[2024-05-19 15:45] VITALS: BP 156/79
[2024-05-19] MEDS: MANNITOL 25% 12.5 GRAMS IV ×2 (16:20→17:10)
[2024-05-19 17:51] LABS: Glucose - Point of Care 122 mg/dl (70-99)
[2024-05-19] MEDS: NOVOLOG FLEXPEN-LOW RESISTANCE SC (18:18)
[2024-05-19] MEDS: HEPARIN 4300 UNITS INTRACATH (18:39)
[2024-05-19 19:40] VITALS: BP 133/86
[2024-05-19 20:41] LABS: Glucose - Point of Care 226 mg/dl (70-99)
[2024-05-19] MEDS: DULCOLAX 10 MG PO (21:28)
[2024-05-19 21:53] LABS: Glucose - Point of Care 231 mg/dl (70-99)
[2024-05-19 23:41] VITALS: BP 130/71
[2024-05-20 03:17] VITALS: BP 122/68
[2024-05-20 06:00] VITALS: BMI 40.5
[2024-05-20] MEDS: SYNTHROID 88 MCG PO (06:19)
[2024-05-20] MEDS: TYLENOL 650 MG PO (06:22)
[2024-05-20 07:32] LABS: Glucose - Point of Care 140 mg/dl (70-99)
[2024-05-20 07:50] VITALS: BP 145/71
[2024-05-20 07:52] LABS: Blood Urea Nitrogen 41 mg/dl (9-20); Carbon Dioxide 27 mmol/L (22-30); Chloride 97 mmol/L (98-107); Estimated Creatinine Clearance 26 ml/min; Glucose 138 mg/dl (70-99); Potassium 4.3 mmol/L (3.5-5.1); Sodium 134 mmol/L (135-145); eGFR 15.46
[2024-05-20] MEDS: NOVOLOG FLEXPEN-LOW RESISTANCE SC (07:56)
[2024-05-20] MEDS: NOVOLOG FLEXPEN SC (07:56)
[2024-05-20] MEDS: LANTUS 0.4 UNITS SC (08:03)
[2024-05-20] MEDS: ZETIA 10 MG PO (08:04)
[2024-05-20] MEDS: ZYLOPRIM 150 MG PO (08:04)
[2024-05-20] MEDS: ASPIR LOW (ENTERIC COATED) 81 MG PO (08:04)
[2024-05-20] MEDS: HEPARIN 5000 UNITS SC ×2 (08:04→20:38)
[2024-05-20] MEDS: SODIUM BICARBONATE 650 MG PO (08:04)
[2024-05-20] MEDS: NEORAL 100 MG PO ×2 (08:04→20:37)
[2024-05-20] MEDS: PEPCID 20 MG PO (08:05)
[2024-05-20] MEDS: COREG 12.5 MG PO ×2 (08:05→20:38)
[2024-05-20] MEDS: SENOKOT-S 1 TABLET PO ×2 (08:05→20:38)
[2024-05-20] MEDS: NEURONTIN 100 MG PO ×3 (08:05→22:04)
[2024-05-20] MEDS: NOVOLOG FLEXPEN 10 UNITS SC ×3 (08:11→17:12)
[2024-05-20] MEDS: ZOFRAN 4 MG IV (08:12)
[2024-05-20] MEDS: XANAX 1 MG PO ×2 (08:20→22:06)
--- NOTE | 2024-05-20 09:16 | W.PN.NEPH.PH ---
Today's Communication / Plan
-
HD tomorrow
Assessment/Plan
-
Impression:
CKD 5/ESRD
Nephrotic range proteinuria(11grams/gm of cr) confirmed diabetic nephropathy on kidney biopsy May 2023
MOTTA
Hyperkalemia
Anemia
HTN
DM2
SKELTON cirrhosis s/p Liver Transplant 2021 [facility]
Metabolic acidosis
Plan:
Next dialysis will be planned for tomorrow, orders have been provided
Patient notes some nausea requiring antiemetic
He has not moved his bowels in several days and received laxative again this morning
Renal diet with 2 g potassium.
He will be going to [facility] to believe he has been already accepted but will need to correspond with social work.
-
-
Date of Service: May 20, 2024
CC / HPI / ROS
-
Chief Complaint:
CKD
History of Present Illness:
Patient now ESRD to be on Tuesday schedule for now
Hemodynamically stable
Chronically on cyclosporine for liver transplant
Review of Systems:
Persistent nausea this morning
Constipation
No chest pain or shortness of breath
Labs
-
Labs:
WBC 10.4 10^3/uL (4.8-10.8) 05/17/24 09:35
RBC 2.62 10^6/uL (4.70-6.10) L 05/17/24 09:35
Hgb 8.5 g/dL (13.0-18.0) L 05/17/24 09:35
Hct 24.4 % (39.0-52.0) L 05/17/24 09:35
Plt Count 186 10^3/uL (130-400) 05/17/24 09:35
Sodium 134 mmol/L (135-145) L 05/20/24 06:33
Potassium 4.3 mmol/L (3.5-5.1) 05/20/24 06:33
Chloride 97 mmol/L (98-107) L 05/20/24 06:33
Carbon Dioxide 27 mmol/L (22-30) 05/20/24 06:33
BUN 41 mg/dl (9-20) H 05/20/24 06:33
Creatinine 4.1 mg/dL (0.7-1.3) H* 05/20/24 06:33
eGFR 15.46 05/20/24 06:33
Glucose 138 mg/dl (70-99) H 05/20/24 06:33
Calcium 9.0 mg/dl (8.4-10.2) 05/20/24 06:33
Ohn-F-Gtgszunmtml Pept 1640 pg/ml 05/17/24 09:35
Albumin 4.1 g/dl (3.5-5.0) 05/17/24 09:35
Physical Exam
-
Vital Signs:
Vital Signs
Temp Pulse Resp BP Pulse Ox
98.3 F 71 16 145/71 95
05/20/24 07:50 05/20/24 08:05 05/20/24 07:50 05/20/24 08:05 05/20/24 07:50
Cardiovascular:: Regular rate and rhythm
Respiratory:: Bilateral: Coarse
Lung Excursion:: Normal
Abdomen:: Nontender and Soft
Bowel Sounds:: Normal
Extremity Edema:: +1: Bilateral:
Baptiste Catheter: No
Other Findings::
CVC
--- NOTE | 2024-05-20 11:16 | W.PN.HOSP.TC ---
Today's Communication/Plan
-
HD tomm
monitor BP
Monitor POC'
AXR
OP HD center set up-CM aware
Assessment / Plan
Assessment / Plan
General: Well Developed, Well Nourished and No Apparent Distress
HEENT: NormoCephalic, Moist mucous membranes and Atraumatic
Respiratory: Clear
Cardiac: S1/S2 and Regular Rhythm; No Murmur or Rub
GI: Soft, Non Tender obese , Normal Bowel Sounds and Distended; No Organomegaly
Rectal: Deferred by Provider
Musculoskeletal: No Clubbing, No Cyanosis, Edema, Left Lower Extremity and Edema, Right Lower Extremity
Skin: No Rash
Neuro: Awake, Alert, Oriented, AO x 3, No Motor Deficits and Nonfocal/grossly intact
Psych: Calm
#CKD 5/end-stage renal disease
#Diabetic nephropathy status post kidney biopsy
#Nausea? due to uremia
#Anasarca secondary to above
#Mild hyperkalemia
s/p HD catheter placement by interventional radiology on admission
Plan for repeat HD in morning
Case management for outpatient hemodialysis center
EPO and IV iron per bathhouse attendant
Daily weights
Volume removal should help significant with anasarca
2 g potassium diet
Nephrology following
#Primary hypertension
Continue with carvedilol
hold additional bp meds norvasc, lasix, Aldactone, Zaroxolyn to allow for permissive blood pressure for HD. Can slowly restart meds if BP high.
#Nausea likely 2/2 uremic vs. constipation
bowel regimen for now
Check abdomen xray
may require enema
#Diabetes mellitus
Reduce basal/bolus regimen as needed to dialysis.
Can increase dose of insulin as needed
Continue with insulin sliding scale
POC 140 am
#SKELTON cirrhosis/liver lesion status post ablation status post liver transplant 2021 at [place]
Continue with cyclosporine
#Obesity due to excess calories
Affects all aspects of medical care
#Hyperlipidemia
Continue with Zetia
Continue with aspirin
#Neuropathy
Continue with gabapentin
On low-dose
#History of gout
On allopurinol. per pharmacy okay to continue current dose
Hypothyroidism
Continue with Synthroid
DVT prophylaxis with heparin subcu
Full code
Anticipated Discharge: 24 - 48 hours
Subjective/Interval History
-
Date of Service: May 20, 2024
states of some nausea
states of last bm 3-4 days ago
passing flatuelnce
Objective Data
-
Labs:
Laboratory Results
05/20/24
06:33
Sodium 134 L
Potassium 4.3
Chloride 97 L
Carbon Dioxide 27
BUN 41 H
Creatinine 4.1 H*
Glucose 138 H
Calcium 9.0
Vital Signs:
Vital Signs
Temp Pulse Resp BP Pulse Ox
98.3 F 71 16 145/71 97
05/20/24 07:50 05/20/24 08:05 05/20/24 07:50 05/20/24 08:05 05/20/24 09:00
I&O
05/19/24 05/20/24 05/21/24
06:59 06:59 06:59
Intake Total 1380 / 1380 900 / 900
Output Total 0 / 0
Balance 1380 / 1380 900 / 900
Data Reviewed
-
Total Time Spent with Patient (in minutes): 55
[2024-05-20 11:20] VITALS: BP 135/63
[2024-05-20 12:37] LABS: Glucose - Point of Care 211 mg/dl (70-99)
[2024-05-20] MEDS: NOVOLOG FLEXPEN-LOW RESISTANCE 2 UNITS SC ×2 (13:29→17:11)
[2024-05-20 15:40] VITALS: BP 115/89
[2024-05-20 17:06] LABS: Glucose - Point of Care 212 mg/dl (70-99)
[2024-05-20 19:40] VITALS: BP 151/68
[2024-05-20 21:48] LABS: Glucose - Point of Care 198 mg/dl (70-99)
[2024-05-20] MEDS: DULCOLAX PO (22:04)
[2024-05-20 23:50] VITALS: BP 126/59
[2024-05-21] VITALS (7 sets, daily range): BP systolic 130–155; BP diastolic 65–76; BMI 41.0
[2024-05-21] MEDS: SYNTHROID 88 MCG PO (05:08)
[2024-05-21 07:14] LABS: Glucose - Point of Care 133 mg/dl (70-99)
[2024-05-21] MEDS: NOVOLOG FLEXPEN-LOW RESISTANCE SC ×2 (07:17→11:43)
[2024-05-21] MEDS: LANTUS 0.4 UNITS SC (07:35)
[2024-05-21] MEDS: NOVOLOG FLEXPEN 10 UNITS SC ×3 (07:36→16:59)
[2024-05-21 08:25] LABS: Hematocrit 22.6 % (39.0-52.0)
[2024-05-21 08:38] LABS: Blood Urea Nitrogen 53 mg/dl (9-20); Calcium 9.1 mg/dl (8.4-10.2); Carbon Dioxide 28 mmol/L (22-30); Chloride 96 mmol/L (98-107); Estimated Creatinine Clearance 22 ml/min; Glucose 193 mg/dl (70-99); Potassium 4.2 mmol/L (3.5-5.1); Sodium 132 mmol/L (135-145); eGFR 12.79
[2024-05-21] MEDS: RETACRIT 10000 UNITS IV (09:23)
--- NOTE | 2024-05-21 10:44 | CM ---
Addendum entered by Maci Kowalski RN 05/21/24 15:59:
Patient now accepted at [facility] to start on Tuesday at 3:45pm. Patient will drive self to HD.
Addendum entered by Maci Kowalski RN 05/21/24 15:00:
Received message that the patient's spouse would like to speak with CM. Left voice message for spouse to call back.
Addendum entered by Maci Kowalski RN 05/21/24 13:58:
TEE spoke with Lilibeth with [facility]. Unfortunately, the [place] [facility] site is full. [facility] site is available for M-W-F at 12:15pm. Discussed with the patient. The patient is agreeable with that plan. Lilibeth updated.
Plan: Start HD on Tuesday at [facility] with a chair time of 12:15pm M-W-F. Patient will be transporting self.
Original Note:
Reviewed the chart notes and spoke with the patient at the bedside. Reviewed days/times for HD preference. Form and clinicals, labs, and HD flow sheets faxed to [facility]. Patient's preference is [facility], afternoon, and M-W-. CM
continues to be available to patient/family and is monitoring medical plan for needs at discharge.
Plan: Discharge to home with outpatient HD at [facility]. Chair day and time TBD.
--- NOTE | 2024-05-21 11:04 | W.PN.NEPH.HD ---
Assessment
-
pt seen during HD
vitals stable
UF as tolerates
nausea is better
CVC functions well
Await confirmation of HD chair at [facility]
Progress Note - Hemodialysis
-
Date of Service: May 21, 2024
Duration: 15 minutes and 3 hours
Potassium Bath: 2
Calcium Bath: 2.5
Opti-Dialyzer: 160
Ultrafiltration: Other (2.5kg)
Blood Flow: 400
Dialysate Flow: 600
Heparin: no
EPO: [id number]
[2024-05-21] MEDS: HEPARIN 3800 UNITS INTRACATH (11:18)
[2024-05-21] MEDS: NEURONTIN 100 MG PO ×3 (11:40→22:11)
[2024-05-21] MEDS: ZYLOPRIM 150 MG PO (11:40)
[2024-05-21] MEDS: ZETIA 10 MG PO (11:41)
[2024-05-21] MEDS: SENOKOT-S 1 TABLET PO ×2 (11:41→22:10)
[2024-05-21] MEDS: COREG 12.5 MG PO ×2 (11:41→22:09)
[2024-05-21] MEDS: NEORAL 100 MG PO ×2 (11:41→22:10)
[2024-05-21] MEDS: HEPARIN 5000 UNITS SC ×2 (11:41→22:09)
[2024-05-21] MEDS: ASPIR LOW (ENTERIC COATED) 81 MG PO (11:41)
[2024-05-21 11:43] LABS: Glucose - Point of Care 119 mg/dl (70-99)
[2024-05-21] MEDS: XANAX 1 MG PO ×2 (11:49→22:11)
[2024-05-21] MEDS: ZOFRAN 4 MG IV (14:24)
--- NOTE | 2024-05-21 15:16 | W.PN.HOSP.TC ---
Today's Communication/Plan
-
Continue HD per nephrology
Case management for outpatient HD chair
Continue IV iron and CLIFFORD
Daily BMP and phosphorus
Daily CBC
Assessment / Plan
Assessment / Plan
#New ESRD
#Progressive diabetic nephropathy
#Anasarca and mild hyperkalemia
-Recent kidney biopsy that showed diabetic nephropathy; was CKD V, now ESRD
-Suspect that allergy to ACEi has contributed with his progressive renal disease secondary to DM
-Status post HD tunneled cath placed by interventional radiology on this hospital stay
-Anasarca and electrolytes have improved with initiation of hemodialysis regimen
-Case management assisting with outpatient HD chair availability
-Continue HD here per nephrology
-Daily BMP, Phos
#Anemia of chronic kidney disease
-Has had downtrending hemoglobin, no signs of hemorrhage
-Likely reduced EPO output from failing kidney; hemoglobin down to near 8 today
-Has been started on IV iron and CLIFFORD by nephrology
-Continue to trend hemoglobin here, supportive transfusions if needed
#IDDM
#Diabetic neuropathy
-No recent A1c; Home medications include Tresiba 60 units daily, NovoLog ISS, sodium bicarb
-Patient should be on high intensity statin for primary risk reduction though has documented allergy
-Associated with diabetic neuropathy for which she takes gabapentin; also with nephropathy as above
-Started on ISS with Accu-Cheks upon arrival
-Blood glucose goal 140-180
#Nausea
-Likely secondary to uremia, as of 05/21 appears improved
-Continue antiemetics as needed
#Primary hypertension
-Home medications include amlodipine, carvedilol, Aldactone, high-dose Lasix and metolazone
-Patient's home medications have been readjusted to carvedilol alone since new ESRD diagnosis
-Most recent blood pressure 138/70 mmHg
-Monitor BP and consider resuming amlodipine
#Status post orthotopic liver transplant
#H/O SKELTON cirrhosis
-Performed at [place] in 2021; remains on cyclosporine for immunosuppression
-Will avoid unnecessary hepatotoxic agents as possible
-Should have follow-up OP with transplant team after DC
#Gout
-Home regimen includes allopurinol
-No signs of gout flare at this time
#Hypothyroidism
-Unclear etiology, home medications include 88 mcg levothyroxine
-No signs or symptoms of thyroid dysfunction at this time
#Morbid obesity
-BMI 41, affects all aspects of care
-Encourage 30 minutes of aerobic exercise as tolerated daily
-Encourage healthy diet, avoidance of trans/saturated fats and high glycemic loads
DVT prophylaxis: SQ heparin
Diet: Carbohydrate controlled
CODE STATUS: Full
Anticipated Discharge: > 48 hours
Subjective/Interval History
-
Date of Service: May 21, 2024
Seen and examined at the bedside while having dialysis. No events overnight. AFVSS this
Hemoglobin continues to downtrend, patient denies any active bleeding
Denies any new complaints as of this morning
Objective Data
-
Labs:
Laboratory Results
05/21/24
08:08
Hgb 8.0 L
Hct 22.6 L
Sodium 132 L
Potassium 4.2
Chloride 96 L
Carbon Dioxide 28
BUN 53 H
Creatinine 4.8 H*
Glucose 193 H
Calcium 9.1
Vital Signs:
Vital Signs
Temp Pulse Resp BP Pulse Ox
98.1 F 68 16 138/70 96
05/21/24 14:42 05/21/24 14:42 05/21/24 14:42 05/21/24 14:42 05/21/24 14:42
I&O
05/20/24 05/21/24 05/22/24
06:59 06:59 06:59
Intake Total 900 / 900 1080 / 1080
Output Total 0 / 0 0 / 0
Balance 900 / 900 1080 / 1080
Review of Systems
-
History Source: Patient
All other systems: Reviewed and negative
Physical Exam
-
General: Well Developed, No Apparent Distress, Comfortable and Morbidly Obese
HEENT: Normocephalic, Atraumatic, Moist Mucous Membranes and Anicteric
Respiratory: Clear to Auscultation and Non Labored Respirations
Cardiac: Regular Rhythm and S1/S2; Negative Murmur, Rub or Gallop
GI: Soft, Nontender, Nondistended and Normal Bowel Sounds
Musculoskeletal: No Clubbing, No Cyanosis and Other (Trace lower extremity edema)
Skin: Warm and Dry; Negative Rash or Normal Turgor
Neuro: AO x 3 and Nonfocal/Grossly Intact; Negative Tremors
Psych: Calm
Data Reviewed
-
Labs: Labs Reviewed by me and Discussed with Patient
[2024-05-21] MEDS: NOVOLOG FLEXPEN-LOW RESISTANCE 1 UNITS SC (16:58)
[2024-05-21 17:05] LABS: Glucose - Point of Care 157 mg/dl (70-99)
[2024-05-21 21:47] LABS: Glucose - Point of Care 163 mg/dl (70-99)
[2024-05-21] MEDS: DULCOLAX PO (22:11)
[2024-05-22 03:12] VITALS: BP 115/65
[2024-05-22] MEDS: SYNTHROID 88 MCG PO (05:29)
[2024-05-22 06:00] VITALS: BMI 40.6
[2024-05-22 07:16] VITALS: BP 146/67
[2024-05-22 07:16] LABS: Glucose - Point of Care 145 mg/dl (70-99)
[2024-05-22] MEDS: ZETIA 10 MG PO (07:40)
[2024-05-22] MEDS: ZYLOPRIM 150 MG PO (07:41)
[2024-05-22] MEDS: PEPCID 20 MG PO (07:41)
[2024-05-22] MEDS: ASPIR LOW (ENTERIC COATED) 81 MG PO (07:41)
[2024-05-22] MEDS: NEURONTIN 100 MG PO (07:41)
[2024-05-22] MEDS: LANTUS 0.4 UNITS SC (07:41)
[2024-05-22] MEDS: SENOKOT-S 1 TABLET PO (07:41)
[2024-05-22] MEDS: NEORAL 100 MG PO (07:41)
[2024-05-22] MEDS: HEPARIN 5000 UNITS SC (07:41)
[2024-05-22] MEDS: COREG 12.5 MG PO (07:41)
[2024-05-22] MEDS: NOVOLOG FLEXPEN 10 UNITS SC ×2 (07:42→11:58)
[2024-05-22] MEDS: NOVOLOG FLEXPEN-LOW RESISTANCE SC (07:42)
[2024-05-22 08:32] LABS: Blood Urea Nitrogen 36 mg/dl (9-20); Calcium 8.7 mg/dl (8.4-10.2); Carbon Dioxide 29 mmol/L (22-30); Chloride 94 mmol/L (98-107); Estimated Creatinine Clearance 26 ml/min; Glucose 133 mg/dl (70-99); Potassium 3.7 mmol/L (3.5-5.1); Sodium 132 mmol/L (135-145); eGFR 15.92
[2024-05-22 08:49] LABS: % Basophils 0.5 % (0-2); % Eosinophils 5.9 % (0-6); % Immature Granulocytes 1.3 % (0-0.5); % Monocytes 10.3 % (1.7-9.3); Absolute Eosinophils 0.5 10^3/uL (0-0.7); Absolute Immature Granulocytes 0.1 10^3/uL (0-0.05); Absolute Lymphocytes 1.7 10^3/uL (1.2-3.4); Absolute Monocytes 0.9 10^3/uL (0.1-0.6); Absolute Neutrophils 5.1 10^3/uL (1.4-6.5); Hematocrit 23.2 % (39.0-52.0); Mean Corp Hgb Conc. 34.5 g/dL (33.0-37.0); Mean Corpuscular Volume 92.8 fL (80.0-94.0); Mean Platelet Volume 9.8 fL (7.4-10.4); Nucleated Red Blood Cells % 0 % (-); Platelet Count 148 10^3/uL (130-400); Red Cell Dist. Width 14.8 % (11.5-14.5); White Blood Cell Count 8.2 10^3/uL (4.8-10.8)
--- NOTE | 2024-05-22 11:42 | W.PN.HOSP.TC ---
Today's Communication/Plan
-
Discharge
First OP hemodialysis on Tuesday
Assessment / Plan
Assessment / Plan
#New ESRD
#Progressive diabetic nephropathy
#Anasarca and mild hyperkalemia
-Recent kidney biopsy that showed diabetic nephropathy; was CKD V, now ESRD
-Suspect that allergy to ACEi has contributed with his progressive renal disease secondary to DM
-Status post HD tunneled cath placed by interventional radiology on this hospital stay
-Anasarca and electrolytes have improved with initiation of hemodialysis regimen
-Case management assisting with outpatient HD chair availability
-Continue HD here per nephrology
-Daily BMP, Phos
#Anemia of chronic kidney disease
-Has had downtrending hemoglobin, no signs of hemorrhage
-Likely reduced EPO output from failing kidney; hemoglobin down to near 8 today
-Has been started on IV iron and CLIFFORD by nephrology
-Continue to trend hemoglobin here, supportive transfusions if needed
#IDDM
#Diabetic neuropathy
-No recent A1c; Home medications include Tresiba 60 units daily, NovoLog ISS, sodium bicarb
-Patient should be on high intensity statin for primary risk reduction though has documented allergy
-Associated with diabetic neuropathy for which she takes gabapentin; also with nephropathy as above
-Started on ISS with Accu-Cheks upon arrival
-Blood glucose goal 140-180
#Nausea
-Likely secondary to uremia, as of 05/21 appears improved
-Continue antiemetics as needed
#Primary hypertension
-Home medications include amlodipine, carvedilol, Aldactone, high-dose Lasix and metolazone
-Patient's home medications have been readjusted to carvedilol alone since new ESRD diagnosis
-Most recent blood pressure 138/70 mmHg
-Monitor BP and consider resuming amlodipine
#Status post orthotopic liver transplant
#H/O SKELTON cirrhosis
-Performed at [place] in 2021; remains on cyclosporine for immunosuppression
-Will avoid unnecessary hepatotoxic agents as possible
-Should have follow-up OP with transplant team after DC
#Gout
-Home regimen includes allopurinol
-No signs of gout flare at this time
#Hypothyroidism
-Unclear etiology, home medications include 88 mcg levothyroxine
-No signs or symptoms of thyroid dysfunction at this time
#Morbid obesity
-BMI 41, affects all aspects of care
-Encourage 30 minutes of aerobic exercise as tolerated daily
-Encourage healthy diet, avoidance of trans/saturated fats and high glycemic loads
DVT prophylaxis: SQ heparin
Diet: Carbohydrate controlled
CODE STATUS: Full
Anticipated Discharge: Today
Subjective/Interval History
-
Date of Service: May 22, 2024
Seen and examined at the bedside. No acute events reported overnight. AFVSS this morning
Patient was arranged in outpatient HD chair, for session Tuesday. Labs stable
He denies any new complaints today. Looks forward to going home
Objective Data
-
Labs:
Laboratory Results
05/22/24 05/22/24
05:22 05:23
WBC 8.2
Hgb 8.0 L
Hct 23.2 L
Plt Count 148 D
Sodium 132 L
Potassium 3.7
Chloride 94 L
Carbon Dioxide 29
BUN 36 H
Creatinine 4.0 H
Glucose 133 H
Calcium 8.7
Vital Signs:
Vital Signs
Temp Pulse Resp BP Pulse Ox
98.0 F 71 16 146/67 98
05/22/24 07:16 05/22/24 07:16 05/22/24 07:16 05/22/24 07:16 05/22/24 07:16
I&O
05/21/24 05/22/24 05/23/24
06:59 06:59 06:59
Intake Total 1080 / 1080 1400 / 1400 720 / 720
Output Total 0 / 0 200 / 200
Balance 1080 / 1080 1200 / 1200 720 / 720
Review of Systems
-
History Source: Patient
All other systems: Reviewed and negative
Physical Exam
-
General: Well Developed, No Apparent Distress and Morbidly Obese
HEENT: Normocephalic, Atraumatic and Moist Mucous Membranes
Respiratory: Clear to Auscultation and Non Labored Respirations
Cardiac: Regular Rhythm and S1/S2; Negative Murmur, Rub or Gallop
GI: Soft, Nontender, Nondistended and Normal Bowel Sounds
Musculoskeletal: No Clubbing, No Cyanosis and No Edema
Skin: Warm, Dry and Normal Turgor; Negative Rash
Neuro: AO x 3 and Nonfocal/Grossly Intact
Psych: Calm
Data Reviewed
-
Labs: Labs Reviewed by me, Discussed with Physician (Nephrology) and Discussed with Patient
--- NOTE | 2024-05-22 11:49 | CM ---
Addendum entered by Maci Kowalski RN 05/22/24 12:03:
CM spoke with Nancy from [facility] and confirmed start date is tomorrow.
Original Note:
Reviewed the chart notes. Patient has a HD chair time of 3:45pm at the [facility] on . Anticipate patient will start tomorrow. Patient or spouse will be able to provide transportation. CM continues to be available to
patient/family and is monitoring medical plan for needs at discharge.
Plan: Discharge to home with outpatient HD on . Patient's spouse will provide transportation home.
[2024-05-22 11:54] VITALS: BP 142/72
[2024-05-22 11:58] LABS: Glucose - Point of Care 183 mg/dl (70-99)
[2024-05-22] MEDS: NOVOLOG FLEXPEN-LOW RESISTANCE 1 UNITS SC (11:59)
--- NOTE | 2024-05-22 13:20 | W.PN.NEPH.PH ---
Today's Communication / Plan
-
d/c today
Assessment/Plan
-
Impression:
CKD 5/ESRD
Nephrotic range proteinuria(11grams/gm of cr) confirmed diabetic nephropathy on kidney biopsy May 2023
MOTTA
Hyperkalemia
Anemia
HTN
DM2
SKELTON cirrhosis s/p Liver Transplant 2021 [place]
Metabolic acidosis
Plan:
Next dialysis will be planned for tomorrow at [facility]
Renal diet with 2 g potassium.
BP stable
-
-
Date of Service: May 22, 2024
CC / HPI / ROS
-
Chief Complaint:
CKD
History of Present Illness:
Patient now ESRD to be on Tuesday schedule for now
Hemodynamically stable
Chronically on cyclosporine for liver transplant
Review of Systems:
no chest pain or shortness of breath
Labs
-
Labs:
WBC 8.2 10^3/uL (4.8-10.8) 05/22/24 05:23
RBC 2.50 10^6/uL (4.70-6.10) L 05/22/24 05:23
Hgb 8.0 g/dL (13.0-18.0) L 05/22/24 05:23
Hct 23.2 % (39.0-52.0) L 05/22/24 05:23
Plt Count 148 10^3/uL (130-400) D 05/22/24 05:23
Sodium 132 mmol/L (135-145) L 05/22/24 05:22
Potassium 3.7 mmol/L (3.5-5.1) 05/22/24 05:22
Chloride 94 mmol/L (98-107) L 05/22/24 05:22
Carbon Dioxide 29 mmol/L (22-30) 05/22/24 05:22
BUN 36 mg/dl (9-20) H 05/22/24 05:22
Creatinine 4.0 mg/dL (0.7-1.3) H 05/22/24 05:22
eGFR 15.92 05/22/24 05:22
Glucose 133 mg/dl (70-99) H 05/22/24 05:22
Calcium 8.7 mg/dl (8.4-10.2) 05/22/24 05:22
Phosphorus 5.0 mg/dl (2.5-4.5) H 05/22/24 05:22
Mlu-U-Hdfxxjbyotl Pept 1640 pg/ml 05/17/24 09:35
Albumin 4.1 g/dl (3.5-5.0) 05/17/24 09:35
Physical Exam
-
Vital Signs:
Vital Signs
Temp Pulse Resp BP Pulse Ox
97.8 F 67 16 142/72 99
05/22/24 11:54 05/22/24 11:54 05/22/24 11:54 05/22/24 11:54 05/22/24 11:54
Cardiovascular:: Regular rate and rhythm
Lung Excursion:: Normal
Extremity Edema:: +1: Bilateral:
Baptiste Catheter: No
Other Findings::
CVC
sitting on bed with out distress
skin no visible rash
[2024-05-22 15:21] LABS: Hepatitis B Core Ab, Total Negative (Negative)
--- NOTE | 2024-05-23 15:49 | W.DCSUMMARY ---
Discharge Summary
Discharge Data
Date of Admission: 05/17/24
Date of Discharge: 05/22/24
Total time spent discharging patient (in min): 40
-
Pending Results: No
Hospital Course
Discharging Physician :� Reno Hodge DO
Disposition :���� Home
Principal Discharge diagnosis :�
New onset ESRD
EDUARDO on CKD stage V
Chronic Discharge diagnosis :�
Diabetic nephropathy
IDDM
Hypertension
Dyslipidemia
Hypothyroidism
Gout
S/p liver transplant
Hospital Course :�
64-year-old male that presented from home with anasarca and increased weight, reduced micturition. Was told to come into the ED by his primary delivery driver assistant. Upon arrival found to have elevated creatinine, mild hyperkalemia, significant volume
overload status. Nephrology was consulted and began hemodialysis for new ESRD. HD catheter was placed by interventional radiology. Developed anemia of chronic kidney disease and was started on IV iron and erythropoietin stimulating agents by
nephrology. Hemoglobin stabilized near 8 prior to discharge. Due to his new ESRD status is insulin requirements de-escalated, long-acting insulin was reduced from 60 units to 40 units nightly, was started on 10 units of short acting insulin with
meals. At time of discharge was continued on Lasix 80 mg daily and metolazone 5 mg daily. Provided a prescription for Zofran due to dialysis associated nausea. Discontinued his spironolactone, sodium bicarbonate.
Consultants :
Nephrology -- Tam Sinha DO
Important imaging findings :� N/A
Procedure findings :� N/A
Follow-up :
Dialysis to begin 5 in the afternoon
Follow-up with PCP and delivery driver assistant
CBC and BMP with nephrology
Pulm follow-up for sleep study
Discharge Plan
-
Patient Disposition: Home (Routine Discharge)
Discharge Diagnosis/Procedures: End-stage renal disease
Diabetic nephropathy
Anasarca
Anemia of chronic kidney disease
Condition: Fair
Diet: Other diet
Additional Diets: Standard renal diet (see information provided)
Activity: As tolerated
Driving Restrictions: As prior to admission
Bathing Restrictions: Keep HD access dry
Blood Work: BMP with delivery driver assistant
Others Tests: Sleep study with pulmonology
Activity Restrictions/Additional Instructions:
After discharge from the hospital schedule follow-up appointment with your family doctor. Should be seen in office within 1 to 2 weeks of discharge from the hospital.
Referral provided for delivery driver assistant. Contact office to schedule follow-up appointment if you need a delivery driver assistant
Referral provided for pulmonology. Contact their office to schedule appointment for sleep study
Blood glucose monitoring: Monitor your blood sugars at mealtime and nightly, write down these values and a booklet and take them to your next doctor's appointment.
Instructions: Dialysis and diet
Referrals:
Blayne Greer MD [Active] - in two to three weeks
Jaya English MD [Family Provider] -
Maki Lynch MD [Active] - in one to two weeks
Additional Discharge Medication Instructions: Continue Lasix 80 mg daily and metolazone 5 mg daily
Start insulin aspart 10 units with meals (30 minutes prior to eating)
Reduce long-acting insulin to insulin glargine 40 units nightly
Stop taking spironolactone and sodium bicarbonate
Hold amlodipine until you see your family doctor as an outpatient
Prescriptions:
New
insulin glargine 100 unit/mL (3 mL) insulin pen
40 unit SC QPM 30 Days Qty: 15 0RF
insulin aspart U-100 100 unit/mL (3 mL) insulin pen
10 unit SC AC 30 Days Qty: 9 0RF
furosemide [Lasix] 80 mg tablet
80 mg PO DAILY 30 Days Qty: 30 0RF
metolazone 5 mg tablet
5 mg PO DAILY 30 Days Qty: 30 0RF
Rx Instructions:
30 mins before lasix
ondansetron 4 mg tablet,disintegrating
4 mg PO Q8H PRN (Reason: nausea and vomiting) 14 Days Qty: 30 0RF
Continued
carvedilol 25 mg Tablet
12.5 mg PO BID
alprazolam 1 mg Tablet
1 mg PO BIDPRN PRN (Reason: anxiety)
fexofenadine 180 mg Tablet
180 mg PO DAILY
aspirin 81 mg Tablet,Delayed Release (Dr/Ec)
81 mg PO DAILY
allopurinol 300 mg Tablet
150 mg PO DAILY
gabapentin 100 mg Capsule
100 mg PO TID
ezetimibe 10 mg Tablet
10 mg PO DAILY
fluticasone propionate 50 mcg/actuation [place],Suspension
2 spray INTRANASAL DAILYPRN PRN (Reason: congestion)
Clear Eyes Natural Tears 0.5-0.6 % Drops
1 drp BOTH EYES TIDPRN PRN (Reason: dry eyes)
famotidine 20 mg tablet
20 mg PO DAILY
therapeutic multivitamin Tablet
1 tab PO DAILY
levothyroxine 88 mcg Tablet
88 mcg PO DAILY
cyclosporine modified 50 mg Capsule
100 mg PO BID
Held
amlodipine 10 mg Tablet
10 mg PO DAILY
Hold Instructions: Until you see your family doctor
Discontinued
sodium bicarbonate 650 mg Tablet
650 mg PO BID
insulin aspart U-100 [Novolog PenFill U-100 Insulin] 100 unit/mL Cartridge
19 - 20 sliding scale dose SC AC
insulin degludec [Tresiba FlexTouch U-100] 100 unit/mL (3 mL) Insulin Pen
60 unit SC DAILY
furosemide 40 mg Tablet
120 mg PO BID
metolazone 5 mg Tablet
5 mg PO SUWE
spironolactone 50 mg Tablet
25 mg PO BID
Discharge Orders:
Discharge Patient (As Directed); Ordered 04/01/25
Ordered By: Reno Hodge
Discharge Date and Time
Discharge Date/Time: 05/22/24 14:01
Print Language: SERBIAN
== END 2024-05-22 14:01 | disposition home or self-care (01) | DRG 674 ==
LOC: 2 NORTH 13:21
PROVIDERS: Internal Medicine; Radiology Vascular & Interventional Radiology; Specialist; ADMITTING PHYSICIAN Hospitalist; ATTENDING PHYSICIAN Internal Medicine; CONSULT PHYSICIAN Internal Medicine Nephrology; EMERGENCY PHYSICIAN Student in an Organized Health Care Education/Training Program; FAMILY PHYSICIAN Family Medicine
PROC: 02H633Z Insertion of Infusion Device into Right Atrium, Percutaneous Approach (ICD-10-PCS; 2024-05-17)
PROC: 0JH63XZ Insertion of Tunneled Vascular Access Device into Chest Subcutaneous Tissue and Fascia, Percutaneous Approach (ICD-10-PCS; 2024-05-17)
PROC: 5A1D70Z Performance of Urinary Filtration, Intermittent, Less than 6 Hours Per Day (ICD-10-PCS; 2024-05-18)
DX: I12.0 Hypertensive chronic kidney disease with stage 5 chronic kidney disease or end stage renal disease (principal); D84.9 Immunodeficiency, unspecified; Z68.41 Body mass index [BMI] 40.0-44.9, adult; Z94.4 Liver transplant status; N17.9 Acute kidney failure, unspecified; E87.20 Acidosis, unspecified; N18.6 End stage renal disease; Z87.891 Personal history of nicotine dependence; E11.22 Type 2 diabetes mellitus with diabetic chronic kidney disease; E87.5 Hyperkalemia; K75.81 Nonalcoholic steatohepatitis (NASH); K74.60 Unspecified cirrhosis of liver; E78.00 Pure hypercholesterolemia, unspecified; E78.1 Pure hyperglyceridemia; E03.9 Hypothyroidism, unspecified; D63.1 Anemia in chronic kidney disease; M10.9 Gout, unspecified; E66.01 Morbid (severe) obesity due to excess calories; E11.21 Type 2 diabetes mellitus with diabetic nephropathy; E11.40 Type 2 diabetes mellitus with diabetic neuropathy, unspecified; F41.9 Anxiety disorder, unspecified; Z79.4 Long term (current) use of insulin; Z79.82 Long term (current) use of aspirin; Z79.899 Other long term (current) drug therapy; Z82.49 Family history of ischemic heart disease and other diseases of the circulatory system; Z83.3 Family history of diabetes mellitus; Z98.84 Bariatric surgery status
CPT/HCPCS: 36558; 71046; 74019; 76937; 77001; 80048; 80053; 82607; 82962; 83036; 83540; 83550; 83880; 84100; 85014; 85018; 85025; 86704; 86706; 86803; 87340; 93005; 93971; 93985; 99152; 99153; 99285; C1750; G0257; Q5106

== ENCOUNTER 2024-06-12 06:14 | Day surgery (SDC) | payer BC, SELFPAY ==
[2024-06-12] VITALS (11 sets, daily range): BP systolic 125–144; BP diastolic 62–73; BMI 39.8
[2024-06-12] MEDS: BACTROBAN NASAL 1 GRAM NASAL (07:07)
[2024-06-12 07:08] LABS: Glucose - Point of Care 303 mg/dl (70-99)
[2024-06-12] MEDS: PERIDEX 0.12% ORAL RINSE 15 ML PO (07:08)
--- NOTE | 2024-06-12 07:23 | W.SUR.PREOP ---
Pre-Operative Surgical Note
-
I have examined this patient prior to the performance of the scheduled procedure.
The patient's condition is unchanged from the time of the current History and
Physical and the patient is able to undergo the scheduled procedure.
[2024-06-12 07:28] LABS: Hematocrit 26.2 % (39.0-52.0); Hemoglobin 9.2 g/dL (13.0-18.0); Mean Corp Hgb Conc. 35.1 g/dL (33.0-37.0); Mean Corpuscular Volume 93.9 fL (80.0-94.0); Mean Platelet Volume 9.6 fL (7.4-10.4); Platelet Count 197 10^3/uL (130-400); Red Blood Cell Count 2.79 10^6/uL (4.70-6.10); Red Cell Dist. Width 15.9 % (11.5-14.5); White Blood Cell Count 8.2 10^3/uL (4.8-10.8)
[2024-06-12 07:31] LABS: Blood Urea Nitrogen 35 mg/dl (9-20); Calcium 8.5 mg/dl (8.4-10.2); Carbon Dioxide 27 mmol/L (22-30); Chloride 94 mmol/L (98-107); Estimated Creatinine Clearance 28 ml/min; Glucose 282 mg/dl (70-99); INR 0.97; PT 13.2 Sec (11.4-14.6); Potassium 3.5 mmol/L (3.5-5.1); Sodium 134 mmol/L (135-145); eGFR 17.49
[2024-06-12 07:32] LABS: APTT 24.4 Sec (23.4-35.0)
[2024-06-12 08:50] LABS: Glucose - Point of Care 285 mg/dl (70-99)
--- NOTE | 2024-06-12 09:23 | W.SUR.POST ---
Surgical Immediate Post Op
Note
Pre Op Diagnosis: ESRD
Post Op Diagnosis: ESRD
Procedure Performed: Left upper extremity radiocephalic AV fistula creation
Primary Surgeon: Prasanth Baptiste III MD
Assist: Taz Espinosa MD PGY1
Anesthesia: GETA
Estimated Blood Loss: 10 ml
Fluids: See anesthesia flowsheet
Drains/Shunts: N/A
Specimens/Cultures: N/A
Doppler/Duplex/Angio (Y/N): Y
Complications: None
Operative Findings: Positive thrill at left upper extremity AV fistula
--- NOTE | 2024-06-12 09:30 | OR.RPT ---
Operative Report
Operative Report
Date of Operation: 06/12/2024
Pre Op Diagnosis: End-stage renal disease requiring hemodialysis
Post Op Diagnosis: End-stage renal disease requiring hemodialysis
Procedure: Creation of left wrist radiocephalic arteriovenous fistula
Surgeon: Prasanth Baptiste III, MD
Work Force Advisor: Taz Espinosa MD PGY1
Anesthesia: General
Complications: None
Estimated Blood Loss: 10 cc
History and Indications for Procedure: 63-year-old male with end-stage renal disease requiring hemodialysis and in need of permanent hemodialysis access
Procedure in Detail: Soto Welch was correctly identified and brought to the operating room. He was placed supine on the operating table with the left arm abducted 90 degrees on a side table. After adequate induction of anesthesia I performed
intraoperative ultrasound on the veins of the left arm. I identified and measured the cephalic vein from the wrist to the shoulder. The vein was of adequate quality and diameter uniformly from the wrist to the upper arm for AV fistula creation.
The left radial artery was also identified at the wrist. An appropriate skin incision was marked at the wrist between the radial artery and cephalic vein. The left hand, wrist, forearm and upper arm were circumferentially prepped and draped in
usual sterile fashion. Preoperative antibiotics were administered. A timeout procedure was performed with the nursing and anesthesia staff confirming the patient's identity as well as the nature and laterality of the procedure.
A skin incision was made at the wrist through the previously placed skin rose. A combination of electrocautery and sharp dissection was used to expose the cephalic vein. Branches were ligated and divided between silk ties and metal clips. The
radial artery was exposed using sharp dissection. Proximal and distal control was obtained on the radial artery with vessel loops. The distal end of the cephalic vein was ligated with a silk tie and then transected with scissors. The vein was
flushed with heparinized saline solution. The vein flushed easily with no resistance. A 2.5 mm and then a 3 mm coronary dilator were passed easily through the cephalic vein. The radial artery vessel loops were secured. An arteriotomy was made
with an ophthalmic blade and extended slightly proximally and distally with Burgos scissors. The proximal and distal radial artery were flushed with heparinized saline solution. The end of the cephalic vein was spatulated and an end-to-side
anastomosis was created using a running 7-0 Prolene suture. Prior to the completion of the anastomosis the artery was allowed to temporarily forward bleed and backbleed. The area under the anastomosis was flushed with heparinized saline solution
to remove any potential thrombus or debris. The anastomosis was completed. The bulldog was removed from the vein. The proximal vessel loop was released first. After several heartbeats the distal vessel loop was released. There was an easily
palpable thrill in the cephalic vein along its course in the forearm. The anastomotic suture line was closely inspected and hemostasis was achieved. Hemostasis was achieved in the wound bed. The wound was irrigated with saline solution. There
was an easily palpable radial pulse proximal and distal to the arteriovenous anastomosis. The wound was closed in layers. Skin glue was applied.
At the conclusion of the case the patient had an easily palpable thrill in the cephalic vein in the forearm. The patient had a palpable radial pulse at the left wrist.
The patient tolerated the procedure well and was taken to the recovery room in good condition.
Attestation: I was present and responsible for the entire procedure
Signed:
Prasanth Baptiste III, MD
[facility] Vascular Surgery
[phone] (gssu)
[2024-06-12 09:38] LABS: Glucose - Point of Care 282 mg/dl (70-99)
[2024-06-12] MEDS: NOVOLOG vial 4 UNITS SC (09:54)
[2024-06-12] MEDS: ROXICODONE 5 MG PO (10:58)
--- NOTE | 2024-06-12 11:04 | W.[place]-PDMP ---
[place]-PDMP
-
Checked the [place]- Prescription Drug Monitoring Program website, no red flags identified; safe to proceed with prescription.
== END 2024-06-12 11:40 | disposition home or self-care (01) ==
LOC: CATH 06:14
PROVIDERS: ATTENDING PHYSICIAN Surgery Vascular Surgery; PRIMARYCARE PHYSICIAN Family Medicine
DX: E11.22 Type 2 diabetes mellitus with diabetic chronic kidney disease (principal); I12.0 Hypertensive chronic kidney disease with stage 5 chronic kidney disease or end stage renal disease; N18.6 End stage renal disease; Z99.2 Dependence on renal dialysis; Z79.4 Long term (current) use of insulin
CPT/HCPCS: 36821; 80048; 82962; 85027; 85610; 85730

== ENCOUNTER → 2024-08-07 13:47 | Outpatient (REF) | payer BC, SELFPAY | LOC: RAD 13:47 | PROVIDERS: ATTENDING PHYSICIAN Physician Assistant; FAMILY PHYSICIAN Family Medicine | DX: N18.6 End stage renal disease (principal); I77.0 Arteriovenous fistula, acquired | CPT/HCPCS: 93990 ==

== ENCOUNTER → 2024-08-14 10:20 | Outpatient (REF) | payer BC, SELFPAY ==
[2024-08-14 10:44] VITALS: BP 148/68; BP_SYST 83
[2024-08-14 11:00] VITALS: BMI 39.4
[2024-08-14 11:31] VITALS: BP 141/76
== END ==
LOC: RADI 10:20
PROVIDERS: ATTENDING PHYSICIAN Internal Medicine; FAMILY PHYSICIAN Family Medicine
DX: T82.49XA Other complication of vascular dialysis catheter, initial encounter (principal); Y82.8 Other medical devices associated with adverse incidents; N13.6 Pyonephrosis
CPT/HCPCS: 36581; 77001; C1750; C1769

== ENCOUNTER 2024-10-02 11:24 | Day surgery (SDC) | payer BC, SELFPAY ==
[2024-10-02] VITALS (11 sets, daily range): BP systolic 138–162; BP diastolic 62–86
[2024-10-02] MEDS: PERIDEX 0.12% ORAL RINSE 15 ML PO (12:42)
[2024-10-02] MEDS: BACTROBAN NASAL 1 GRAM NASAL (12:42)
[2024-10-02] MEDS: NSS 500 IV (12:56)
[2024-10-02 13:16] LABS: Hematocrit 23.5 % (39.0-52.0); Hemoglobin 8.3 g/dL (13.0-18.0); Mean Corp Hgb Conc. 35.3 g/dL (33.0-37.0); Mean Corpuscular Volume 97.1 fL (80.0-94.0); Platelet Count 149 10^3/uL (130-400); Red Cell Dist. Width 15.6 % (11.5-14.5)
[2024-10-02 13:28] LABS: INR 1.02; PT 13.7 Sec (11.4-14.6)
[2024-10-02 13:29] LABS: APTT 23.9 Sec (23.4-35.0)
[2024-10-02 14:26] LABS: Blood Urea Nitrogen 40 mg/dl (9-20); Calcium 9.0 mg/dl (8.4-10.2); Carbon Dioxide 29 mmol/L (22-30); Chloride 96 mmol/L (98-107); Estimated Creatinine Clearance 28 ml/min; Glucose 228 mg/dl (70-99); Potassium 3.6 mmol/L (3.5-5.1); Sodium 133 mmol/L (135-145); eGFR 16.93
--- NOTE | 2024-10-02 16:00 | W.IMMPOSTOP ---
Surgical Immed Post Op Note
-
Primary Surgeon: Oliva
Assisting Surgeon: Benitez Posada MD PGY2
Pre-op Diagnosis: ESRD
Post-op Diagnosis: ESRD
Procedure Performed: AVF superficialization
Anesthesia Type: General
Specimen / Cultures: None
Estimated Blood Loss: 10 cc
Complications: None
Operative Findings: Superficialization of AVF
--- NOTE | 2024-10-02 16:12 | OR.RPT ---
Operative Report
Operative Report
Date of Operation: 10/02/2024
Pre Op Diagnosis: Recently created left forearm arteriovenous fistula with anticipated difficulty for needle cannulation
Post Op Diagnosis: Recently created left forearm arteriovenous fistula with anticipated difficulty for needle cannulation
Procedure: Revision of left forearm arteriovenous fistula with branch vein ligation and superficialization
Surgeon: Prasanth Baptiste III, MD
Certified Real Estate Appraiser: Benitez Posada MD PGY2
Anesthesia: General
Complications: None
Estimated Blood Loss: Less than 20 cc
History and Indications for Procedure: 63-year-old male with recently created left forearm arteriovenous fistula. The cephalic vein was deep in the subcutaneous tissue and I anticipated difficulty with initial needle cannulation. He was brought to
the operating room for revision and superficialization of the cephalic vein
Procedure in Detail: Soto Welch was correctly identified and placed supine on the operating table. His left arm was abducted 90 degrees on an armboard. After adequate induction of anesthesia the left forearm radiocephalic arteriovenous
fistula was imaged with ultrasound. The cephalic vein was marked from the arteriovenous anastomosis to the elbow. The left arm was then prepped and draped in usual sterile fashion. The patient received preoperative antibiotics. A timeout
procedure was performed with the nursing and anesthesia staff confirming the patient's identity as well as nature and laterality of the procedure.
We made an incision over the previously made skin rose. Using careful sharp dissection and electrocautery we exposed the entire length of cephalic vein along the incision. Branches were ligated and divided between silk ties. The vein had matured
nicely and had an easily palpable thrill. The wound was irrigated with saline solution. Hemostasis was achieved in the wound bed with electrocautery. The subcutaneous tissue was then reapproximated underneath the cephalic vein with interrupted
3-0 Vicryl sutures. This elevated the vein into a more superficial location. Skin flaps were created with electrocautery. The skin was then closed over the cephalic vein with a running 4-0 Monocryl. Skin glue was applied. At the conclusion of
the case the patient had an easily palpable thrill in the vein immediately beneath the incision. The patient tolerated the procedure well was taken to the recovery in good condition.
Attestation: I was present and responsible for the entire procedure
Signed:
Prasanth Baptiste III, MD
Vascular Surgery
[facility]
[2024-10-02 16:17] LABS: Glucose - Point of Care 176 mg/dl (70-99)
[2024-10-02] MEDS: DILAUDID 0.5 MG IV ×2 (16:28→16:44)
[2024-10-02] MEDS: TYLENOL 650 MG PO (17:33)
== END 2024-10-02 18:10 | disposition home or self-care (01) ==
LOC: CATH 11:24
PROVIDERS: ATTENDING PHYSICIAN Surgery Vascular Surgery; PRIMARYCARE PHYSICIAN Family Medicine
DX: I12.0 Hypertensive chronic kidney disease with stage 5 chronic kidney disease or end stage renal disease (principal); E11.22 Type 2 diabetes mellitus with diabetic chronic kidney disease; N18.6 End stage renal disease; Z99.2 Dependence on renal dialysis; E78.5 Hyperlipidemia, unspecified; E03.9 Hypothyroidism, unspecified; Z79.82 Long term (current) use of aspirin; Z79.4 Long term (current) use of insulin
CPT/HCPCS: 36832; 80048; 82962; 85027; 85610; 85730

== ENCOUNTER → 2024-12-03 09:07 | Outpatient (REF) | payer BC, SELFPAY ==
--- NOTE | 2024-12-03 12:04 | PN.IRAD.UPD ---
Update Note - IRAD
- -
RIGHT SIDED TUNNELED DIALYSIS CATHETER REMOVED IN DEPARTMENT. CLEANED, PREPPED, AND DRAPED THE PATIENT. NO COMPLAINTS OR ISSUES FROM PATIENT, DRESSED WITH QUICKCLOT AND PRIMAPORE, REMOVED DUE TO WORKING LEFT FISTULA.
== END ==
LOC: RADI 09:07
PROVIDERS: ATTENDING PHYSICIAN Internal Medicine; FAMILY PHYSICIAN Family Medicine
DX: Z49.01 Encounter for fitting and adjustment of extracorporeal dialysis catheter (principal); N18.6 End stage renal disease
CPT/HCPCS: 36589